=== PATIENT | female | born 1950 | race Caucasian/White ===

== ENCOUNTER 2017-11-01 07:24 | Emergency (ER) | payer OTHER ==
--- OUTSIDE RECORDS SUMMARY | 2017-11-01 07:26 | XMS REPORT ---
:1950 Author Organization e[employer]Works Care Team Providers Name Role Phone Ana Rosa Hull Provider Role Unavailable Allergies No Known Allergies Problems Problem Type Condition Code Onset Dates Condition Status Problem Controlled diabetes mellitus type II E11.9 Active without complication Problem Diabetic polyneuropathy associated E11.42 Active with type 2 diabetes mellitus Problem Incontinence of urine R32 Active Problem Hypothyroidism E03.9 Active Problem Hypertension I10 Active Problem Obstructive sleep apnea G47.33 Active Problem Chronic pain associated with G89.4 Active significant psychosocial dysfunction Problem Generalized anxiety disorder F41.1 Active Problem Tobacco abuse counseling Z71.6 Active Medications No Known Medications Results No Known Results Summary Purpose eClinicalWorks Submission
--- OUTSIDE RECORDS SUMMARY | 2017-11-01 07:26 | XMS REPORT ---
:1950 Author Organization [employer] Care Team Providers Name Role Phone ChesterAna Rosa Provider Role Unavailable Allergies, Adverse Reactions, Alerts Substance Reaction Event Type N.K.D.A. Info Not Available Non Drug Allergy Problems Problem Type Condition Code Onset Dates [...] Active Problem Tobacco abuse counseling Z71.6 Active Assessment Diabetic polyneuropathy associated E11.42 Active with type 2 diabetes mellitus Assessment Generalized anxiety disorder F41.1 Active Assessment Controlled diabetes mellitus type II E11.9 Active without complication Assessment Hypertension I10 Active Medications Medication Code Code Instructions Start End Status Dosage System Date Date Morrison [facility] 71250859987 7.5-325 MG Active 1 tablet Orally every 6 as needed hrs [place] [facility] 44584133617 31 gauge Active USE TWO TIMES A DAY Requip [facility] 85461556966 0.25 MG Orally Active 1 tablet Once a day 1 to 3 hours before bedtime Tricor [facility] 44167597490 145 MG Orally Active 1 tablet Once a day with food Losartan [facility] 99087734065 50 Active TAKE ONE Potassium TABLET BY MOUTH DAILY Paxil [facility] 44679354257 40 MG Orally Active 1 tablet Once a day in the morning Levothyroxine [facility] 57620301017 150 Active TAKE ONE Sodium TABLET BY MOUTH DAILY Detrol [facility] 48425394822 1 MG Orally Active 1 tablet Twice a day Oxybutynin [facility] 42088077875 5 MG Orally Active 1 tablet Chloride ER Once a day Gabapentin [facility] [address]-97 400 MG Orally 4 Active 1 capsule times a day Metformin HCl [facility] 04928698108 1000 MG Orally Active 1 tablet Once a day with a meal Rosuvastatin [facility] 60795717884 20 MG Orally Apr 30, Active 1 tablet Calcium Once a day 2017 Lisinopril [facility] 92611474671 40 Active TAKE ONE TABLET BY MOUTH DAILY Nexium [facility] 33338707500 40 MG Orally Active 1 capsule Once a day Lovastatin [facility] 28841350984 10 MG Orally Active 1 tablet Once a day with the evening meal Symbicort [facility] 10709050509 160-4.5 MCG/ACT Active 2 puffs Inhalation Twice a day Lantus SoloStar [facility] 77312619647 100 unit/mL Active INJECT 70 Subcutaneous UNITS BID UNDER THE SKIN TWO TIMES A DAY Cymbalta [facility] 06218951961 60 MG Orally Active 1 capsule Once a day Results No Known Results Summary Purpose eClinicalWorks Submission
--- NOTE | 2017-11-01 07:57 | ER ---
Nurse's Notes [facility] Name: Kenia Wynn Age: 67 yrs Sex: Female : 1950 Arrival Date: 11/01/2017 Time: 07:28 Bed 17 Private MD: Jennifer Hull Diagnosis: Pain in right shoulder;Other chronic pain Presentation: 11/01 07:35 Presenting complaint: Patient states: R shoulder pain x 3 days with decreased ROM. Pt ss reports she was seen at by her pain management doctor who wanted to obtain an XRAY, but patient did not get XRAY because she "did not have a way" and her medications will not be ready until next week. Transition of care: patient was not received from another setting of care. Onset of symptoms was October 29, 2017. Risk Assessment: Do you want to hurt yourself or someone else? Patient reports no desire to harm self or others. Initial Sepsis Screen: Does the patient meet any 2 criteria? No. Patient's initial sepsis screen is negative. Does the patient have a suspected source of infection? No. Patient's initial sepsis screen is negative. Care prior to arrival: None. 07:35 Method Of Arrival: Ambulatory ss 07:35 Acuity: ALEXX 4 ss Historical: - Allergies: 07:38 No Known Allergies; ss - PMHx: 07:38 Hypertension; COPD; High Cholesterol; Diabetes - IDDM; ss - Immunization history:: Adult Immunizations up to date. - Social history:: Smoking status: Patient uses tobacco products, smokes one pack cigarettes per day. - Ebola Screening: : Patient denies exposure to infectious person Patient denies travel to an Ebola-affected area in the 21 days before illness onset. - Family history:: not pertinent. Screenin:11 Abuse screen: Denies threats or abuse. Nutritional screening: No deficits noted. em Tuberculosis screening: No symptoms or risk factors identified. Fall Risk None identified. Assessment: 07:40 General: Appears in no apparent distress. uncomfortable, Behavior is calm, cooperative. em Pain: Complains of pain in right shoulder. Neuro: Level of Consciousness is awake, alert, obeys commands, Oriented to person, place, time, situation. Cardiovascular: Capillary refill < 3 seconds Patient's skin is warm and dry. Respiratory: Airway is patent Respiratory effort is even, unlabored, Respiratory pattern is regular, symmetrical. GI: Abdomen is round non-distended. : No signs and/or symptoms were reported regarding the genitourinary system. EENT: No signs and/or symptoms were reported regarding the EENT system. Derm: Skin is intact, Skin is pink, warm \\T\\ dry. Musculoskeletal: Range of motion: limited in right shoulder Denies trauma. 09:16 Reassessment: Patient appears in no apparent distress at this time. Patient and/or em family updated on plan of care and expected duration. Pain level reassessed. Patient is alert, oriented x 3, equal unlabored respirations, skin warm/dry/pink. Patient states feeling better. Vital Signs: 07:38 BP 157 / 76; Pulse 70; Resp 17; Temp 97.0(TE); Pulse Ox 98% on R/A; Weight 103.42 kg; ss Height 5 ft. 3 in. (160.02 cm); Pain 10/10; 09:00 BP 142 / 68; Pulse 74; Resp 18; Pulse Ox 99% on R/A; Pain 8/10; em 07:38 Body Mass Index 40.39 (103.42 kg, 160.02 cm) ED Course: 07:28 Patient arrived in ED. mr 07:28 Jennifer Hull is Private Physician. mr 07:30 Carlos De Santiago MD is Attending Physician. prosper 07:38 Triage completed. ss 07:38 Dillon Villegas LVN is Primary Nurse. em 07:38 Arm band placed on right wrist. ss 07:40 Patient has correct armband on for positive identification. Bed in low position. Call em light in reach. 08:05 Shoulder Right (2 View) XRAY In Process Unspecified. EDMS 09:14 No provider procedures requiring assistance completed. Patient did not have IV access em during this emergency room visit. Administered Medications: 08:05 Drug: TORadol 60 mg Route: IM; Site: left gluteus; em 09:00 Follow up: Response: No adverse reaction; Pain is decreased em 08:05 Drug: Decadron 4 mg Route: PO; em 09:00 Follow up: Response: No adverse reaction; Pain is decreased em 08:05 Drug: Demerol 50 mg Route: IM; Site: left deltoid; em 09:00 Follow up: Response: No adverse reaction; Pain is decreased em 08:05 Drug: Phenergan 25 mg Route: IM; Site: left deltoid; em 09:00 Follow up: Response: No adverse reaction; Pain is decreased em Outcome: 07:56 Discharge ordered by . prosper 09:14 Discharged to home ambulatory. em 09:14 Condition: good 09:14 Discharge instructions given to patient, Instructed on discharge instructions, follow up and referral plans. no drinking with medication, no driving heavy equipment, medication usage, Demonstrated understanding of instructions, follow-up care, medications, Prescriptions given X 3. 09:20 Patient left the ED. em Signatures: Dispatcher [employer] EDCarlos Segal MD MD cha Rivera, Maria mr Dillon Villegas, STEFFEN HOUSE SUPERVISOR STEFFEN HOUSE SUPERVISOR Maura Garcia, RN RN ss
--- NOTE | 2017-11-01 07:57 | EDPHYS ---
Physician Documentation [facility] Name: Kenia Wynn Age: 67 yrs Sex: Female : 1950 Arrival Date: 11/01/2017 Time: 07:28 Bed 17 Private MD: Jennifer Hull ED Physician Carlos De Santiago HPI: 11/01 07:53 This 67 yrs old Female presents to ER via Ambulatory with complaints of prosper Shoulder Pain. 07:53 The patient or guardian complains of decreased range of motion, pain, that is acute. prosper right shoulder. Context: The problem was sustained at an unknown site. Onset: The symptoms/episode began/occurred 3 day(s) ago. Modifying factors: the symptoms are alleviated by nothing. remaining still, The symptoms are aggravated by movement, nothing. rotation of arm. Associated signs and symptoms: The patient has no apparent associated signs or symptoms. Severity of symptoms: At their worst the symptoms were moderate, in the emergency department the symptoms are unchanged. The patient has not experienced similar symptoms in the past. Historical: - Allergies: 07:38 No Known Allergies; ss - PMHx: 07:38 Hypertension; COPD; High Cholesterol; Diabetes - IDDM; ss - Immunization history:: Adult Immunizations up to date. - Social history:: Smoking status: Patient uses tobacco products, smokes one pack cigarettes per day. - Ebola Screening: : Patient denies exposure to infectious person Patient denies travel to an Ebola-affected area in the 21 days before illness onset. - Family history:: not pertinent. ROS: 07:53 Constitutional: Negative for fever, chills, and weight loss, Eyes: Negative for injury, prosper pain, redness, and discharge, ENT: Negative for injury, pain, and discharge, Neck: Negative for injury, pain, and swelling, Cardiovascular: Negative for chest pain, palpitations, and edema, Respiratory: Negative for shortness of breath, cough, wheezing, and pleuritic chest pain, Abdomen/GI: Negative for abdominal pain, nausea, vomiting, diarrhea, and constipation, Back: Negative for injury and pain, : Negative for injury, bleeding, discharge, and swelling, Skin: Negative for injury, rash, and discoloration, Neuro: Negative for headache, weakness, numbness, tingling, and seizure, Psych: Negative for depression, anxiety, suicide ideation, homicidal ideation, and hallucinations, Allergy/Immunology: Negative for hives, rash, and allergies, Endocrine: Negative for neck swelling, polydipsia, polyuria, polyphagia, and marked weight changes, Hematologic/Lymphatic: Negative for swollen nodes, abnormal bleeding, and unusual bruising. 07:53 MS/extremity: Positive for decreased range of motion, pain, of the anterior aspect of right shoulder and posterior aspect of right shoulder. Exam: 07:53 Constitutional: This is a well developed, well nourished patient who is awake, alert, prosper and in no acute distress. Head/Face: Normocephalic, atraumatic. Eyes: Pupils equal round and reactive to light, extra-ocular motions intact. Lids and lashes normal. Conjunctiva and sclera are non-icteric and not injected. Cornea within normal limits. Periorbital areas with no swelling, redness, or edema. ENT: Nares patent. No nasal discharge, no septal abnormalities noted. Tympanic membranes are normal and external auditory canals are clear. Oropharynx with no redness, swelling, or masses, exudates, or evidence of obstruction, uvula midline. Mucous membranes moist. Neck: Trachea midline, no thyromegaly or masses palpated, and no cervical lymphadenopathy. Supple, full range of motion without nuchal rigidity, or vertebral point tenderness. No Meningismus. Chest/axilla: Normal chest wall appearance and motion. Nontender with no deformity. No lesions are appreciated. Cardiovascular: Regular rate and rhythm with a normal S1 and S2. No gallops, murmurs, or rubs. Normal PMI, no JVD. No pulse deficits. Respiratory: Lungs have equal breath sounds bilaterally, clear to auscultation and percussion. No rales, rhonchi or wheezes noted. No increased work of breathing, no retractions or nasal flaring. Abdomen/GI: Soft, non-tender, with normal bowel sounds. No distension or tympany. No guarding or rebound. No evidence of tenderness throughout. Back: No spinal tenderness. No costovertebral tenderness. Full range of motion. Female : Normal external genitalia. Skin: Warm, dry with normal turgor. Normal color with no rashes, no lesions, and no evidence of cellulitis. Neuro: Awake and alert, GCS 15, oriented to person, place, time, and situation. Cranial nerves II-XII grossly intact. Motor strength 5/5 in all extremities. Sensory grossly intact. Cerebellar exam normal. Normal gait. Psych: Awake, alert, with orientation to person, place and time. Behavior, mood, and affect are within normal limits. 07:53 Musculoskeletal/extremity: Extremities: noted in the anterior aspect of right shoulder and posterior aspect of right shoulder: decreased ROM, pain, ROM: limited active range of motion due to pain, limited passive range of motion due to pain, Circulation is intact in all extremities. Sensation intact. Compartment Syndrome exam of affected extremity: is normal. DVT Exam: no swelling, no tenderness, negative Homans' sign noted on exam, no appreciated bluish discoloration, no erythema, no increased warmth, pain. Vital Signs: 07:38 BP 157 / 76; Pulse 70; Resp 17; Temp 97.0(TE); Pulse Ox 98% on R/A; Weight 103.42 kg; ss Height 5 ft. 3 in. (160.02 cm); Pain 10/10; 09:00 BP 142 / 68; Pulse 74; Resp 18; Pulse Ox 99% on R/A; Pain 8/10; em 07:38 Body Mass Index 40.39 (103.42 kg, 160.02 cm) ss MDM: 07:30 Patient medically screened. [facility] 07:55 Data reviewed: vital signs, nurses notes, radiologic studies, plain films. [facility] 11/01 07:53 Order name: Shoulder Right (2 View) XRAY [facility] 11/01 07:53 Order name: Ice pack; Complete Time: 07:55 [facility] 11/01 07:58 Order name: Sling; Complete Time: 09:17 [facility] Administered Medications: 08:05 Drug: TORadol 60 mg Route: IM; Site: left gluteus; em 09:00 Follow up: Response: No adverse reaction; Pain is decreased em 08:05 Drug: Decadron 4 mg Route: PO; em 09:00 Follow up: Response: No adverse reaction; Pain is decreased em 08:05 Drug: Demerol 50 mg Route: IM; Site: left deltoid; em 09:00 Follow up: Response: No adverse reaction; Pain is decreased em 08:05 Drug: Phenergan 25 mg Route: IM; Site: left deltoid; em 09:00 Follow up: Response: No adverse reaction; Pain is decreased em Disposition: 08/31/18 07:56 Discharged to Home. Impression: Pain in right shoulder, Other chronic pain. - Condition is Stable. - Discharge Instructions: Joint Pain, Arthritis, Musculoskeletal Pain, Shoulder Pain. - Prescriptions for Ibuprofen 600 mg Oral Tablet - take 1 tablet by ORAL route every 8 hours As needed take with food; 21 tablet. Tylenol- Codeine #3 300-30 mg Oral Tablet - take 2 tablet by ORAL route every 6 hours As needed; 30 tablet. Medrol ([facility]) 4 mg Oral Tablets, Dose Pack - take 1 tablet by ORAL route as directed - follow package instructions; 1 packet. - Medication Reconciliation Form, Thank You Letter, Antibiotic Education, Prescription Opioid Use form. - Follow up: Private Physician; When: 2 - 3 days; Reason: Recheck today's complaints, Continuance of care, Re-evaluation by your physician. - Problem is new. - Symptoms have improved. Signatures: Dispatcher [employer] Carlos Santana MD MD cha Munoz, Edgar, SUBGRADE ROLLER OPERATOR SUBGRADE ROLLER OPERATOR Maura Garcia RN RN ss Corrections: (The following items were deleted from the chart) 07:58 07:56 11/01/2017 07:56 Discharged to Home. Impression: Pain in right shoulder. prosper Condition is Stable. Forms are Medication Reconciliation Form, Thank You Letter, Antibiotic Education, Prescription Opioid Use. Follow up: Private Physician; When: 2 - 3 days; Reason: Recheck today's complaints, Continuance of care, Re-evaluation by your physician. Problem is new. Symptoms have improved. prosper 09:20 07:58 11/01/2017 07:56 Discharged to Home. Impression: Pain in right shoulder; Other em chronic pain. Condition is Stable. Discharge Instructions: Joint Pain, Arthritis, Musculoskeletal Pain, Shoulder Pain. Prescriptions for Ibuprofen 600 mg Oral Tablet - take 1 tablet by ORAL route every 8 hours As needed take with food; 21 tablet, Tylenol-Codeine #3 300-30 mg Oral Tablet - take 2 tablet by ORAL route every 6 hours As needed; 30 tablet, Medrol ([facility]) 4 mg Oral Tablets, Dose Pack - take 1 tablet by ORAL route as directed - follow package instructions; 1 packet. and Forms are Medication Reconciliation Form, Thank You Letter, Antibiotic Education, Prescription Opioid Use. Follow up: Private Physician; When: 2 - 3 days; Reason: Recheck today's complaints, Continuance of care, Re-evaluation by your physician. Problem is new. Symptoms have improved. prosper
[2017-11-01] MEDS ORDERED: MEPERIDINE HCL 50 MG/ML AMP ONE (08:05)
[2017-11-01] MEDS ORDERED: KETOROLAC 30 MG/ML INJ ONE (08:05)
[2017-11-01] MEDS ORDERED: DEXAMETHASONE 4 MG TAB ONE (08:05)
[2017-11-01] MEDS ORDERED: PROMETHAZINE 25 MG/ML VIAL ONE (08:05)
--- NOTE | 2017-11-01 09:15 | RAD REPORT ---
EXAM DESCRIPTION: RAD - Shoulder Right 2 View - 11/01/2017 8:06 am CLINICAL HISTORY: PAIN COMPARISON: No comparisons FINDINGS: Mild AC joint degenerative changes are present. No fracture or dislocation seen. IMPRESSION: Mild AC joint degenerative changes.
== END 2017-11-01 09:20 | disposition home or self-care (01) ==
LOC: ER 07:24
DX: G89.29 Other chronic pain (principal); I10 Essential (primary) hypertension; F17.210 Nicotine dependence, cigarettes, uncomplicated
CPT/HCPCS: 73030; 96372; 99283; J2175; J2550

== ENCOUNTER 2021-05-18 19:12 | Emergency (ER) | payer OTHER ==
--- OUTSIDE RECORDS SUMMARY | 2021-05-18 19:16 | XMS REPORT | Continuity of Care Document ---
:1950 Author Organization [facility] t Address [address] [place] [address] Care Team Providers Name Role Phone Kurtis Attending Clinician Unavailable Ivis Attending Clinician Unavailable Problems This patient has no known problems. Allergies, Adverse Reactions, Alerts This patient has no known allergies or adverse reactions. Medications Ordered Filled Start Stop Current Ordering Indication Dosage Frequency Signature Comments Components Source Medication Medication Date Date Medication? Clinician (SIG) Name Name Marcos Rodríguez Yes Sharri Inject [facility] Procedures This patient has no known procedures. Encounters Start End Encounter Admission Attending Care Care Encounter Source Date/Time Date/Time Type Type Clinicians Facility Department ID 2021-03-29 Outpatient Kurtis RADHA [facility] [id number] [facility] 14:24:54 Sharri [id number] [facility] 2021-03-29 Outpatient PotterST [facility]IASHANNON [facility] [id number] [facility] 14:23:28 Sharri [id number] [facility] 2021-03-29 Outpatient PotterRADHA corbett [facility] [id number] [facility] 13:48:09 Sharri [id number] [facility] 2021-03-29 Outpatient [facility]ANNON [facility] [id number] [facility] 13:47:01 Sharri [id number] [facility] 2021-03-29 Outpatient Kurtis, STLMLC [facility] [id number] [facility] 13:10:13 Sharri [id number] [facility] 2021-03-29 Outpatient Kurtis, STLMLC [facility] [id number] [facility] 13:08:48 Sharri [id number] [facility] 2021-03-29 Outpatient Kurtis, STLMLC [facility] [id number] [facility] 12:52:28 Sharri [id number] [facility] 2021-03-29 Outpatient Kurtis, STLMLC [facility] [id number] 12:07:10 Sharri [id number] [facility] 2021-03-29 Outpatient Kurtis, STLMLC STLC [id number] [facility] [address] 11:06:07 Sharri [id number] [facility] 2021-03-29 Outpatient Ivis, STLMLC STLC [id number] [address] 11:00:07 Sheila [id number] [facility] 2021-03-29 Outpatient Ivis STLMLC STLC [id number] 10:59:24 Sheila [id number] [facility] 2021-04-24 2021-04-24 ambulatory [facility]MLC [facility] [id number] [facility] 2021-02-09 2021-02-09 ambulatory [facility]LMLC [facility] [id number] [facility] 2021-02-01 2021-02-01 ambulatory [facility]LMLC [facility] [id number] [facility] 2020-12-05 2020-12-05 Outpatient [facility]LMLC [facility] [id number] [facility] 2020-11-28 2020-11-28 Outpatient [facility]LMLC [facility] [id number] [facility] 2020-11-10 2020-11-10 Outpatient STLMLC [facility] [id number] [facility] 2020-11-09 2020-11-09 Outpatient [facility]LMLC [facility] [id number] [facility] 2020-11-02 2020-11-02 Outpatient [facility]LMLC [facility] [id number] [facility] 2020-10-27 2020-10-27 Outpatient [facility]LMLC [facility] [id number] [facility] 2020-10-16 2020-10-16 Outpatient [facility]C [facility] [id number] [facility] 2020-10-11 2020-10-11 Outpatient [facility]C [facility] [id number] [facility] 2020-09-23 2020-09-23 Outpatient [facility] [id number] [facility] 2020-08-30 2020-08-30 Outpatient [facility] [id number] [facility] 2020-08-11 2020-08-11 Outpatient [facility] [id number] [facility] 2020-08-02 2020-08-02 Outpatient [facility] [id number] [facility] 2020-07-20 2020-07-20 Outpatient [facility] [id number] [facility] 2020-07-20 2020-07-20 Outpatient [facility] [id number] [facility] 2020-07-12 2020-07-12 Outpatient [facility] [id number] [facility] 2020-07-04 2020-07-04 Outpatient [facility] [id number] [facility] 2020-06-17 2020-06-17 Outpatient [facility] [id number] [facility] 2020-06-16 2020-06-16 Outpatient [facility] [id number] [facility] 2020-04-27 2020-04-27 Outpatient [facility] [id number] [facility] 2020-02-04 2020-02-04 Outpatient [facility] [id number] [facility] 2020-01-26 2020-01-26 Outpatient [facility] [id number] [facility] 2020-01-26 2020-01-26 Outpatient [facility] [id number] [facility] 2019-10-12 2019-10-12 [facility] [id number] [facility] 08[facility]06:00 08:06:00 [facility] l Medicine Outpat[facility] Clin[facility] 2019-10-05 2019-10-05 [facility] [id number] [facility] 14:20:00 14:20:00 [facility] Medicine Outpat[facility] Clin[facility] 2019-09-14 2019-09-14 [facility] [id number] 09:43:00 09:43:[address] [facility] Medicine Outpati [facility] Clinics 2019-07-28 2019-07-28 [facility] [id number] [facility] 16:10:00 16:10:00 [facility] Medicine Outpat[facility] ent Clinics 2019-07-28 2019-07-28 [facility] [id number] [facility] 10:18:00 10:18:00 [facility] Outpat[facility] Clin[facility] 2019-04-15 2019-04-15 [facility] [id number] [facility] 15:42:00 15:42:00 [facility] Clin[facility] 2019-04-09 2019-04-09 [facility] [id number] [facility] 13:08:00 13:08:00 [facility] Outpat[facility] Clinics 2019-03-16 2019-03-16 [facility] [id number] 11:40:00 11:40:00 [facility] Clin[facility] 2019-01-22 2019-01-22 [facility] [id number] [facility] 16:11:00 16:11:00 [facility] Medicine Medicine Outpati ent Clinics 2018-12-11 2018-12-11 [facility] [id number] [facility] 13:00:00 13:00:00 [facility] Outpat[facility] Clinics 2018-09-09 2018-09-09 [facility] [id number] [facility] 13:00:00 13:00:00 [facility] Medicine Outpati ent Clinics 2018-07-15 2018-07-15 [facility] [id number] [facility] 14:44:00 14:44:[address] [facility] Medicine Outpati ent Clinics 2018-06-11 2018-06-11 [facility] [id number] [facility] 16:22:00 16:22:00 [facility] Clin[facility] 2018-06-03 2018-06-03 [facility] [id number] [facility] 13:49:00 13:49:00 [facility] Clin[facility] 2018-05-21 2018-05-21 [facility] [id number] [facility] 13:00:00 13:00:00 [facility] Clin[facility] 2018-03-18 2018-03-18 [facility] [id number] [facility] 09:57:00 09:57:00 [facility] Clin[facility] 2018-02-19 2018-02-19 [facility] [id number] [facility] 13:00:00 13:00:00 [facility] Clin[facility] 2017-12-04 2017-12-04 [facility] [id number] [facility] 14:17:00 14:17:00 [facility] Clin[facility] 2017-11-27 2017-11-27 [facility] [id number] [facility] 13:00:00 13:00:00 [facility] Clin[facility] 2017-09-25 2017-09-25 [facility] [id number] [facility] 16:32:00 16:32:00 [facility] Outpat[facility] Clin[facility] 2017-09-09 2017-09-09 [facility] [id number] [facility] 13:00:00 13:00:00 [facility] Clin[facility] Results This patient has no known results.
[2021-05-18 20:25] LABS: Urine Blood Trace-intact (Negative); Urine Glucose 1+ (Negative); Urine Protein 1+ (Negative); Urine Specific Gravity >=1.030 (1.005-1.030); Urine pH 5.5 (5.0-7.0)
[2021-05-18] MEDS ORDERED: TRAMADOL HCL 50 MG TAB ONE (22:06)
[2021-05-18] MEDS ORDERED: LIDOCAINE 4% PATCH ONE (22:06)
[2021-05-18 22:24] LABS: Urine Amorphous Sediment 2+ /HPF (NONE SEEN); Urine Bacteria >50 /HPF (<20); Urine Mucus 2+ /HPF (NONE SEEN)
--- NOTE | 2021-05-18 22:28 | EDPHYS ---
Physician Documentation [facility] Name: Kenia Wynn Age: 70 yrs Sex: Female : 1950 Arrival Date: 05/18/2021 Time: 19:17 Bed 28 Private MD: ED Physician Hira Kinsey HPI: 05/18 21:30 This 70 yrs old Female presents to ER via Ambulatory with complaints of Low Back Pain, cp Rash on lower back, possible shingles. 21:30 The patient presents with pain that is acute, with no known mechanism of injury. The cp symptoms are located in the left lower back. The pain radiates to the posterior aspect of left leg. 21:30 Onset: The symptoms/episode began/occurred 5 day(s) ago. cp 21:30 Associated signs and symptoms: Pertinent positives: rash to left buttock area times 5 cp days. Severity of symptoms: in the emergency department the symptoms have improved, mildly. Patient reports concern for shingles after noticing rash to right buttock and a UTI due to urinary frequency. Historical: - PMHx: 20:04 COPD; Diabetes - IDDM; High Cholesterol; Hypertension; Shingles; vc1 - Immunization history:: Adult Immunizations up to date, Client reports receiving the 2nd dose of the Covid vaccine. - Social history:: Smoking status: Patient reports the use of cigarette tobacco products, smokes one pack cigarettes per day. ROS: 21:35 Constitutional: Negative for body aches, chills, fever, poor PO intake. cp 21:35 Eyes: Negative for injury, pain, redness, and discharge. cp 21:35 Neck: Negative for pain with movement, pain at rest, stiffness. 21:35 Cardiovascular: Negative for chest pain, palpitations. 21:35 Respiratory: Negative for cough, shortness of breath, wheezing. 21:35 Abdomen/GI: Negative for abdominal pain, nausea, vomiting, and diarrhea, constipation, bowel incontinence. 21:35 Back: Positive for pain at rest, pain with movement, of the left low back and left mid back, Negative for injury or acute deformity, decreased range of motion. 21:35 : Positive for urinary frequency, Negative for difficulty urinating, bladder incontinence. 21:35 MS/extremity: Positive for radiating pain to posterior left leg, Negative for decreased range of motion, paresthesias. 21:35 Skin: Positive for rash, of the left buttock. 21:35 Neuro: Negative for altered mental status, headache, numbness, tingling, weakness. 21:35 All other systems are negative. Exam: 21:40 Constitutional: The patient appears in no acute distress, alert, awake, non-toxic, well cp developed, well nourished, obese. 21:40 Head/Face: Normocephalic, atraumatic. cp 21:40 Eyes: Periorbital structures: appear normal, Conjunctiva: normal, no exudate, no injection, Lids and lashes: appear normal, bilaterally. 21:40 ENT: External ear(s): are unremarkable, Nose: is normal, Mouth: Lips: moist, Oral mucosa: moist, Posterior pharynx: Airway: no evidence of obstruction, patent. 21:40 Neck: ROM/movement: is normal, is supple, without pain, no range of motions limitations. 21:40 Cardiovascular: Rate: normal, Rhythm: regular, Edema: is not appreciated. 21:40 Respiratory: the patient does not display signs of respiratory distress, Respirations: normal, no use of accessory muscles, no retractions, labored breathing, is not present. 21:40 Abdomen/GI: Inspection: obese Palpation: abdomen is soft and non-tender, in all quadrants. 21:40 Back: pain, that is mild, of the left low back and left mid back, ROM is painful, with all movement, CVA tenderness, is absent, vertebral tenderness, is not appreciated, Straight leg raises: of both lower extremities does not illicit pain. 21:40 Skin: rash can be described as mild erythema, on the left buttock. 21:40 Neuro: Orientation: to person, place \T\ time. Mentation: is normal, Motor: moves all fours, strength is normal, Sensation: is normal, Gait: is steady, Deep tendon reflexes are 2+ (normal) in the right patellar, right Achilles, left patellar and left Achilles. Vital Signs: 19:57 BP 112 / 95; Pulse 95; Resp 18; Temp 97.9; Pulse Ox 97% ; Weight 96.62 kg; Height 5 ft. vc1 3 in. (160.02 cm); Pain 4/10; 21:31 BP 132 / 87; Pulse 94; Resp 20; Pulse Ox 98% ; ss7 22:31 BP 114 / 97; Pulse 98; Resp 18; Pulse Ox 98% on R/A; ss7 19:57 Body Mass Index 37.73 (96.62 kg, 160.02 cm) vc1 MDM: 21:09 Patient medically screened. cp 21:40 Differential diagnosis: sciatica, Herniated disc UTI, herpes zoster. cp 22:27 Data reviewed: vital signs, nurses notes, lab test result(s). cp 22:27 Counseling: I had a detailed discussion with the patient and/or guardian regarding: the cp historical points, exam findings, and any diagnostic results supporting the discharge/admit diagnosis, lab results, the need for outpatient follow up, a family practitioner, to return to the emergency department if symptoms worsen or persist or if there are any questions or concerns that arise at home. Response to treatment: the patient's symptoms have markedly improved after treatment, VSS. Pain improved. Will treat for UTI with oral antibiotics and concern for shingles with antivirals. Patient is prescribed hydrocodone for pain. Will discharge to home for continued monitoring. 05/18 20:25 Order name: Urine Dipstick-Ancillary; Complete Time: 21:37 EDMS 05/18 21:37 Interpretation: Reviewed. cp 05/18 21:38 Order name: Urine Microscopic Only; Complete Time: 22:26 cp 05/18 21:38 Order name: Urine Culture cp Administered Medications: 22:11 Drug: Lidoderm Patch 5 % (700 mg/patch) 1 patches Route: Topical; Site: rash; sf1 22:11 Drug: traMADol 50 mg Route: PO; sf1 22:43 Follow up: Response: Pain is decreased ss7 22:43 Drug: Augmentin (Amoxicillin-Clavulanate) 875 mg Route: PO; ss7 22:43 Follow up: Response: Medication administered at discharge. ss7 Disposition Summary: 05/18/21 22:28 Discharge Ordered Location: Home cp Problem: new cp Symptoms: have improved cp Condition: Stable cp Diagnosis - UTI/ Urinary tract infection, site not specified cp - Sciatica, left side cp Followup: cp - With: Private Physician - When: 2 - 3 days - Reason: Recheck today's complaints Discharge Instructions: - Discharge Summary Sheet cp - Sciatica cp - Urinary Tract Infection, Adult cp Forms: - Medication Reconciliation Form cp - Thank You Letter cp - Antibiotic Education cp - Prescription Opioid Use cp Prescriptions: - Lidoderm 5 % Topical adhesive patch,medicated - apply 1 patch by TOPICAL route once daily; 1 box; Refills: 0, Product Selection cp Permitted - Augmentin 875-125 mg Oral Tablet - take 1 tablet by ORAL route every 12 hours for 10 days; 20 tablet; Refills: 0, cp Product Selection Permitted - Cyclobenzaprine 10 mg Oral Tablet - take 1 tablet by ORAL route every 8 hours As needed; 30 tablet; Refills: 0, cp Product Selection Permitted - Acyclovir 800 mg Oral Tablet - take 1 tablet by ORAL route 5 times per day for 10 days; 50 tablet; Refills: 0, cp Product Selection Permitted Signatures: Dispatcher [employer] EDAR Carlos Spencer PA PA cp Calcote, Vanessa RN RN vc1 Galilea So RN RN sf1 Melanie Nuñez RN RN ss7
--- NOTE | 2021-05-18 22:28 | ER ---
Nurse's Notes [facility] Name: Kenia Wynn Age: 70 yrs Sex: Female : 1950 Arrival Date: 05/18/2021 Time: 19:17 Bed 28 Private MD: Diagnosis: UTI/ Urinary tract infection, site not specified;Sciatica, left side Presentation: 05/18 19:57 Chief complaint: Patient states: "I believe I have shingles on my lower back, I've had vc1 them multiple times. My Dr. can't get me in until June. I just can't take the pain anymore.". Coronavirus screen: Vaccine status: Patient reports receiving the 2nd dose of the covid vaccine. "Moderna" At this time, the client does not indicate any symptoms associated with coronavirus-19. Ebola Screen: No symptoms or risks identified at this time. Initial Sepsis Screen: Does the patient meet any 2 criteria? HR > 90 bpm. No. Patient's initial sepsis screen is negative. Does the patient have a suspected source of infection? No. Patient's initial sepsis screen is negative. Risk Assessment: Do you want to hurt yourself or someone else? Patient reports no desire to harm self or others. Onset of symptoms is unknown. 19:57 Method Of Arrival: Ambulatory vc1 19:57 Acuity: ALEXX 3 vc1 Triage Assessment: 20:04 General: Appears in no apparent distress. uncomfortable, Behavior is calm, cooperative, vc1 appropriate for age. Pain: Complains of pain in lumbar area, left low back and right low back Pain does not radiate. Pain currently is 4 out of 10 on a pain scale. at worst was 7 out of 10 on a pain scale. Pain began suddenly. Neuro: Level of Consciousness is awake, alert, obeys commands. Historical: - PMHx: 20:04 COPD; Diabetes - IDDM; High Cholesterol; Hypertension; Shingles; vc1 - Immunization history:: Adult Immunizations up to date, Client reports receiving the 2nd dose of the Covid vaccine. - Social history:: Smoking status: Patient reports the use of cigarette tobacco products, smokes one pack cigarettes per day. Screenin:28 Abuse screen: Denies threats or abuse. Nutritional screening: No deficits noted. ss7 Tuberculosis screening: No symptoms or risk factors identified. Fall Risk IV access (20 points). Assessment: 20:28 General: Appears in no apparent distress. uncomfortable, Behavior is calm, cooperative, ss7 appropriate for age. Pain: Complains of pain in left lower back. Neuro: No deficits noted. Cardiovascular: Heart tones S1 S2. Respiratory: Breath sounds are clear bilaterally. GI: No deficits noted. : No deficits noted. : Reports urgency, urinary frequency. EENT: No deficits noted. Derm: Skin has lesions on noted to the left buttock. Areas are erythematous with no wheeping or oozing. Vital Signs: 19:57 BP 112 / 95; Pulse 95; Resp 18; Temp 97.9; Pulse Ox 97% ; Weight 96.62 kg; Height 5 ft. vc1 3 in. (160.02 cm); Pain 4/10; 21:31 BP 132 / 87; Pulse 94; Resp 20; Pulse Ox 98% ; ss7 22:31 BP 114 / 97; Pulse 98; Resp 18; Pulse Ox 98% on R/A; ss7 19:57 Body Mass Index 37.73 (96.62 kg, 160.02 cm) vc1 ED Course: 19:17 Patient arrived in ED. jj6 20:04 Triage completed. vc1 20:05 Arm band placed on left wrist. vc1 20:26 Melanie Nuñez, RN is Primary Nurse. ss7 20:28 Patient has correct armband on for positive identification. Bed in low position. Call ss7 light in reach. 20:28 No provider procedures requiring assistance completed. Inserted saline lock: 20 gauge ss7 in left antecubital area, using aseptic technique. 21:04 Carlos Spencer PA is PHCP. cp 21:04 Hira Kinsey MD is Attending Physician. cp 21:54 Urine Culture Sent. ss7 21:54 Urine Microscopic Only Sent. ss7 22:30 IV discontinued, intact. ss7 Administered Medications: 22:11 Drug: Lidoderm Patch 5 % (700 mg/patch) 1 patches Route: Topical; Site: rash; sf1 22:11 Drug: traMADol 50 mg Route: PO; sf1 22:43 Follow up: Response: Pain is decreased ss7 22:43 Drug: Augmentin (Amoxicillin-Clavulanate) 875 mg Route: PO; ss7 22:43 Follow up: Response: Medication administered at discharge. ss7 Outcome: 22:28 Discharge ordered by . cp 22:30 Discharged to home ambulatory. ss7 22:30 Condition: good 22:30 Discharge instructions given to patient, Instructed on discharge instructions, Demonstrated understanding of instructions, follow-up care. 22:44 Patient left the ED. ss7 Signatures: Carlos Spencer PA PA cp Jeffries, Jennifer jj6 Janny Aquino RN RN vc1 Galilea So RN RN sf1 Melanie Nuñez RN RN ss7
[2021-05-18] MEDS ORDERED: AMOX/K CLAV 875 MG TAB ONE (22:36)
[2021-05-19 00:46] VITALS: TEMP 97.9
[2021-05-19 00:47] VITALS: O2SAT 98
[2021-05-19 00:52] VITALS: BP 114/97
== END 2021-05-18 22:44 | disposition home or self-care (01) ==
LOC: ER 19:12
DX: N39.0 Urinary tract infection, site not specified (principal); R21 Rash and other nonspecific skin eruption; M54.32 Sciatica, left side; I10 Essential (primary) hypertension; F17.210 Nicotine dependence, cigarettes, uncomplicated
CPT/HCPCS: 81003; 81015; 87086; 87088; 99283

== ENCOUNTER 2022-03-29 17:59 | Emergency (ER) | payer OTHER ==
--- OUTSIDE RECORDS SUMMARY | 2022-03-29 18:08 | XMS REPORT | Continuity of Care Document ---
:1950 Author Organization [facility] t Address [address] [place] [address] Care Team Providers Name Role Phone SHARRI WILLAMS Primary Care Physician Unavailable Sharri Willams Attending Clinician Unavailable Sheila Langston Attending Clinician Unavailable Julio Cesar Delcid DDS Attending Clinician JULIO CESAR DELCID Attending Clinician Unavailable Doctor Unassigned, [place] Attending Clinician Unavailable Only, Adc Test Attending Clinician Unavailable MARVA ALICEA Attending Clinician Unavailable Marva Baker Attending Clinician TREVER PITTS Attending Clinician Unavailable Trever Chacko Attending Clinician PHUONG ZENG Admitting Clinician Unavailable TREVER PITTS Admitting Clinician Unavailable Payers Payer Name Policy Type Policy Number Effective Date Expiration Date S wilian WELCH 53 [id number] 2021 Common HEALTHCARE DUAL 00:00:00 Spirit - [facility] MCR [facility] Dual 53 [id number] 2020 Common Complete MCR 00:00:00 Spirit - [facility] MEDICARE NOVITAS MB [id number] Common [facility] - [facility] MEDICAID [id number] 2018 Common 00:00:00 Spirit - [facility] MEDICARE NOVITAS MB [id number] Common Spirit [facility] Problems Condition Condition Condition Status Onset Resolution Last Treating Co mments Source Name Details Category Date Date Treatment Clinician Date [id number] Opioid Problem Common dependence Spirit , - CHI uncomplica [facility] [id number] Uncontroll Problem Co mmon ed type 2 Spirit diabetes - [facility]I mellitus [facility] [id number] Pulmonary Problem Comm on emphysema, Spirit unspecifie - CHI d emphysema [facility] Chronic Chronic Problem Common pain pain Spirit syndrome associated - CH I with [facility] significan [facility] psychosoci Center al dysfunctio n [id number] Diabetic Problem Commo n polyneurop Spirit athy - CHI associated [facility] with type [facility] 2 diabetes Medica l mellitus Center Generalize Generalize Problem C ommon d anxiety d anxiety Spir it disorder disorder - [facility] Hypothyroi Hypothyroi Problem C ommon dism dism Spirit [facility] Incontinen Incontinen Problem C ommon ce of ce of Spirit urine urine [facility] [id number] 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 - CHI 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 [facility] Counseling Tobacco Problem Comm on about abuse Spirit tobacco counseling - CHI use [facility] Obstructiv Obstructiv Problem C ommon e sleep e sleep Spirit apnea apnea - [facility] Hypertensi Hypertensi Problem C ommon on on Spirit - [facility] [id number] Current Problem Common moderate Spirit episode of - CHI major [facility] depressive [facility] disorder Medical without Center prior episode [id number] Arthritis Problem Co mmon [id number] of knee, Spirit right - [facility] [id number] Major Problem Common depressive Spirit disorder - CHI with [facility] single [facility] episode, Medical in full Center remission No known No known Disease Unive rs active active ity of problems problems [facility] Allergies, Adverse Reactions, Alerts Allergy Allergy Status Severity Reaction(s) Onset Inactive Treating Comm ents Source Name Type Date Date Clinician NO KNOWN Drug Active Univers ALLERGIE Class ity of S [facility] Social History Social Habit Start Date Stop Date Quantity Comments Source History of Current Smoker Common Spi rit - Tobacco Use [facility] Sex Assigned At Common Sp anastasiia - [facility] Exposure to 2021-11-10 2021-11-20 Not sure University of SARS-CoV-2 00:00:00 09:49:00 [place] Medical (event) Branch Smoking Status Start Date Stop Date Source Current Smoker 2022-02-09 00:00:00 Common Spiri t - [facility] Ce nter Tobacco smoking consumption Univ [facility] unknown Branch Medications Ordered Filled Start Stop Current Ordering Indication Dosage Frequency Signature Comments Components Source Medication Medication Date Date Medication? Clinician (SIG) Name Name buPROPion buPROPion 2021-03 No 1{table QD buPROPion HCl ER (SR) HCl ER (SR) 2-12 t_in_th HCl ER 200 MG 200 MG 00:00: e_morni (SR) 200 00 ng} MG buPROPion buPROPion 2021-03 No 1{table BID buPROPion HCl 75 MG HCl 75 MG 0-03 t} HCl 75 MG 00:00: 00 buPROPion buPROPion 2021-03 No 1{table BID buPROPion HCl 75 MG HCl 75 MG 0-03 t} HCl 75 MG 00:00: 00 ibuprofen Yes [id number] 600mg Take 1 U nivers 600 mg 9-19 tablet by ity of tablet 00:00: mouth [place] 00 every 6 Medical (six) Branch hours as needed for Pain (scale 4-6). amoxicillin Yes [id number] 500mg Take 1 Univers 500 mg 9-19 capsule by ity of capsule 00:00: mouth in [place] the Medical morning Branch and 1 capsule at noon and 1 capsule in the evening. chlorhexidi Yes [id number] 15mL Swish and Univers ne 0.12 % 9-19 spit out ity of mouthwash 00:00: 15 mL in [facility] the Medical morning Branch and 15 mL in the evening. ibuprofen Yes [id number] 600mg Take 1 U nivers 600 mg 9-19 tablet by ity of tablet 00:00: mouth [place] [address] every 6 Medical (six) Branch hours as needed for Pain (scale 4-6). amoxicillin Yes [id number] 500mg Take 1 Univers 500 mg 9-19 capsule by ity of capsule 00:00: mouth in [place] 00 the Medical morning Branch and 1 capsule at noon and 1 capsule in the evening. chlorhexidi 2021-0 Yes [id number] 15mL Swish and Univers ne 0.12 % 9-19 spit out ity of mouthwash 00:00: 15 [place] in [place] the Medical morning Branch and 15 mL in the evening. ibuprofen 2021-0 Yes [id number] 600mg Take 1 U nivers 600 mg 9-19 tablet by ity of tablet 00:00: mouth [place] 00 every 6 Medical (six) Branch hours as needed for Pain (scale 4-6). amoxicillin 2021-0 Yes [id number] 500mg Take 1 Univers 500 mg 9-19 capsule by ity of capsule 00:00: mouth in [place] 00 the Medical morning Branch and 1 capsule at noon and 1 capsule in the evening. chlorhexidi 2021-0 Yes [id number] 15mL Swish and Univers ne 0.12 % 9-19 spit out ity of mouthwash 00:00: 15 [place] in [place] 00 the Medical morning Branch and 15 mL in the evening. INSULIN 2021-0 Yes inject Univers GLARGINE,HU 11-09 under the ity of M.REC.ANLOG 13:39: skin. [place] ([place]) Medical Branch METFORMIN 2021-0 Yes Take by Unive rs HCL -08 mouth. ity of (METFORMIN 13:39: [place] ORAL) 29 Medical Branch HYDROcodone 2021-0 Yes 1{tbl} Take 1 Tab Univers -acetaminop 9-08 by mouth ity of hen 10-325 13:39: every 8 [place] mg tablet 29 (eight) Medical hours as Branch needed. gabapentin 2021-0 Yes 400mg Take 400 Un tye (NEURONTIN) 9-08 mg by ity of 400 mg 13:39: mouth 3 [place] capsule 29 (three) Medical times Branch daily. fenofibrate 2021-0 Yes 145mg Take 145 U nivers (TRICOR) 9-08 mg by ity of 145 mg 13:39: mouth [place] tablet 29 daily. Medical Branch aspirin 81 2021-0 Yes 81mg Take 81 mg U nivers mg chewable 9-08 by mouth ity of tablet 13:39: daily. [place] 29 Medical Branch DULoxetine Yes 60mg Take 60 mg U nivers (CYMBALTA) 9-08 by mouth ity o f 60 mg 13:39: daily. [place] capsule [address] [place] [address] Branch lovastatin Yes 10mg Take 10 mg U nivers (MEVACOR) 9-08 by mouth ity of 10 mg 13:39: at [place] tablet 29 bedtime. Medical Branch losartan Yes 50mg Take 50 mg Uni vers (COZAAR) 50 908 by mouth ity of mg tablet 13:39: daily. [address] Branch paroxetine Yes 20mg Take 20 mg U nivers (PAXIL) 20 08 by mouth ity o f mg tablet 13:39: daily. [address] Branch Levothyroxi Yes Take by Uni vers ne 9-08 mouth. ity of (TIROSINT) 13:39: [place] [address] [place] [address] Branch INSULIN Yes inject Univers GLARGINE,HU 11-09 under the ity of M.REC.ANLOG 13:39: skin. [place] ([place]) [address] [place] [address] Branch METFORMIN Yes Take by Unive rs HCL 9-08 mouth. ity of (METFORMIN 13:39: [place] ORAL) [address] [place] [address] Branch HYDROcodone Yes 1{tbl} Take 1 Tab Univers -acetaminop 908 by mouth ity of hen 10-325 13:39: every 8 [place] mg tablet 29 (eight) Medical hours as Branch needed. gabapentin Yes 400mg Take 400 Un tye (NEURONTIN) 9-08 mg by ity of 400 mg 13:39: mouth 3 [place] capsule 29 (three) Medical times Branch daily. fenofibrate Yes 145mg Take 145 U nivers (TRICOR) 9-08 mg by ity of 145 mg 13:39: mouth [place] tablet 29 daily. Medical Branch aspirin 81 Yes 81mg Take 81 mg U nivers mg chewable 9-08 by mouth ity of tablet 13:39: daily. [address] Branch DULoxetine Yes 60mg Take 60 mg U nivers (CYMBALTA) 9-08 by mouth ity o f 60 mg 13:39: daily. [place] capsule 29 Medical Branch lovastatin Yes 10mg Take 10 mg U nivers (MEVACOR) 9-08 by mouth ity of 10 mg 13:39: at [place] tablet 29 bedtime. Medical Branch losartan Yes 50mg Take 50 mg Uni vers (COZAAR) 50 9-08 by mouth ity of mg tablet 13:39: daily. [address] Branch paroxetine Yes 20mg Take 20 mg U nivers (PAXIL) 20 08 by mouth ity o f mg tablet 13:39: daily. [address] Branch Levothyroxi Yes Take by Uni vers ne 9-08 mouth. ity of (TIROSINT) 13:39: [place] 150 mcg Medical [facility] Branch INSULIN Yes inject Univers GLARGINE,HU 11-09 under the ity of M.REC.ANLOG 13:39: skin. [place] ([place]) [address] [place] [address] Branch METFORMIN Yes Take by Unive rs HCL 9-08 mouth. ity of (METFORMIN 13:39: [place] ORAL) [address] [place] [address] Branch HYDROcodone Yes 1{tbl} Take 1 Tab Univers -acetaminop 9-08 by mouth ity of hen 10-325 13:39: every 8 [place] mg tablet 29 (eight) Medical hours as Branch needed. gabapentin Yes 400mg Take 400 Un tye (NEURONTIN) 9-08 mg by ity of 400 mg 13:39: mouth 3 [place] capsule 29 (three) Medical times Branch daily. fenofibrate Yes 145mg Take 145 U nivers (TRICOR) 9-08 mg by ity of 145 mg 13:39: mouth [place] tablet 29 daily. Medical Branch aspirin 81 Yes 81mg Take 81 mg U nivers mg chewable 9-08 by mouth ity of tablet 13:39: daily. [address] Branch DULoxetine Yes 60mg Take 60 mg U nivers (CYMBALTA) 9-08 by mouth ity o f 60 mg 13:39: daily. [address] Branch lovastatin Yes 10mg Take 10 mg U nivers (MEVACOR) 9-08 by mouth ity of 10 mg 13:39: at [place] tablet 29 bedtime. Medical Branch losartan Yes 50mg Take 50 mg Uni vers (COZAAR) 50 11-09 by mouth ity of mg tablet 13:39: daily. [place] [address] Medical Branch paroxetine 0 Yes 20mg Take 20 mg U nivers (PAXIL) 20 11-09 by mouth ity o f mg tablet 13:39: daily. [place] [address] Medical Branch Levothyroxi 0 Yes Take by Uni vers ne 11-09 mouth. ity of (TIROSINT) 13:39: [place] 150 [facility] 29 Medical capsule Branch amoxicillin 0 Yes [id number] 1{tbl} Take 1 Univers -clavulanat 5-15 tablet by ity of e 875-125 00:00: mouth [place] mg per 00 every 12 Medical tablet (twelve) Branch hours. amoxicillin 0 Yes [id number] 1{tbl} Take 1 Univers -clavulanat 5-15 tablet by ity of e 875-125 00:00: mouth [place] mg per 00 every 12 Medical tablet (twelve) Branch hours. amoxicillin 0 Yes [id number] 1{tbl} Take 1 Univers -clavulanat 5-15 tablet by ity of e 875-125 00:00: mouth [place] mg per 00 every 12 Medical tablet (twelve) Branch hours. Bupivicaine Bupivicaine No 2.5mg Common [place] 11-10 Spirit 00:00: - [facility] Kenalog Kenalog No 40mg Common (Triamcinol (Triamcinol 11-10 S pirit one) one) 00:00: - [facility] Bupivicaine Bupivicaine 0 No Common [place] 11-10 Spirit 00:00: - [facility] Kenalog Kenalog 0 No 40mg Common (Triamcinol (Triamcinol - S pirit one) one) 00:00: - [facility] Bupivicaine Bupivicaine 2020-0 No Common [place] 11-10 Spirit 00:00: - [facility] Kenalog Kenalog 0 No 40mg Common (Triamcinol (Triamcinol - S pirit one) one) 00:00: - CHI 00 [facility] Bupivicaine Bupivicaine 1-0 No 2.5mg Common [place] 9 Spirit 00:00: - CHI 00 [facility] Kenalog Kenalog 2020-0 No 40mg Common (Triamcinol (Triamcinol 9-09 S pirit one) one) 00:00: - CHI 00 [facility] Bupivicaine Bupivicaine 2020-0 No 2.5mg Common [place] 11-10 Spirit 00:00: - CHI 00 [facility] Kenalog Kenalog 2020-0 No 40mg Common (Triamcinol (Triamcinol 9- S pirit one) one) 00:00: - CHI 00 [facility] Bupivicaine Bupivicaine 2020-0 No 2.5mg Common [place] 11-10 Spirit 00:00: - CHI 00 [facility] Kenalog Kenalog 2020-0 No 40mg Common (Triamcinol (Triamcinol 9- S pirit one) one) 00:00: - CHI 00 [facility] Bupivicaine Bupivicaine 2020-0 No 2.5mg Common [place] 11-10 Spirit 00:00: - CHI 00 [facility] Kenalog Kenalog 2020-0 No 40mg Common (Triamcinol (Triamcinol 9-09 S pirit one) one) 00:00: - CHI 00 [facility] Bupivicaine Bupivicaine 2020-0 No 2.5mg Common [place] 11-10 Spirit 00:00: - CHI 00 [facility] Kenalog Kenalog 1-0 No 40mg Common (Triamcinol (Triamcinol 9-09 S pirit one) one) 00:00: - CHI 00 [facility] Bupivicaine Bupivicaine 1-0 No 2.5mg Common [place] 11-10 Spirit 00:00: - CHI 00 [facility] Kenalog Kenalog 1-0 No 40mg Common (Triamcinol (Triamcinol 9-09 S pirit one) one) 00:00: - CHI 00 [facility] Bupivicaine Bupivicaine 2021-0 No 2.5mg Common [place] 11-10 Spirit 00:00: - CHI 00 [facility] Kenalog Kenalog 2020-0 No 40mg Common (Triamcinol (Triamcinol 11-10 S pirit one) one) 00:00: - CHI 00 [facility] Bupivicaine Bupivicaine 2020-0 No 2.5mg Common [place] 11-10 Spirit 00:00: - [facility] Kenalog Kenalog 2020-0 No 40mg Common (Triamcinol (Triamcinol 11-10 S pirit one) one) 00:00: - CHI 00 [facility] Linzess 72 Linzess 72 2020-0 2020- No QD Linzess 72 MCG MCG 11-0230 MCG 00:00: 00:00 00 :00 Synvisc 1 Synvisc 1 2020-0 No 6mg Com mon 07-12 Spirit 00:00: - [facility] Bupivicaine Bupivicaine 2020-0 No 2.5mg Common [place] 07-12 Spirit 00:00: - CHI 00 [facility] Synvisc 1 Synvisc 1 2020-0 No 6mg Com mon 07-12 Spirit 00:00: - CHI 00 [facility] Bupivicaine Bupivicaine 2020-0 No Common [place] 07-12 Spirit 00:00: - CHI 00 [facility] Synvisc 1 Synvisc 1 2020-0 No 6mg Com mon - Spirit 00:00: - CHI 00 [facility] Bupivicaine Bupivicaine 2020-0 No Common [place] - Spirit 00:00: - CHI 00 [facility] Synvisc 1 Synvisc 1 2020-0 No 6mg Com mon - Spirit 00:00: - CHI 00 [facility] Bupivicaine Bupivicaine 2020-0 No 2.5mg Common [place] - Spirit 00:00: - CHI 00 [facility] Synvisc 1 Synvisc 1 2020-0 No 6mg Com mon - Spirit 00:00: - CHI 00 [facility] Bupivicaine Bupivicaine 2021-0 No 2.5mg Common [place] - Spirit 00:00: - [facility] Synvisc 1 Synvisc 1 0 No 6mg Com 07-12 Spirit 00:00: - [facility] Bupivicaine Bupivicaine 2020-0 No 2.5mg Common [place] 07-12 Spirit 00:00: - [facility] Synvisc 1 Synvisc 1 0 No 6mg Com 07-12 Spirit 00:00: - [facility] Bupivicaine Bupivicaine 0 No 2.5mg Common [place] 07-12 Spirit 00:00: - [facility] Synvisc 1 Synvisc 1 No 6mg Com 07-12 Spirit 00:00: - [facility] Bupivicaine Bupivicaine 2020-0 No 2.5mg Common [place] 07-12 Spirit 00:00: - [facility] Synvisc 1 Synvisc 1 0 No 6mg Com 07-12 Spirit 00:00: - [facility] Bupivicaine Bupivicaine 2020-0 No 2.5mg Common [place] 07-12 Spirit 00:00: - [facility] Synvisc 1 Synvisc 1 No 6mg Com 07-12 Spirit 00:00: - [facility] Bupivicaine Bupivicaine 0 No 2.5mg Common [place] 07-12 Spirit 00:00: - [facility] Synvisc 1 Synvisc 1 0 No 6mg Com 07-12 Spirit 00:00: - [facility] Bupivicaine Bupivicaine 0 No 2.5mg Common [place] 07-12 Spirit 00:00: - [facility] HYDROcodone 2014- Yes 1{tbl} Take 1 Tab Univers -acetaminop 2-04 by mouth ity of hen (NORCO) 00:00: every 8 [place] as 10-325 mg 00 (eight) Medical tablet hours as Branch needed for Pain (scale 7-10). HYDROcodone 2014-03 Yes 1{tbl} Take 1 Tab Univers -acetaminop 2-04 by mouth ity of hen (NORCO) 00:00: every 8 [place] as 10-325 mg 00 (eight) Medical tablet hours as Branch needed for Pain (scale 7-10). HYDROcodone 2014-03 Yes 1{tbl} Take 1 Tab Univers -acetaminop 2-04 by mouth ity of hen (NORCO) 00:00: every 8 [place] as 10-325 mg 00 (eight) Medical tablet hours as Branch needed for Pain (scale 7-10). Lantus Lantus Yes Sharri Inject 60 Commo n SoloStar SoloStar Mcmullen units Spiri t [facility] NexIUM 40 NexIUM 40 No 1{capsu QD NexIUM 40 MG MG le} MG Losartan Losartan No Losartan Potassium-H Potassium-H Potassium- CTZ 50-12.5 CTZ 50-12.5 HCTZ MG MG 50-12.5 MG PARoxetine PARoxetine No PARoxetine HCl 40 MG HCl 40 MG HCl 40 MG Levothyroxi Levothyroxi No Levothyrox ne Sodium ne Sodium ine Sodium 125 MCG 125 MCG 125 MCG Rybelsus 7 Rybelsus 7 No Rybelsus 7 MG MG MG Breztri Breztri No Breztri Aerosphere Aerosphere Aerosphere 160-9-4.8 160-9-4.8 160-9-4.8 MCG/ACT MCG/ACT MCG/ACT DULoxetine DULoxetine No DULoxetine HCl 60 MG HCl 60 MG HCl 60 MG Rybelsus 14 Rybelsus 14 No QD Rybelsus MG MG 14 MG Hancock Hancock No 1{table BID Hancock 10-325 MG 10-325 MG t_as_ne 10-325 MG eded} Gabapentin Gabapentin No 1{capsu TID Gabapentin 600 MG 600 MG le} 600 MG Century Century No Century Senior Senior Senior Formula Formula Formula metFORMIN metFORMIN No metFORMIN HCl 1000 MG HCl 1000 MG HCl 1000 MG Paxil 40 MG Paxil 40 MG No 1{table QD Paxil 40 t_in_th MG e_morni ng} Pen Advance Pen Advance No Pen 31G X 6 MM 31G X 6 MM Advance 31G X 6 MM Kroger Pen Kroger Pen No Kroger Pen Advance 31G Advance 31G Advance X 6 MM X 6 MM 31G X 6 MM metFORMIN metFORMIN No metFORMIN HCl 1000 MG HCl 1000 MG HCl 1000 MG [place]ancock Hancock No 1{table BID [place]ancock 10-325 MG 10-325 MG t_as_ne 10-325 MG eded} Rosuvastati Rosuvastati No Rosuvastat n Calcium n Calcium in Calcium 20 MG 20 MG 20 MG Losartan Losartan No Losartan Potassium-H Potassium-H Potassium- CTZ 50-12.5 CTZ 50-12.5 HCTZ MG MG 50-12.5 MG Breztri Breztri No Breztri Aerosphere Aerosphere Aerosphere 160-9-4.8 160-9-4.8 160-9-4.8 MCG/ACT MCG/ACT MCG/ACT Gabapentin Gabapentin No 1{capsu TID Gabapentin 600 MG 600 MG le} 600 MG Aspirin 81 Aspirin 81 No Aspirin 81 Century Century No Century Senior Senior Senior Formula Formula Formula NexIUM 40 NexIUM 40 No 1{capsu QD NexIUM 40 MG MG le} MG Lisinopril Lisinopril No Lisinopril 40 40 40 Cymbalta 60 Cymbalta 60 No 1{capsu QD Cymbalta MG MG le} 60 MG Rybelsus 7 Rybelsus 7 No QD Rybelsus 7 MG MG MG Lantus Lantus No Lantus SoloStar SoloStar SoloStar 100 unit/mL 100 unit/mL 100 unit/mL Levothyroxi Levothyroxi No QD Levothyrox ne Sodium ne Sodium ine Sodium 125 MCG 125 MCG 125 MCG Breztri Breztri No Breztri Aerosphere Aerosphere Aerosphere 160-9-4.8 160-9-4.8 160-9-4.8 MCG/ACT MCG/ACT MCG/ACT Pen Advance Pen Advance No Pen 31G X 6 MM 31G X 6 MM Advance 31G X 6 MM Losartan Losartan No Losartan Potassium-H Potassium-H Potassium- CTZ 50-12.5 CTZ 50-12.5 HCTZ MG MG 50-12.5 MG Kroger Pen Kroger Pen No Kroger Pen Advance 31G Advance 31G Advance X 6 MM X 6 MM 31G X 6 MM Lantus Lantus No Lantus SoloStar SoloStar SoloStar 100 unit/mL 100 unit/mL 100 unit/mL metFORMIN metFORMIN No metFORMIN HCl 1000 MG HCl 1000 MG HCl 1000 MG Hancock Hancock No 1{table BID Hancock 10-325 MG 10-325 MG t_as_ne 10-325 MG eded} Levothyroxi Levothyroxi No QD Levothyrox ne Sodium ne Sodium ine Sodium 125 MCG 125 MCG 125 MCG PARoxetine PARoxetine No PARoxetine HCl 40 MG HCl 40 MG HCl 40 MG Aspirin 81 Aspirin 81 No Aspirin 81 Gabapentin Gabapentin No 1{capsu TID Gabapentin 600 MG 600 MG le} 600 MG Rybelsus 7 Rybelsus 7 No Rybelsus 7 MG MG MG NexIUM 40 NexIUM 40 No 1{capsu QD NexIUM 40 MG MG le} MG Senior Senior Senior Formula Formula Formula Cymbalta 60 Cymbalta 60 No 1{capsu QD Cymbalta MG MG le} 60 MG Rosuvastati Rosuvastati No Rosuvastat n Calcium n Calcium in Calcium 20 MG 20 MG 20 MG Lisinopril Lisinopril No Lisinopril 40 40 40 Rybelsus 7 Rybelsus 7 No Rybelsus 7 MG MG MG Senior Senior Senior Formula Formula Formula Pen Advance Pen Advance No Pen 31G X 6 MM 31G X 6 MM Advance 31G X 6 MM Gabapentin Gabapentin No 1{capsu TID Gabapentin 600 MG 600 MG le} 600 MG Lisinopril Lisinopril No Lisinopril 40 40 40 Levothyroxi Levothyroxi No QD Levothyrox ne Sodium ne Sodium ine Sodium 125 MCG 125 MCG 125 MCG Cymbalta 60 Cymbalta 60 No 1{capsu QD Cymbalta MG MG le} 60 MG Pen Advance Pen Advance No Pen 31G X 6 MM 31G X 6 MM Advance 31G X 6 MM Rybelsus 14 Rybelsus 14 No QD Rybelsus MG MG 14 MG Kroger Pen Kroger Pen No Kroger Pen Advance 31G Advance 31G Advance X 6 MM X 6 MM 31G X 6 MM NexIUM 40 NexIUM 40 No 1{capsu QD NexIUM 40 MG MG le} MG Rosuvastati Rosuvastati No Rosuvastat n Calcium n Calcium in Calcium 20 MG 20 MG 20 MG metFORMIN metFORMIN No metFORMIN HCl 1000 MG HCl 1000 MG HCl 1000 MG Aspirin 81 Aspirin 81 No Aspirin 81 Lantus Lantus No Lantus SoloStar SoloStar SoloStar 100 unit/mL 100 unit/mL 100 unit/mL Losartan Losartan No Losartan Potassium-H Potassium-H Potassium- CTZ 50-12.5 CTZ 50-12.5 HCTZ MG MG 50-12.5 MG Breztri Breztri No Breztri Aerosphere Aerosphere Aerosphere 160-9-4.8 160-9-4.8 160-9-4.8 MCG/ACT MCG/ACT MCG/ACT Hancock Hancock No 1{table BID Hancock 10-325 MG 10-325 MG t_as_ne 10-325 MG eded} PARoxetine PARoxetine No PARoxetine HCl 40 MG HCl 40 MG HCl 40 MG Linzess 72 Linzess 72 No Linzess 72 MCG MCG MCG Rybelsus 7 Rybelsus 7 No Rybelsus 7 MG MG MG DULoxetine DULoxetine No DULoxetine HCl 60 MG HCl 60 MG HCl 60 MG NexIUM 40 NexIUM 40 No 1{capsu QD NexIUM 40 MG MG le} MG Rosuvastati Rosuvastati No Rosuvastat n Calcium n Calcium in Calcium 20 MG 20 MG 20 MG Levothyroxi Levothyroxi No Levothyrox ne Sodium ne Sodium ine Sodium 125 MCG 125 MCG 125 MCG Losartan Losartan No Losartan Potassium-H Potassium-H Potassium- CTZ 50-12.5 CTZ 50-12.5 HCTZ MG MG 50-12.5 MG Rybelsus 14 Rybelsus 14 No QD Rybelsus MG MG 14 MG metFORMIN metFORMIN No metFORMIN HCl 1000 MG HCl 1000 MG HCl 1000 MG Kroger Pen Kroger Pen No Kroger Pen Advance 31G Advance 31G Advance X 6 MM X 6 MM 31G X 6 MM BD Pen BD Pen No BD Pen Needle Needle Needle Micro U/F Micro U/F Micro U/F 32G X 6 MM 32G X 6 MM 32G X 6 MM Aspirin 81 Aspirin 81 No Aspirin 81 Hancock Hancock No 1{table BID [place]ancock 10-325 MG 10-325 MG t_as_ne 10-325 MG eded} Lisinopril Lisinopril No Lisinopril 40 40 40 Gabapentin Gabapentin No 1{capsu TID Gabapentin 600 MG 600 MG le} 600 MG [facility] Senior Senior Formula Formula Formula PARoxetine PARoxetine No PARoxetine HCl 40 MG HCl 40 MG HCl 40 MG Breztri Breztri No Breztri Aerosphere Aerosphere Aerosphere 160-9-4.8 160-9-4.8 160-9-4.8 MCG/ACT MCG/ACT MCG/ACT Lantus Lantus No Lantus SoloStar SoloStar SoloStar 100 unit/mL 100 unit/mL 100 unit/mL Pen Advance Pen Advance No Pen 31G X 6 MM 31G X 6 MM Advance 31G X 6 MM Linzess 72 Linzess 72 No Linzess 72 MCG MCG MCG Rybelsus 7 Rybelsus 7 No Rybelsus 7 MG MG MG DULoxetine DULoxetine No DULoxetine HCl 60 MG HCl 60 MG HCl 60 MG NexIUM 40 NexIUM 40 No 1{capsu QD NexIUM 40 MG MG le} MG Rosuvastati Rosuvastati No Rosuvastat n Calcium n Calcium in Calcium 20 MG 20 MG 20 MG Levothyroxi Levothyroxi No Levothyrox ne Sodium ne Sodium ine Sodium 125 MCG 125 MCG 125 MCG Losartan Losartan No Losartan Potassium-H Potassium-H Potassium- CTZ 50-12.5 CTZ 50-12.5 HCTZ MG MG 50-12.5 MG Rybelsus 14 Rybelsus 14 No QD Rybelsus MG MG 14 MG metFORMIN metFORMIN No metFORMIN HCl 1000 MG HCl 1000 MG HCl 1000 MG Kroger Pen Kroger Pen No Kroger Pen Advance 31G Advance 31G Advance X 6 MM X 6 MM 31G X 6 MM BD Pen BD Pen No BD Pen Needle Needle Needle Micro U/F Micro U/F Micro U/F 32G X 6 MM 32G X 6 MM 32G X 6 MM Aspirin 81 Aspirin 81 No Aspirin 81 Hancock Hancock No 1{table BID Hancock 10-325 MG 10-325 MG t_as_ne 10-325 MG eded} Lisinopril Lisinopril No Lisinopril 40 40 40 Gabapentin Gabapentin No 1{capsu TID Gabapentin 600 MG 600 MG le} 600 MG [facility] Senior Senior Formula Formula Formula PARoxetine PARoxetine No PARoxetine HCl 40 MG HCl 40 MG HCl 40 MG Breztri Breztri No Breztri Aerosphere Aerosphere Aerosphere 160-9-4.8 160-9-4.8 160-9-4.8 MCG/ACT MCG/ACT MCG/ACT Lantus Lantus No Lantus SoloStar SoloStar SoloStar 100 unit/mL 100 unit/mL 100 unit/mL Pen Advance Pen Advance No Pen 31G X 6 MM 31G X 6 MM Advance 31G X 6 MM NexIUM 40 NexIUM 40 No 1{capsu QD NexIUM 40 MG MG le} MG Rybelsus 7 Rybelsus 7 No Rybelsus 7 MG MG MG Aspirin 81 Aspirin 81 No Aspirin 81 Lantus Lantus No QD Lantus SoloStar SoloStar SoloStar 100 unit/mL 100 unit/mL 100 unit/mL Losartan Losartan No Losartan Potassium-H Potassium-H Potassium- CTZ 50-12.5 CTZ 50-12.5 HCTZ MG MG 50-12.5 MG metFORMIN metFORMIN No metFORMIN HCl 1000 MG HCl 1000 MG HCl 1000 MG Rosuvastati Rosuvastati No Rosuvastat n Calcium n Calcium in Calcium 20 MG 20 MG 20 MG Hancock Hancock No 1{table BID Hancock 10-325 MG 10-325 MG t_as_ne 10-325 MG eded} Linzess 72 Linzess 72 No Linzess 72 MCG MCG MCG Pen Advance Pen Advance No Pen 31G X 6 MM 31G X 6 MM Advance 31G X 6 MM BD Pen BD Pen No BD Pen Needle Needle Needle Micro U/F Micro U/F Micro U/F 32G X 6 MM 32G X 6 MM 32G X 6 MM Kroger Pen Kroger Pen No Kroger Pen Advance 31G Advance 31G Advance X 6 MM X 6 MM 31G X 6 MM Rybelsus 14 Rybelsus 14 No QD Rybelsus MG MG 14 MG DULoxetine DULoxetine No DULoxetine HCl 60 MG HCl 60 MG HCl 60 MG Levothyroxi Levothyroxi No Levothyrox ne Sodium ne Sodium ine Sodium 125 MCG 125 MCG 125 MCG [employer] Century No Century Senior Senior Senior Formula Formula Formula PARoxetine PARoxetine No PARoxetine HCl 40 MG HCl 40 MG HCl 40 MG Gabapentin Gabapentin No 1{capsu TID Gabapentin 600 MG 600 MG le} 600 MG Breztri Breztri No Breztri Aerosphere Aerosphere Aerosphere 160-9-4.8 160-9-4.8 160-9-4.8 MCG/ACT MCG/ACT MCG/ACT Lisinopril Lisinopril No Lisinopril 40 40 40 Rybelsus 7 Rybelsus 7 No Rybelsus 7 MG MG MG Lisinopril Lisinopril No Lisinopril 40 40 40 Aspirin 81 Aspirin 81 No Aspirin 81 Levothyroxi Levothyroxi No Levothyrox ne Sodium ne Sodium ine Sodium 125 MCG 125 MCG 125 MCG NexIUM 40 NexIUM 40 No 1{capsu QD NexIUM 40 MG MG le} MG [place] Hancock No 1{table BID Hancock 10-325 MG 10-325 MG t_as_ne 10-325 MG eded} Rosuvastati Rosuvastati No Rosuvastat n Calcium n Calcium in Calcium 20 MG 20 MG 20 MG Gabapentin Gabapentin No 1{capsu TID Gabapentin 600 MG 600 MG le} 600 MG Rybelsus 14 Rybelsus 14 No QD Rybelsus MG MG 14 MG PARoxetine PARoxetine No PARoxetine HCl 40 MG HCl 40 MG HCl 40 MG Kroger Pen Kroger Pen No Kroger Pen Advance 31G Advance 31G Advance X 6 MM X 6 MM 31G X 6 MM Lantus Lantus No QD Lantus SoloStar SoloStar SoloStar 100 unit/mL 100 unit/mL 100 unit/mL metFORMIN metFORMIN No metFORMIN HCl 1000 MG HCl 1000 MG HCl 1000 MG Century Century No Century Senior Senior Senior Formula Formula Formula Breztri Bre[facility]tri [facility] Aerosphere 160-9-4.8 160-9-4.8 160-9-4.8 MCG/ACT MCG/ACT MCG/ACT Linzess 72 Linzess 72 No Linzess 72 MCG MCG MCG BD Pen BD Pen No BD Pen Needle Needle Needle Micro U/F Micro U/F Micro U/F 32G X 6 MM 32G X 6 MM 32G X 6 MM Losartan Losartan No Losartan Potassium-H Potassium-H Potassium- CTZ 50-12.5 CTZ 50-12.5 HCTZ MG MG 50-12.5 MG DULoxetine DULoxetine No DULoxetine HCl 60 MG HCl 60 MG HCl 60 MG Hancock Hancock No 1{table BID Hancock 10-325 MG 10-325 MG t_as_ne 10-325 MG eded} Aspirin 81 Aspirin 81 No Aspirin 81 Gabapentin Gabapentin No 1{capsu TID Gabapentin 600 MG 600 MG le} 600 MG Breztri Breztri No Breztri Aerosphere Aerosphere Aerosphere 160-9-4.8 160-9-4.8 160-9-4.8 MCG/ACT MCG/ACT MCG/ACT Losartan Losartan No Losartan Potassium-H Potassium-H Potassium- CTZ 50-12.5 CTZ 50-12.5 HCTZ MG MG 50-12.5 MG Kroger Pen Kroger Pen No Kroger Pen Advance 31G Advance 31G Advance X 6 MM X 6 MM 31G X 6 MM Rosuvastati Rosuvastati No Rosuvastat n Calcium n Calcium in Calcium 20 MG 20 MG 20 MG Lantus Lantus No QD Lantus SoloStar SoloStar SoloStar 100 unit/mL 100 unit/mL 100 unit/mL PARoxetine PARoxetine No PARoxetine HCl 40 MG HCl 40 MG HCl 40 MG Rybelsus 14 Rybelsus 14 No Rybelsus MG MG 14 MG Century Century No Century Senior Senior Senior Formula Formula Formula Rybelsus 7 Rybelsus 7 No Rybelsus 7 MG MG MG BD Pen BD Pen No BD Pen Needle Needle Needle Micro U/F Micro U/F Micro U/F 32G X 6 MM 32G X 6 MM 32G X 6 MM NexIUM 40 NexIUM 40 No 1{capsu QD NexIUM 40 MG MG le} MG Levothyroxi Levothyroxi No Levothyrox ne Sodium ne Sodium ine Sodium 125 MCG 125 MCG 125 MCG DULoxetine DULoxetine No DULoxetine HCl 60 MG HCl 60 MG HCl 60 MG metFORMIN metFORMIN No metFORMIN HCl 1000 MG HCl 1000 MG HCl 1000 MG Lisinopril Lisinopril No Lisinopril 40 40 40 Linzess 72 Linzess 72 No Linzess 72 MCG MCG MCG Linzess 72 Linzess 72 No Linzess 72 MCG MCG MCG Lantus Lantus No QD Lantus SoloStar SoloStar SoloStar 100 unit/mL 100 unit/mL 100 unit/mL BD Pen BD Pen No BD Pen Needle Needle Needle Micro U/F Micro U/F Micro U/F 32G X 6 MM 32G X 6 MM 32G X 6 MM DULoxetine DULoxetine No DULoxetine HCl 60 MG HCl 60 MG HCl 60 MG Atorvastati Atorvastati No 1{table QD Atorvastat n Calcium n Calcium t} in Calcium 40 MG 40 MG 40 MG Losartan Losartan No Losartan Potassium-H Potassium-H Potassium- CTZ 50-12.5 CTZ 50-12.5 HCTZ MG MG 50-12.5 MG Hancock Hancock No 1{table BID Hancock 10-325 MG 10-325 MG t_as_ne 10-325 MG eded} PARoxetine PARoxetine No PARoxetine HCl 40 MG HCl 40 MG HCl 40 MG NexIUM 40 NexIUM 40 No 1{capsu QD NexIUM 40 MG MG le} MG Gabapentin Gabapentin No 1{capsu TID Gabapentin 600 MG 600 MG le} 600 MG Levothyroxi Levothyroxi No Levothyrox ne Sodium ne Sodium ine Sodium 125 MCG 125 MCG 125 MCG Lisinopril Lisinopril No Lisinopril 40 40 40 Aspirin 81 Aspirin 81 No Aspirin 81 metFORMIN metFORMIN No metFORMIN HCl 1000 MG HCl 1000 MG HCl 1000 MG Century Century No Century Senior Senior Senior Formula Formula Formula Breztri Breztri No Breztri Aerosphere Aerosphere Aerosphere 160-9-4.8 160-9-4.8 160-9-4.8 MCG/ACT MCG/ACT MCG/ACT Rybelsus 14 Rybelsus 14 No Rybelsus MG MG 14 MG Rybelsus 7 Rybelsus 7 No Rybelsus 7 MG MG MG Kroger Pen Kroger Pen No Kroger Pen Advance 31G Advance 31G Advance X 6 MM X 6 MM 31G X 6 MM Linzess 72 Linzess 72 No Linzess 72 MCG MCG MCG Lantus Lantus No QD Lantus SoloStar SoloStar SoloStar 100 unit/mL 100 unit/mL 100 unit/mL BD Pen BD Pen No BD Pen Needle Needle Needle Micro U/F Micro U/F Micro U/F 32G X 6 MM 32G X 6 MM 32G X 6 MM Lisinopril Lisinopril No Lisinopril 40 40 40 Atorvastati Atorvastati No 1{table QD Atorvastat n Calcium n Calcium t} in Calcium 40 MG 40 MG 40 MG Aspirin 81 Aspirin 81 No Aspirin 81 Hancock Hancock No 1{table BID Hancock 10-325 MG 10-325 MG t_as_ne 10-325 MG eded} NexIUM 40 NexIUM 40 No 1{capsu QD NexIUM 40 MG MG le} MG Losartan Losartan No Losartan Potassium-H Potassium-H Potassium- CTZ 50-12.5 CTZ 50-12.5 HCTZ MG MG 50-12.5 MG PARoxetine PARoxetine No PARoxetine HCl 40 MG HCl 40 MG HCl 40 MG Breztri Breztri No Breztri Aerosphere Aerosphere Aerosphere 160-9-4.8 160-9-4.8 160-9-4.8 MCG/ACT MCG/ACT MCG/ACT Levothyroxi Levothyroxi No Levothyrox ne Sodium ne Sodium ine Sodium 125 MCG 125 MCG 125 MCG Rybelsus 7 Rybelsus 7 No Rybelsus 7 MG MG MG Rybelsus 14 Rybelsus 14 No Rybelsus MG MG 14 MG DULoxetine DULoxetine No DULoxetine HCl 60 MG HCl 60 MG HCl 60 MG metFORMIN metFORMIN No metFORMIN HCl 1000 MG HCl 1000 MG HCl 1000 MG Gabapentin Gabapentin No 1{capsu TID Gabapentin 600 MG 600 MG le} 600 MG [employer] Century No Century Senior Senior Senior Formula Formula Formula Kroger Pen Kroger Pen No Kroger Pen Advance 31G Advance 31G Advance X 6 MM X 6 MM 31G X 6 MM Linzess 72 Linzess 72 No Linzess 72 MCG MCG MCG Lantus Lantus No QD Lantus SoloStar SoloStar SoloStar 100 unit/mL 100 unit/mL 100 unit/mL BD Pen BD Pen No BD Pen Needle Needle Needle Micro U/F Micro U/F Micro U/F 32G X 6 MM 32G X 6 MM 32G X 6 MM Lisinopril Lisinopril No Lisinopril 40 40 40 Atorvastati Atorvastati No 1{table QD Atorvastat n Calcium n Calcium t} in Calcium 40 MG 40 MG 40 MG Aspirin 81 Aspirin 81 No Aspirin 81 Hancock Hancock No 1{table BID Hancock 10-325 MG 10-325 MG t_as_ne 10-325 MG eded} NexIUM 40 NexIUM 40 No 1{capsu QD NexIUM 40 MG MG le} MG Losartan Losartan No Losartan Potassium-H Potassium-H Potassium- CTZ 50-12.5 CTZ 50-12.5 HCTZ MG MG 50-12.5 MG PARoxetine PARoxetine No PARoxetine HCl 40 MG HCl 40 MG HCl 40 MG Breztri Breztri No Breztri Aerosphere Aerosphere Aerosphere 160-9-4.8 160-9-4.8 160-9-4.8 MCG/ACT MCG/ACT MCG/ACT Levothyroxi Levothyroxi No Levothyrox ne Sodium ne Sodium ine Sodium 125 MCG 125 MCG 125 MCG Rybelsus 7 Rybelsus 7 No Rybelsus 7 MG MG MG Rybelsus 14 Rybelsus 14 No Rybelsus MG MG 14 MG DULoxetine DULoxetine No DULoxetine HCl 60 MG HCl 60 MG HCl 60 MG metFORMIN metFORMIN No metFORMIN HCl 1000 MG HCl 1000 MG HCl 1000 MG Gabapentin Gabapentin No 1{capsu TID Gabapentin 600 MG 600 MG le} 600 MG Century Century No Senior Senior Senior Formula Formula Formula Kroger Pen Kroger Pen No Kroger Pen Advance 31G Advance 31G Advance X 6 MM X 6 MM 31G X 6 MM Lantus Lantus No QD Lantus SoloStar SoloStar SoloStar 100 unit/mL 100 unit/mL 100 unit/mL Kroger Pen Kroger Pen No Kroger Pen Advance 31G Advance 31G Advance X 6 MM X 6 MM 31G X 6 MM Atorvastati Atorvastati No 1{table QD Atorvastat n Calcium n Calcium t} in Calcium 40 MG 40 MG 40 MG Lisinopril Lisinopril No Lisinopril 40 40 40 Linzess 72 Linzess 72 No Linzess 72 MCG MCG MCG Aspirin 81 Aspirin 81 No Aspirin 81 BD Pen BD Pen No BD Pen Needle Needle Needle Micro U/F Micro U/F Micro U/F 32G X 6 MM 32G X 6 MM 32G X 6 MM NexIUM 40 NexIUM 40 No 1{capsu QD NexIUM 40 MG MG le} MG Losartan Losartan No Losartan Potassium-H Potassium-H Potassium- CTZ 50-12.5 CTZ 50-12.5 HCTZ MG MG 50-12.5 MG PARoxetine PARoxetine No PARoxetine HCl 40 MG HCl 40 MG HCl 40 MG Levothyroxi Levothyroxi No Levothyrox ne Sodium ne Sodium ine Sodium 125 MCG 125 MCG 125 MCG Rybelsus 7 Rybelsus 7 No Rybelsus 7 MG MG MG Breztri Breztri No Breztri Aerosphere Aerosphere Aerosphere 160-9-4.8 160-9-4.8 160-9-4.8 MCG/ACT MCG/ACT MCG/ACT DULoxetine DULoxetine No DULoxetine HCl 60 MG HCl 60 MG HCl 60 MG Rybelsus 14 Rybelsus 14 No QD Rybelsus MG MG 14 MG Hancock Hancock No 1{table BID Hancock 10-325 MG 10-325 MG t_as_ne 10-325 MG eded} Gabapentin Gabapentin No 1{capsu TID Gabapentin 600 MG 600 MG le} 600 MG [email or web address] Formula Formula Formula metFORMIN metFORMIN No metFORMIN HCl 1000 MG HCl 1000 MG HCl 1000 MG buPROPion buPROPion No buPROPion HCl 75 MG HCl 75 MG HCl 75 MG Kroger Pen Kroger Pen No Kroger Pen Advance 31G Advance 31G Advance X 6 MM X 6 MM 31G X 6 MM Atorvastati Atorvastati No 1{table QD Atorvastat n Calcium n Calcium t} in Calcium 40 MG 40 MG 40 MG PARoxetine PARoxetine No PARoxetine HCl 40 MG HCl 40 MG HCl 40 MG metFORMIN metFORMIN No metFORMIN HCl 1000 MG HCl 1000 MG HCl 1000 MG BD Pen BD Pen No BD Pen Needle Needle Needle Micro U/F Micro U/F Micro U/F 32G X 6 MM 32G X 6 MM 32G X 6 MM Rybelsus 14 Rybelsus 14 No QD Rybelsus MG MG 14 MG Gabapentin Gabapentin No 1{capsu TID Gabapentin 600 MG 600 MG le} 600 MG NexIUM 40 NexIUM 40 No 1{capsu QD NexIUM 40 MG MG le} MG Lantus Lantus No Lantus SoloStar SoloStar SoloStar 100 unit/mL 100 unit/mL 100 unit/mL Breztri Breztri No Breztri Aerosphere Aerosphere Aerosphere 160-9-4.8 160-9-4.8 160-9-4.8 MCG/ACT MCG/ACT MCG/ACT [email or web address] Formula Formula Formula DULoxetine DULoxetine No DULoxetine HCl 60 MG HCl 60 MG HCl 60 MG Aspirin 81 Aspirin 81 No Aspirin 81 Lisinopril Lisinopril No Lisinopril 40 40 40 H[place] Hancock No 1{table BID Hancock 10-325 MG 10-325 MG t_as_ne 10-325 MG eded} Levothyroxi Levothyroxi No Levothyrox ne Sodium ne Sodium ine Sodium 125 MCG 125 MCG 125 MCG Losartan Losartan No Losartan Potassium-H Potassium-H Potassium- CTZ 50-12.5 CTZ 50-12.5 HCTZ MG MG 50-12.5 MG Linzess 72 Linzess 72 No Linzess 72 MCG MCG MCG Lantus Lantus No QD Lantus SoloStar SoloStar SoloStar 100 unit/mL 100 unit/mL 100 unit/mL Kroger Pen Kroger Pen No Kroger Pen Advance 31G Advance 31G Advance X 6 MM X 6 MM 31G X 6 MM Atorvastati Atorvastati No 1{table QD Atorvastat n Calcium n Calcium t} in Calcium 40 MG 40 MG 40 MG Lisinopril Lisinopril No Lisinopril 40 40 40 Linzess 72 Linzess 72 No Linzess 72 MCG MCG MCG Aspirin 81 Aspirin 81 No Aspirin 81 BD Pen BD Pen No BD Pen Needle Needle Needle Micro U/F Micro U/F Micro U/F 32G X 6 MM 32G X 6 MM 32G X 6 MM Immunizations Ordered Immunization Filled Immunization Date Status Commen ts Source Name Name Flucelvax - single Flucelvax - single 2021-11-13 Completed [facility] dose syringe dose syringe 16:23:00 - [facility] Flucelvax - single Flucelvax - single 2021-11-13 Completed [facility] dose syringe dose syringe 16:23:00 - [facility] Flucelvax - single Flucelvax - single 2021-11-13 Completed [facility] dose syringe dose syringe 16:23:00 - [facility] Flucelvax - single Flucelvax - single 2021-11-13 Completed [facility] dose syringe dose syringe 16:23:00 - [facility] Flucelvax - single Flucelvax - single 2021-11-13 Completed [facility] dose syringe dose syringe 16:23:00 - [facility] Flucelvax - single Flucelvax - single 2021-11-13 Completed [facility] dose syringe dose syringe 16:23:00 - [facility] FLUZONE HIGH DOSE FLUZONE HIGH DOSE 2021-02-01 Completed [facility] OVER 65 OVER 65 11:51:00 - [facility] FLUZONE HIGH DOSE FLUZONE HIGH DOSE 2021-02-01 Completed [facility] OVER 65 OVER 65 11:51:00 - [facility] FLUZONE HIGH DOSE FLUZONE HIGH DOSE 2021-02-01 Completed [facility] OVER 65 OVER 65 11:51:00 - [facility] FLUZONE HIGH DOSE FLUZONE HIGH DOSE 2021-02-01 Completed [facility] OVER 65 OVER 65 11:51:00 - [facility] FLUZONE HIGH DOSE FLUZONE HIGH DOSE 2021-02-01 Completed [facility] OVER 65 OVER 65 11:51:00 - [facility] FLUZONE HIGH DOSE FLUZONE HIGH DOSE 2021-02-01 Completed [facility] OVER 65 OVER 65 11:51:00 - [facility] FLUZONE HIGH DOSE FLUZONE HIGH DOSE 2021-02-01 Completed [facility] OVER 65 OVER 65 11:51:00 - [facility] FLUZONE HIGH DOSE FLUZONE HIGH DOSE 2021-02-01 Completed [facility] OVER 65 OVER 65 11:51:00 - [facility] FLUZONE HIGH DOSE FLUZONE HIGH DOSE 2021-02-01 Completed [facility] OVER 65 OVER 65 11:51:00 - [facility] FLUZONE HIGH DOSE FLUZONE HIGH DOSE 2021-02-01 Completed [facility] OVER 65 OVER 65 11:51:00 - [facility] FLUZONE HIGH DOSE FLUZONE HIGH DOSE 2021-02-01 Completed [facility] OVER 65 OVER 65 11:51:00 - [facility] FLUZONE HIGH DOSE FLUZONE HIGH DOSE 2021-02-01 Completed [facility] OVER 65 OVER 65 11:51:00 - [facility] FLUZONE HIGH DOSE FLUZONE HIGH DOSE 2021-02-01 Completed [facility] OVER 65 OVER 65 11:51:00 - [facility] Bupivicaine [place] Bupivicaine [place] 2020-11-10 Completed [facility] 08:30:00 - [facility] Kenalog Kenalog 2020-11-10 Completed [facility] (Triamcinolone) (Triamcinolone) 08:30:00 - [facility] Moderna COVID-19 Moderna COVID-19 2020-07-22 Completed [facility] Vaccine Vaccine 14:48:00 - [facility] Moderna COVID-19 Moderna COVID-19 2020-07-22 Completed [facility] Vaccine Vaccine 14:48:00 - [facility] Moderna COVID-19 Moderna COVID-19 2020-07-22 Completed [facility] Vaccine Vaccine 14:48:00 - [facility] Moderna COVID-19 Moderna COVID-19 2020-07-22 Completed [facility] Vaccine Vaccine 14:48:00 - [facility] Moderna COVID-19 Moderna COVID-19 2020-07-22 Completed [facility] Vaccine Vaccine 14:48:00 - [facility] Moderna COVID-19 Moderna COVID-19 2020-07-22 Completed [facility] Vaccine Vaccine 14:48:00 - [facility] Moderna COVID-19 Moderna COVID-19 2020-07-22 Completed [facility] Vaccine Vaccine 14:48:00 - [facility] Moderna COVID-19 Moderna COVID-19 2020-07-22 Completed [facility] Vaccine Vaccine 14:48:00 - [facility] Moderna COVID-19 Moderna COVID-19 2020-07-22 Completed [facility] Vaccine Vaccine 14:48:00 - [facility] Moderna COVID-19 Moderna COVID-19 2020-07-22 Completed [facility] Vaccine Vaccine 14:48:00 [facility] Moderna COVID-19 Moderna COVID-19 2020-07-22 Completed [facility] Vaccine Vaccine 14:48:00 [facility] Moderna COVID-19 Moderna COVID-19 2020-07-22 Completed [facility] Vaccine Vaccine 14:48:00 [facility] Moderna COVID-19 Moderna COVID-19 2020-07-22 Completed [facility] Vaccine Vaccine 14:48:00 - [facility] Bupivicaine [place] Bupivicaine [place] 2020-07-12 Completed [facility] 09:13:00 - [facility] Synvisc 1 Synvisc 1 2020-07-12 Completed [facility] 08:50:00 - [facility] Moderna COVID-19 Moderna COVID-19 2020-06-22 Completed [facility] Vaccine Vaccine 14:40:00 - [facility] Moderna COVID-19 Moderna COVID-19 2020-06-22 Completed [facility] Vaccine Vaccine 14:40:00 - [facility] Moderna COVID-19 Moderna COVID-19 2020-06-22 Completed [facility] Vaccine Vaccine 14:40:00 - [facility] Moderna COVID-19 Moderna COVID-19 2020-06-22 Completed [facility] Vaccine Vaccine 14:40:00 - [facility] Moderna COVID-19 Moderna COVID-19 2020-06-22 Completed [facility] Vaccine Vaccine 14:40:00 - [facility] Moderna COVID-19 Moderna COVID-19 2020-06-22 Completed [facility] Vaccine Vaccine 14:40:00 - [facility] Moderna COVID-19 Moderna COVID-19 2020-06-22 Completed [facility] Vaccine Vaccine 14:40:00 [facility] Moderna COVID-19 Moderna COVID-19 2020-06-22 Completed [facility] Vaccine Vaccine 14:40:00 - [facility] Moderna COVID-19 Moderna COVID-19 2020-06-22 Completed [facility] Vaccine Vaccine 14:40:00 - [facility] Moderna COVID-19 Moderna COVID-19 2020-06-22 Completed [facility] Vaccine Vaccine 14:40:00 [facility] Moderna COVID-19 Moderna COVID-19 2020-06-22 Completed [facility] Vaccine Vaccine 14:40:00 - [facility] Moderna COVID-19 Moderna COVID-19 2020-06-22 Completed [facility] Vaccine Vaccine 14:40:00 - [facility] Moderna COVID-19 Moderna COVID-19 2020-06-22 Completed [facility] Vaccine Vaccine 14:40:00 - [facility] Moderna COVID-19 Moderna COVID-19 2020-06-22 Completed [facility] Vaccine Vaccine 14:40:00 - [facility] Shingrix Shingrix 2020-06-02 Completed [facility] 14:49:00 - [facility] Shingrix Shingrix 2020-06-02 Completed [facility] 14:49:00 - [facility] Shingrix Shingrix 2020-06-02 Completed [facility] 14:49:00 - [facility] Shingrix Shingrix 2020-06-02 Completed [facility] 14:49:00 - [facility] Shingrix Shingrix 2020-06-02 Completed [facility] 14:49:00 - [facility] Shingrix Shingrix 2020-06-02 Completed [facility] 14:49:00 - [facility] Shingrix Shingrix 2020-06-02 Completed [facility] 14:49:00 - [facility] Shingrix Shingrix 2020-06-02 Completed [facility] 14:49:00 - [facility] Shingrix Shingrix 2020-06-02 Completed [facility] 14:49:00 - [facility] Shingrix Shingrix 2020-06-02 Completed [facility] 14:49:00 - [facility] Shingrix Shingrix 2020-06-02 Completed [facility] 14:49:00 - [facility] Shingrix Shingrix 2020-06-02 Completed [facility] 14:49:00 - [facility] Shingrix Shingrix 2020-06-02 Completed [facility] 14:49:00 [facility] Prevnar 13 (PCV13) Prevnar 13 (PCV13) 2020-03-04 Completed [facility] 14:49:00 - [facility] Prevnar 13 (PCV13) Prevnar 13 (PCV13) 2020-03-04 Completed [facility] 14:49:00 [facility] Prevnar 13 (PCV13) Prevnar 13 (PCV13) 2020-03-04 Completed [facility] 14:49:00 [facility] Prevnar 13 (PCV13) Prevnar 13 (PCV13) 2020-03-04 Completed [facility] 14:49:00 [facility] Prevnar 13 (PCV13) Prevnar 13 (PCV13) 2020-03-04 Completed [facility] 14:49:00 [facility] Prevnar 13 (PCV13) Prevnar 13 (PCV13) 2020-03-04 Completed [facility] 14:49:00 [facility] Prevnar 13 (PCV13) Prevnar 13 (PCV13) 2020-03-04 Completed [facility] 14:49:00 [facility] Prevnar 13 (PCV13) Prevnar 13 (PCV13) 2020-03-04 Completed [facility] 14:49:00 [facility] Prevnar 13 (PCV13) Prevnar 13 (PCV13) 2020-03-04 Completed [facility] 14:49:00 [facility] Prevnar 13 (PCV13) Prevnar 13 (PCV13) 2020-03-04 Completed [facility] 14:49:00 [facility] Prevnar 13 (PCV13) Prevnar 13 (PCV13) 2020-03-04 Completed [facility] 14:49:00 [facility] Prevnar 13 (PCV13) Prevnar 13 (PCV13) 2020-03-04 Completed [facility] 14:49:00 [facility] Prevnar 13 (PCV13) Prevnar 13 (PCV13) 2020-03-04 Completed [facility] 14:49:00 [facility] Fluzone 6-35 months Fluzone 6-35 months 2020-01-13 Completed [facility] 17:25:00 [facility] Fluzone 6-35 months Fluzone 6-35 months 2020-01-13 Completed [facility] 17:25:00 [facility] Fluzone 6-35 months Fluzone 6-35 months 2020-01-13 Completed [facility] 17:25:00 - [facility] Fluzone 6-35 months Fluzone 6-35 months 2020-01-13 Completed [facility] 17:25:00 - [facility] Fluzone 6-35 months Fluzone 6-35 months 2020-01-13 Completed [facility] 17:25:00 [facility] Fluzone 6-35 months Fluzone 6-35 months 2020-01-13 Completed [facility] 17:25:00 - [facility] Fluzone 6-35 months Fluzone 6-35 months 2020-01-13 Completed [facility] 17:25:00 [facility] Fluzone 6-35 months Fluzone 6-35 months 2020-01-13 Completed [facility] 17:25:00 [facility] Fluzone 6-35 months Fluzone 6-35 months 2020-01-13 Completed [facility] 17:25:00 - [facility] Fluzone 6-35 months Fluzone 6-35 months 2020-01-13 Completed [facility] 17:25:00 - [facility] Fluzone 6-35 months Fluzone 6-35 months 2020-01-13 Completed [facility] 17:25:00 - [facility] Fluzone 6-35 months Fluzone 6-35 months 2020-01-13 Completed [facility] 17:25:00 [facility] Fluzone 6-35 months Fluzone 6-35 months 2020-01-13 Completed [facility] 17:25:00 [facility] Fluzone 6-35 months Fluzone 6-35 months 2020-01-13 Completed [facility] 17:25:00 [facility] Prevnar 13 Prevnar 13 2016-12-04 Completed [facility] -Pneumonia Vaccine -Pneumonia Vaccine 13:25:00 [facility] Prevnar 13 Prevnar 13 2016-12-04 Completed [facility] -Pneumonia Vaccine -Pneumonia Vaccine 13:25:00 [facility] Prevnar 13 Prevnar 13 2016-12-04 Completed [facility] -Pneumonia Vaccine -Pneumonia Vaccine 13:25:00 - [facility] Prevnar 13 Prevnar 13 2016-12-04 Completed [facility] -Pneumonia Vaccine -Pneumonia Vaccine 13:25:00 - [facility] Prevnar 13 Prevnar 13 2016-12-04 Completed [facility] -Pneumonia Vaccine -Pneumonia Vaccine 13:25:00 - [facility] Prevnar 13 Prevnar 13 2016-12-04 Completed [facility] -Pneumonia Vaccine -Pneumonia Vaccine 13:25:00 - [facility] Prevnar 13 Prevnar 13 2016-12-04 Completed [facility] -Pneumonia Vaccine -Pneumonia Vaccine 13:25:00 - [facility] Prevnar 13 Prevnar 13 2016-12-04 Completed [facility] -Pneumonia Vaccine -Pneumonia Vaccine 13:25:00 - [facility] Prevnar 13 Prevnar 13 2016-12-04 Completed [facility] -Pneumonia Vaccine -Pneumonia Vaccine 13:25:00 - [facility] Prevnar 13 Prevnar 13 2016-12-04 Completed [facility] -Pneumonia Vaccine -Pneumonia Vaccine 13:25:00 - [facility] Prevnar 13 Prevnar 13 2016-12-04 Completed [facility] -Pneumonia Vaccine -Pneumonia Vaccine 13:25:00 - [facility] Prevnar 13 Prevnar 13 2016-12-04 Completed [facility] -Pneumonia Vaccine -Pneumonia Vaccine 13:25:00 - [facility] Prevnar 13 Prevnar 13 2016-12-04 Completed [facility] -Pneumonia Vaccine -Pneumonia Vaccine 13:25:00 - [facility] Prevnar 13 Prevnar 13 2016-12-04 Completed [facility] -Pneumonia Vaccine -Pneumonia Vaccine 13:25:00 - [facility] Adacel (Tdap) Adacel (Tdap) 2015-05-31 [facility]pleted [facility] 13:24:00 [facility] Adacel (Tdap) Adacel (Tdap) 2015-05-31 Completed [facility] 13:24:00 - [facility] Adacel (Tdap) Adacel (Tdap) 2015-05-31 Completed [facility] 13:24:00 - [facility] Adacel (Tdap) Adacel (Tdap) 2015-05-31 [facility]pleted [facility] 13:24:00 - [facility] Adacel (Tdap) Adacel (Tdap) 2015-05-31 Completed [facility] 13:24:00 - [facility] Adacel (Tdap) Adacel (Tdap) 2015-05-31 Completed [facility] 13:24:00 - [facility] Adacel (Tdap) Adacel (Tdap) 2015-05-31 Completed [facility] 13:24:00 - [facility] Adacel (Tdap) Adacel (Tdap) 2015-05-31 Completed [facility] 13:24:00 - [facility] Adacel (Tdap) Adacel (Tdap) 2015-05-31 Completed [facility] 13:24:00 - [facility] Adacel (Tdap) Adacel (Tdap) 2015-05-31 Completed [facility] 13:24:00 - [facility] Adacel (Tdap) Adacel (Tdap) 2015-05-31 Completed [facility] 13:24:00 - [facility] Adacel (Tdap) Adacel (Tdap) 2015-05-31 Completed [facility] 13:24:00 - [facility] Adacel (Tdap) Adacel (Tdap) 2015-05-31 Completed [facility] 13:24:00 - [facility] Adacel (Tdap) Adacel (Tdap) 2015-05-31 [facility]pleted [facility] 13:24:00 [facility] Pneumovax (PPSV23) Pneumovax (PPSV23) 2015-01-03 Completed [facility] 13:25:00 [facility] Pneumovax (PPSV23) Pneumovax (PPSV23) 2015-01-03 Completed [facility] 13:25:00 [facility] Pneumovax (PPSV23) Pneumovax (PPSV23) 2015-01-03 Completed [facility] 13:25:00 [facility] Pneumovax (PPSV23) Pneumovax (PPSV23) 2015-01-03 [facility]pleted [facility] 13:25:00 [facility] Pneumovax (PPSV23) Pneumovax (PPSV23) 2015-01-03 Completed [facility] 13:25:00 - [facility] Pneumovax (PPSV23) Pneumovax (PPSV23) 2015-01-03 Completed [facility] 13:25:00 - [facility] Pneumovax (PPSV23) Pneumovax (PPSV23) 2015-01-03 Completed [facility] 13:25:00 - [facility] Pneumovax (PPSV23) Pneumovax (PPSV23) 2015-01-03 Completed [facility] 13:25:00 - [facility] Pneumovax (PPSV23) Pneumovax (PPSV23) 2015-01-03 Completed [facility] 13:25:00 - [facility] Pneumovax (PPSV23) Pneumovax (PPSV23) 2015-01-03 Completed [facility] 13:25:00 - [facility] Pneumovax (PPSV23) Pneumovax (PPSV23) 2015-01-03 Completed [facility] 13:25:00 - [facility] Pneumovax (PPSV23) Pneumovax (PPSV23) 2015-01-03 Completed [facility] 13:25:00 - [facility] Pneumovax (PPSV23) Pneumovax (PPSV23) 2015-01-03 Completed [facility] 13:25:00 - [facility] Pneumovax (PPSV23) Pneumovax (PPSV23) 2015-01-03 Completed [facility] 13:25:00 - [facility] Zostavax Zostavax 2013-12-11 Completed [facility] 13:24:00 - [facility] Zostavax Zostavax 2013-12-11 Completed [facility] 13:24:00 - [facility] Zostavax Zostavax 2013-12-11 Completed [facility] 13:24:00 - [facility] Zostavax Zostavax 2013-12-11 Completed [facility] 13:24:00 - [facility] Zostavax Zostavax 2013-12-11 Completed [facility] 13:24:00 - [facility] Zostavax Zostavax 2013-12-11 Completed [facility] 13:24:00 - [facility] Zostavax Zostavax 2013-12-11 Completed [facility] 13:24:00 - [facility] Zostavax Zostavax 2013-12-11 Completed [facility] 13:24:00 - [facility] Zostavax Zostavax 2013-12-11 Completed [facility] 13:24:00 - [facility] Zostavax Zostavax 2013-12-11 Completed [facility] 13:24:00 - [facility] Zostavax Zostavax 2013-12-11 Completed [facility] 13:24:00 - [facility] Zostavax Zostavax 2013-12-11 Completed [facility] 13:24:00 - [facility] Zostavax Zostavax 2013-12-11 Completed [facility] 13:24:00 - [facility] Zostavax Zostavax 2013-12-11 Completed [facility] 13:24:00 - [facility] Vital Signs Vital Name Observation Time Observation Value Comments Source height 2022-02-12 10:20:00 63.5 [in_i] [facility] weight 2022-02-12 10:20:00 203 [lb_av] [facility] temperature 2022-02-12 10:20:00 97.0 [degF] [facility] bmi 2022-02-12 10:20:00 35.39 kg/m2 [facility] oximetry 2022-02-12 10:20:00 96 % [facility] respiratory rate 2022-02-12 10:20:00 17 /min Comm on [facility] - [facility] blood pressure 2022-02-12 10:20:00 136 mm[Hg] Common [facility] - systolic [facility] blood pressure 2022-02-12 10:20:00 80 mm[Hg] Common [facility] - diastolic [facility] Systolic blood 2021-11-20 15:00:00 133 mm[Hg] Univer jauny of pressure [facility] Diastolic blood 2021-11-20 15:00:00 76 mm[Hg] Unive rsity of pressure [facility] Heart rate 2021-11-20 15:00:00 75 /min Universi ty of [facility] Body temperature 2021-11-20 15:00:00 36.28 Elena Univ ersity of [facility] height 2021-11-13 13:20:00 63.5 [in_i] [facility] weight 2021-11-13 13:20:00 200 [lb_av] [facility] temperature 2021-11-13 13:20:00 97.2 [degF] [facility] bmi 2021-11-13 13:20:00 34.87 kg/m2 [facility] oximetry 2021-11-13 13:20:00 96 % [facility] respiratory rate 2021-11-13 13:20:00 16 /min Comm on [facility] blood pressure 2021-11-13 13:20:00 138 mm[Hg] Common [facility] - systolic [facility] blood pressure 2021-11-13 13:20:00 72 mm[Hg] Common [facility] - diastolic [facility] height 2021-08-10 09:40:00 63.5 [in_i] [facility] weight 2021-08-10 09:40:00 205.2 [lb_av] Common [facility] temperature 2021-08-10 09:40:00 98.1 [degF] [facility] bmi 2021-08-10 09:40:00 35.78 kg/m2 [facility] oximetry 2021-08-10 09:40:00 97 % [facility] respiratory rate 2021-08-10 09:40:00 18 /min Comm on [facility] blood pressure 2021-08-10 09:40:00 136 mm[Hg] Common [facility] - systolic [facility] blood pressure 2021-08-10 09:40:00 76 mm[Hg] [facility] - diastolic [facility] height 2021-06-07 13:20:00 63.5 [in_i] [facility] weight 2021-06-07 13:20:00 211.8 [lb_av] [facility] temperature 2021-06-07 13:20:00 98.0 [degF] [facility] bmi 2021-06-07 13:20:00 36.93 kg/m2 [facility] oximetry 2021-06-07 13:20:00 94 % [facility] blood pressure 2021-06-07 13:20:00 124 mm[Hg] Common [facility] - systolic [facility] blood pressure 2021-06-07 13:20:00 84 mm[Hg] Common [facility] - diastolic [facility] height 2021-02-09 10:00:00 63.5 [in_i] [facility] weight 2021-02-09 10:00:00 210 [lb_av] [facility] temperature 2021-02-09 10:00:00 97.3 [degF] [facility] bmi 2021-02-09 10:00:00 36.61 kg/m2 [facility] oximetry 2021-02-09 10:00:00 97 % [facility] respiratory rate 2021-02-09 10:00:00 16 /min Comm on [facility] - [facility] blood pressure 2021-02-09 10:00:00 124 mm[Hg] Common [facility] - systolic [facility] blood pressure 2021-02-09 10:00:00 71 mm[Hg] Common [facility] - diastolic [facility] height 2021-02-01 11:20:00 63.5 [in_i] [facility] weight 2021-02-01 11:20:00 206.0 [lb_av] [facility] temperature 2021-02-01 11:20:00 96.5 [degF] [facility] bmi 2021-02-01 11:20:00 35.91 kg/m2 [facility] oximetry 2021-02-01 11:20:00 96 % [facility] respiratory rate 2021-02-01 11:20:00 18 /min Comm on [facility] blood pressure 2021-02-01 11:20:00 110 mm[Hg] Common [facility] systolic [facility] blood pressure 2021-02-01 11:20:00 80 mm[Hg] [facility] diastolic [facility] height 2020-12-05 11:20:00 63.5 [in_i] [facility] weight 2020-12-05 11:20:00 215 [lb_av] [facility] bmi 2020-12-05 11:20:00 37.48 kg/m2 [facility] Procedures Procedure Date / Time Performed Performing Clinician Sourc e POCT GLUCOSE 2021-11-20 14:59:00 Julio Cesar Delcid [facility] ([facility] Medical Branch DISCLOSURE AND 2021-11-20 05:01:00 Doctor Unassigned, No [facility] CONSENT, MEDICAL AND Name [facility] SURGICAL PROCEDURES Encounters Start End Encounter Admission Attending Care Care Encounter Source Date/Time Date/Time Type Type Clinicians Facility Department ID 2022-02-08 Outpatient Mcmullen, STLMLC STLMLC [id number] Common 07:27:00 Sharri [id number] [facility] 2021-11-09 Outpatient Mcmullen, STLMLC STLMLC [id number] Common 10:22:00 Sharri [id number] [facility] 2021-08-08 Outpatient Mcmullen, STLMLC STLMLC [id number] Common 10:32:00 Sharri [id number] [facility] 2021-06-06 Outpatient Kurtis, STLMLC STLMLC [id number] Common 11:49:00 Sharri [facility] 2021-06-05 Outpatient Mcmullen, STLMLC STLMLC [id number] Common 10:30:01 Sharri [facility] 2021-03-29 Outpatient Mcmullen, STLMLC STLMLC [id number] Common 14:24:54 Sharri [id number] [facility] 2021-03-29 Outpatient Mcmullen, STLMLC STLMLC [id number] Common 14:23:28 Sharri 51264 [facility] 2021-03-29 Outpatient Mcmullen, STLMLC STLMLC [id number] Common 13:48:09 Sharri 99727 [facility] 2021-03-29 Outpatient Mcmullen, STLMLC STLMLC [id number] Common 13:47:01 Sharri [id number] [facility] 2021-03-29 Outpatient Mcmullen, STLMLC STLMLC [id number] Common 13:10:13 Sharri 99469 [facility] 2021-03-29 Outpatient Mcmullen, STLMLC STLMLC [id number] Common 13:08:48 Sharri [id number] [facility] 2021-03-29 Outpatient Mcmullen, STLMLC STLMLC [id number] Common 12:52:28 Sharri [id number] [facility] 2021-03-29 Outpatient Mcmullen, STLMLC STLMLC [id number] Common 12:07:10 Sharri [id number] [facility] 2021-03-29 Outpatient Mcmullen, STLMLC STLMLC [id number] Common 11:06:07 Sharri [id number] [facility] 2021-03-29 Outpatient Millender, STLMLC STLMLC [id number] Common 11:00:07 Shiela 25250 [facility] 2021-03-29 Outpatient Millender, STLMLC STLMLC [id number] Common 10:59:24 Sheila 87867 [facility] 2022-02-12 2022-02-12 OFFICE STLMLC STLMLC [id number] Co mmon 00:00:00 00:00:00 VISIT Jerry [facility] PT - CHI LEVEL 4 [facility] 2021-11-28 2021-11-28 (TEL) [facility] [id number] Co mmon 00:00:00 00:00:00 Spirit - CHI [facility] 2021-11-27 2021-11-27 [facility] [id number] Univers 00:00:00 00:00:00 Julio Cesar QUEZADA [id number] ity of [facility] [id number] [id number] [facility] 199 Branch 2021-11-20 2021-11-20 Outpatient R BHAVIN [facility] [id number] Univers 10:00:00 12:11:[address] [facility] 2021-11-20 2021-11-20 [facility] [id number] Univers 10:00:00 12:00:00 Visit Julio Cesar QUEZADA [id number] ity of [facility] [id number] [phone] [facility] [address] 2021-11-20 2021-11-20 Orders Doctor JOSEPH [id number] Univers 00:00:00 00:00:00 Only Unassigned, SILVER [id number] ity of [place] [facility] [id number] Anders as [phone] [facility] 009 Branch 2021-11-16 2021-11-16 Laboratory Only, Adc Test [facility] [id number] Univers 09:00:00 09:15:00 Only Julio Cesar Delcid [id number] ity of [place] [id number] [place] [facility] [phone] [facility] 353 Branch 2021-11-16 2021-11-16 Outpatient R BHAVIN [facility] [id number] Univers 09:00:00 09:00:[address] [facility] 2021-11-14 2021-11-14 (TEL) [facility] [id number] Co mmon 00:00:00 00:00:00 Spirit CHI [facility] 2021-11-14 2021-11-14 Telephone Bhavin [facility] [id number] Univers 00:00:00 00:00:00 Julio Cesar QUEZADA [id number] ity of [facility] [id number] [phone] [facility] [address] 2021-11-13 2021-11-13 SUB [facility]NUAL [facility] [id number] Common 00:00:00 00:00:00 MCR [facility] WELLNESS - CHI VISIT [facility] 2021-11-13 2021-11-13 (TEL) [facility] [id number] Co mmon 00:00:00 00:00:00 Spirit [facility] 2021-11-09 2021-11-09 [facility] [id number] Univers 13:30:00 14:23:10 Visit Julio Cesar QUEZADA [id number] ity of [facility] [id number] [phone] [facility] [address] 2021-11-09 2021-11-09 Outpatient R BHAVIN [facility] [id number] Univers 13:30:00 14:23:[address] [facility] 2021-11-09 2021-11-09 Orders Doctor JOSEPH [id number] Univers 00:00:00 00:00:00 Only Unassigned, SILVER [id number] [facility] [id number] Anders as [phone] [facility] 009 Branch 2021-08-10 2021-08-10 OFFICE [facility] [id number] Co mmon 00:00:00 00:00:00 VISIT EST Spir it PT LEVEL 3 - CHI [facility] 2021-07-16 2021-07-16 Emergency X NIXON [facility] ERT [id number] Univers 14:32:00 18:49:[address] [facility] 2021-07-16 2021-07-16 Emergency [facility] [id number] Univers 14:32:00 18:49:00 Marva ROBBINS [id number] i ty of [place] [id number] [facility] [id number] [facility] 084 Branch 2021-06-15 2021-06-15 (TEL) STLMLC STLMLC [id number] Co mmon 00:00:00 00:00:00 [facility] 2021-06-07 2021-06-07 OFFICE STLMLC STLMLC [id number] Co mmon 00:00:00 00:00:00 VISIT [facility] 4 [facility] 2021-05-25 2021-05-25 (TEL) STLMLC STLMLC [id number] Co mmon 00:00:00 00:00:00 [facility] 2021-05-22 2021-05-22 Emergency X [facility] ERT [id number] Univers 17:26:00 20:37:00 TREVER ity of [facility] 2021-05-22 2021-05-22 Emergency [facility] [id number] Univers 17:26:00 20:37:00 Trever ROBBINS [id number] i ty of [place] [id number] [facility] [id number] [facility] 084 [place] 2021-05-22 2021-05-22 Orders Doctor JOSEPH [id number] Univers 00:00:00 00:00:00 Only Unassigned, SILVER [id number] ity of [place] [facility] [id number] [place] [address] [id number] [facility] 009 Branch 2021-04-24 2021-04-24 (TEL) STLMLC STLMLC [id number] Co mmon 00:00:00 00:00:00 [facility] 2021-02-09 2021-02-09 OFFICE STLMLC STLMLC [id number] Co mmon 00:00:00 00:00:00 VISIT EST Spir it PT LEVEL 3 - [facility] 2021-02-01 2021-02-01 SUB ANNUAL STLMLC STLMLC [id number] Common 00:00:00 00:00:00 MCR [facility] WELLNESS - [facility] VISIT [facility] 2020-12-05 2020-12-05 OFFICE STLMLC STLMLC [id number] Co mmon 00:00:00 00:00:00 VISIT [facility] PT - [facility] LEVEL 4 [facility] 2020-11-28 2020-11-28 Outpatient STLMLC STLMLC [id number] Common 00:00:00 00:00:00 [facility] 2020-11-10 2020-11-10 Outpatient STLMLC STLMLC [id number] Common 00:00:00 00:00:00 [facility] 2020-11-09 2020-11-09 Outpatient STLMLC STLMLC [id number] Common 00:00:00 00:00:00 [facility] 2020-11-02 2020-11-02 Outpatient STLMLC STLMLC [id number] Common 00:00:00 00:00:00 [facility] 2020-10-27 2020-10-27 Outpatient STLMLC STLMLC [id number] Common 00:00:00 00:00:00 [facility] 2020-10-16 2020-10-16 Outpatient STLMLC STLMLC [id number] Common 00:00:00 00:00:00 [facility] 2020-10-11 2020-10-11 Outpatient STLMLC STLMLC [id number] Common 00:00:00 00:00:00 [facility] 2020-09-23 2020-09-23 Outpatient STLMLC STLMLC [id number] Common 00:00:00 00:00:00 [facility] 2020-08-30 2020-08-30 Outpatient STLMLC STLMLC [id number] Common 00:00:00 00:00:00 [facility] 2020-08-11 2020-08-11 Outpatient STLMLC STLMLC [id number] Common 00:00:00 00:00:00 [facility] 2020-08-02 2020-08-02 Outpatient STLMLC STLMLC [id number] Common 00:00:00 00:00:00 [facility] 2020-07-20 2020-07-20 Outpatient STLMLC STLMLC [id number] Common 00:00:00 00:00:00 [facility] 2020-07-20 2020-07-20 Outpatient STLMLC STLMLC [id number] Common 00:00:00 00:00:00 [facility] 2020-07-12 2020-07-12 Outpatient STLMLC STLMLC [id number] Common 00:00:00 00:00:00 [facility] 2020-07-04 2020-07-04 Outpatient STLMLC STLMLC [id number] Common 00:00:00 00:00:00 [facility] 2020-06-17 2020-06-17 Outpatient STLMLC STLMLC [id number] Common 00:00:00 00:00:00 [facility] 2020-06-16 2020-06-16 Outpatient STLMLC STLMLC [id number] Common 00:00:00 00:00:00 [facility] 2020-04-27 2020-04-27 Outpatient STLMLC STLMLC [id number] Common 00:00:00 00:00:00 [facility] 2020-02-04 2020-02-04 Outpatient STLMLC STLMLC [id number] Common 00:00:00 00:00:00 [facility] 2020-01-26 2020-01-26 Outpatient STLMLC STLMLC [id number] Common 00:00:00 00:00:00 [facility] 2020-01-26 2020-01-26 Outpatient STLMLC STLMLC [id number] Common 00:00:00 00:00:00 [facility] 2019-10-12 2019-10-12 [facility] [id number] Common 08:06:00 08:06:[address] [facility] 2019-10-05 2019-10-05 [facility] [id number] Common 14:20:00 14:20:[address] [facility] 2019-09-14 2019-09-14 [facility] [id number] Common 09:43:00 09:43:[address] [facility] 2019-07-28 2019-07-28 [facility] [id number] Common 16:10:00 16:10:[address] [facility] 2019-07-28 2019-07-28 [facility] [id number] Common 10:18:00 10:18:[address] [facility] 2019-04-15 2019-04-15 [facility] [id number] Common 15:42:00 15:42:[address] [facility] 2019-04-09 2019-04-09 [facility] [id number] Common 13:08:00 13:08:[address] [facility] 2019-03-16 2019-03-16 [facility] [id number] Common 11:40:00 11:40:[address] [facility] 2019-01-22 2019-01-22 [facility] [id number] Common 16:11:00 16:11:[address] [facility] 2018-12-11 2018-12-11 [facility] [id number] Common 13:00:00 13:00:[address] [facility] 2018-09-09 2018-09-09 [facility] [id number] Common 13:00:00 13:00:[address] [facility] 2018-07-15 2018-07-15 [facility] [id number] Common 14:44:00 14:44:[address] [facility] 2018-06-11 2018-06-11 [facility] [id number] Common 16:22:00 16:22:[address] [facility] 2018-06-03 2018-06-03 [facility] [id number] Common 13:49:00 13:49:[address] [facility] 2018-05-21 2018-05-21 [facility] [id number] Common 13:00:00 13:00:[address] [facility] 2018-03-18 2018-03-18 [facility] [id number] Common 09:57:00 09:57:[address] [facility] 2018-02-19 2018-02-19 [facility] [id number] Common 13:00:00 13:00:[address] [facility] 2017-12-04 2017-12-04 [facility] [id number] Common 14:17:00 14:17:[address] [facility] 2017-11-27 2017-11-27 [facility] [id number] Common 13:00:00 13:00:[address] [facility] [facility] 2017-09-25 2017-09-25 [id number] Common 16:32:00 16:32:[address] [facility] 2017-09-09 2017-09-09 [id number] Common 13:00:00 13:00:[address] [facility] Results Test Description Test Time Test Comments Results Result Comments Source HEMOGLOBIN A1C 2022-02-12 00:00:00 Test Item Value Reference Range Interpretation Comme nts A1C (test code = 4548-4) 6.3 POCT GLUCOSE (AUTOMATED)2021-11-20 15:01:41 Test Item Value Reference Range Interpretation Comments POCT GLU (test code = 1972636852) 166 mg/dL 70-110 H Lab Interpretation (test code = Abnormal 67554-2) [id number] 00:00:00 Test Item Value Reference Range Interpretation Comments A1C (test code = 4548-4) 6.9 HEMOGLOBIN [id number] 00:00:00 Test Item Value Reference Range Interpretation Comments A1C (test code = 4548-4) 8.1 HEMOGLOBIN [id number] 00:00:00 Test Item Value Reference Range Interpretation Comments A1C (test code = 4548-4) 6.7
[2022-03-29] MEDS ORDERED: MORPHINE 4 MG/ML SYR ONE (19:07)
--- NOTE | 2022-03-29 19:45 | RAD REPORT ---
EXAM DESCRIPTION: RAD - Knee Right 3 View - 03/29/2022 7:09 pm CLINICAL HISTORY: Right knee pain FINDINGS: Cortical irregularity involves the lateral tibial plateau. This probably is related to art hritis. If the patient has clinical symptoms to suggest a fracture then a CT could be obtained for fu rther evaluation. There appears to be a small to moderate joint effusion. No dislocation
--- NOTE | 2022-03-29 21:44 | RAD REPORT ---
EXAM DESCRIPTION: Sagrario Mercer Cont03/29/2022 9:11 pm CLINICAL HISTORY: Right knee pain COMPARISON: March 29, 2022 x-ray TECHNIQUE: Computed axial tomography of the right knee was obtained with coronal and sagittal recons truction. All CT scans are performed using dose optimization technique as appropriate and may include automated exposure control or mA/KV adjustment according to patient size. FINDINGS: Moderate joint effusion. No dislocation No fracture seen. Moderate to marked osteoarthritis medial compartment consisting of joint space narrowing, subchondral sclerosis, osteophytes and vacuum phenomena. Mild posterior subluxation tibia on the femur. Osteoarthritis also involves the lateral and patellofemoral compartments. 14 millimeter osteophyte partially detached from the anterior aspect of the lateral tibial plateau IMPRESSION: Osteoarthritis Moderate joint effusion
--- NOTE | 2022-03-29 22:06 | ER ---
Nurse's Notes [facility] Name: Kenia Wynn Age: 71 yrs Sex: Female : 1950 Arrival Date: 03/29/2022 Time: 18:08 Bed 16 Private MD: Diagnosis: Unilateral primary osteoarthritis, right knee;Effusion, right knee Presentation: 03/29 18:25 Chief complaint: Patient states: "I was trying to get into bed last night and my leg aa5 wouldn't straighten up and ever since then my right knee has been hurting". Coronavirus screen: At this time, the client does not indicate any symptoms associated with coronavirus-19. Ebola Screen: Patient denies travel to an Ebola-affected area in the 21 days before illness onset. Initial Sepsis Screen: Does the patient meet any 2 criteria? No. Patient's initial sepsis screen is negative. Does the patient have a suspected source of infection? No. Patient's initial sepsis screen is negative. Risk Assessment: Do you want to hurt yourself or someone else? Patient reports no desire to harm self or others. Onset of symptoms was March 2022. 18:25 Method Of Arrival: Wheelchair aa5 18:25 Acuity: ALEXX 4 aa5 Historical: - Allergies: 18:26 No Known Allergies; aa5 - PMHx: 18:26 COPD; Diabetes - IDDM; High Cholesterol; Hypertension; shingles; aa5 - Immunization history:: Adult Immunizations unknown. - Social history:: Smoking status: Patient reports the use of cigarette tobacco products, smokes one pack cigarettes per day. Screenin:14 [facility] ED Fall Risk Assessment (Adult) History of falling in the last 3 months, aa9 including since admission Yes- single mechanical fall (1 pt) Confusion or Disorientation No (0 pts) Intoxicated or Sedated No (0 pts) Impaired Gait Yes (1 pt) Mobility Assist Device Used Yes (1 pt) Altered Elimination No (0 pt) Score/Fall Risk Level 3 or more points = High Risk Oriented to surroundings, Maintained a safe environment. Abuse screen: Denies threats or abuse. Denies injuries from another. Nutritional screening: No deficits noted. Tuberculosis screening: No symptoms or risk factors identified. Assessment: 19:13 General: Appears in no apparent distress. comfortable, Behavior is calm, cooperative, aa9 appropriate for age. Pain: Complains of pain in right upper thigh, right quadriceps and right knee Aggravated by increased activity, repositioning. Neuro: Level of Consciousness is awake, alert, obeys commands, Oriented to person, place, time, situation. Respiratory: Airway is patent Trachea midline Respiratory effort is even, unlabored. : No signs and/or symptoms were reported regarding the genitourinary system. Musculoskeletal: Swelling present in right knee. 21:31 Reassessment: Patient appears in no apparent distress at this time. Patient is alert, aa9 oriented x 3, equal unlabored respirations, skin warm/dry/pink. Patient states feeling better. 22:12 Reassessment: Patient appears in no apparent distress at this time. Patient and/or aa9 family updated on plan of care and expected duration. Pain level reassessed. Patient is alert, oriented x 3, equal unlabored respirations, skin warm/dry/pink. Patient denies pain at this time. Patient states feeling better. Vital Signs: 18:25 BP 124 / 64; Pulse 79; Resp 16 S; Temp 97.4(TE); Pulse Ox 97% on R/A; Weight 90.72 kg aa5 (R); Height 5 ft. 3 in. (160.02 cm) (R); 22:11 BP 129 / 72; Pulse 72; Resp 19 S; Temp 97.8(O); Pulse Ox 98% on R/A; aa9 18:25 Body Mass Index 35.43 (90.72 kg, 160.02 cm) aa5 ED Course: 18:08 Patient arrived in ED. as 18:12 Rudolph Reece NP is PHCP. pm1 18:12 Mike Alexander MD is Attending Physician. pm1 18:25 Arm band placed on. aa5 18:26 Triage completed. aa5 18:47 Maggie Forbes, CHARLIE is Primary Nurse. kr3 19:11 Knee Right 3 View XRAY In Process Unspecified. EDMS 20:12 Warm blanket given. aa9 20:12 Patient has correct armband on for positive identification. Bed in low position. Call aa9 light in reach. Side rails up X2. Adult w/ patient. 21:13 Knee Right Wo Cont In Process Unspecified. EDMS 22:04 Juwan Davis MD is Referral Physician. pm1 22:11 No provider procedures requiring assistance completed. Patient did not have IV access aa9 during this emergency room visit. Administered Medications: 19:13 Drug: morphine 4 mg Route: IM; Site: left deltoid; aa9 Medication: 19:25 VIS not applicable for this client. aa9 Outcome: 22:04 Discharge ordered by . pm1 22:11 Discharged to home with walker aa9 22:11 Condition: stable 22:11 Discharge instructions given to patient, Instructed on discharge instructions, follow up and referral plans. Demonstrated understanding of instructions, follow-up care. 22:12 Patient left the ED. aa9 Signatures: Dispatcher [employer] EDMS Zayda Enrique Audri, RN RN aa5 Rudolph Reece NP CUTTER AND PRESSER pm1 Pascale Taylor RN RN aa9 Maggie Forbes RN RN kr3
--- NOTE | 2022-03-29 22:06 | EDPHYS ---
Physician Documentation [facility] Name: Kenia Wynn Age: 71 yrs Sex: Female : 1950 Arrival Date: 03/29/2022 Time: 18:08 Bed 16 Private MD: ED Physician Mike Alexander HPI: 03/29 18:37 This 71 yrs old Female presents to ER via Wheelchair with complaints of Knee Pain - pm1 right. 18:37 The patient presents with pain. The complaints affect the right knee. Context: The pm1 problem was sustained at home, resulted from an unknown cause, the patient is able to ambulate, with moderate difficulty. Onset: The symptoms/episode began/occurred Chronic knee pain for at least 5 years, but with acute on chronic pain since last night. Modifying factors: The symptoms are alleviated by nothing. the symptoms are aggravated by Extending leg. Associated signs and symptoms: The patient has no apparent associated signs or symptoms, Pertinent negatives numbness, tingling, weakness. Treatment prior to arrival includes: prescription medications, hydrocodone. Severity of symptoms: in the emergency department the symptoms are actually worse. The patient has experienced similar episodes in the past, chronically. The patient has not recently seen a physician, Patient has seen Dr. Davis in the past for her right knee pain. Patient had appointment today but canceled. Patient has been informed by Dr. Davis she will need a knee replacement in the future. Patient denies trauma. Patient reports pain present with getting into bed last night. Historical: - Allergies: 18:26 No Known Allergies; aa5 - PMHx: 18:26 COPD; Diabetes - IDDM; High Cholesterol; Hypertension; shingles; aa5 - Immunization history:: Adult Immunizations unknown. - Social history:: Smoking status: Patient reports the use of cigarette tobacco products, smokes one pack cigarettes per day. ROS: 18:37 Constitutional: Negative for fever, chills, and weight loss, Cardiovascular: Negative pm1 for chest pain, palpitations, and edema, Respiratory: Negative for shortness of breath, cough, wheezing, and pleuritic chest pain, Abdomen/GI: Negative for abdominal pain, nausea, vomiting, diarrhea, and constipation. 18:37 Skin: Negative for injury, rash, and discoloration, Neuro: Negative for headache, weakness, numbness, tingling, and seizure. 18:37 MS/extremity: Positive for pain, of the right knee, Negative for decreased range of motion, deformity. 18:37 All other systems are negative. Exam: 18:37 Constitutional: This is a well developed, well nourished patient who is awake, alert, pm1 and in no acute distress. Head/Face: Normocephalic, atraumatic. 18:37 Skin: Warm, dry with normal turgor. Normal color with no rashes, no lesions, and no evidence of cellulitis. 18:37 Eyes: Exam is negative for acute changes, Conjunctiva: no acute changes, no injection. 18:37 ENT: Exam is negative for acute changes, Mouth: no acute changes, Lips: normal, moist, Oral mucosa: normal, pink and intact, moist. 18:37 Cardiovascular: Exam negative for acute changes, Rate: normal, Rhythm: regular, Pulses: no pulse deficits are appreciated. 18:37 Respiratory: Exam negative for acute changes, respiratory distress, shortness of breath. 18:37 Musculoskeletal/extremity: Extremities: grossly normal except: noted in the right knee: tenderness, Mild swelling to lower lateral aspect of right knee, There is no evidence of decreased ROM, deformity. 18:37 Neuro: Exam negative for acute changes, Orientation: is normal, Mentation: is normal, Motor: is normal, moves all fours. Vital Signs: 18:25 BP 124 / 64; Pulse 79; Resp 16 S; Temp 97.4(TE); Pulse Ox 97% on R/A; Weight 90.72 kg aa5 (R); Height 5 ft. 3 in. (160.02 cm) (R); 22:11 BP 129 / 72; Pulse 72; Resp 19 S; Temp 97.8(O); Pulse Ox 98% on R/A; aa9 18:25 Body Mass Index 35.43 (90.72 kg, 160.02 cm) aa5 MDM: 18:28 Patient medically screened. pm1 22:02 Data reviewed: vital signs. pm1 22:03 Counseling: I had a detailed discussion with the patient and/or guardian regarding: the pm1 historical points, exam findings, and any diagnostic results supporting the discharge/admit diagnosis, radiology results, the need for outpatient follow up, a orthopedic surgeon, to return to the emergency department if symptoms worsen or persist or if there are any questions or concerns that arise at home. 22:03 Differential diagnosis: dislocation, contusion, Arthritis, fracture. pm1 03/29 18:27 Order name: Knee Right 3 View XRAY; Complete Time: 19:50 aa5 03/29 18:37 Order name: Knee Immobilizer; Complete Time: 19:25 pm1 03/29 20:55 Order name: Knee Right Wo Cont; Complete Time: 21:46 EDMS 03/29 22:03 Order name: Misc. Order: Walker; Complete Time: 22:10 pm1 Administered Medications: 19:13 Drug: morphine 4 mg Route: IM; Site: left deltoid; aa9 Disposition Summary: 03/29/22 22:04 Discharge Ordered Location: Home pm1 Problem: new pm1 Symptoms: have improved pm1 Condition: Stable pm1 Diagnosis - Unilateral primary osteoarthritis, right knee pm1 - Effusion, right knee pm1 Followup: pm1 - With: Emergency Department - When: As needed - Reason: Worsening of condition Followup: pm1 - With: Juwan Davis MD - When: 2 - 3 days - Reason: Recheck today's complaints, Continuance of care, Re-evaluation by your physician Discharge Instructions: - Discharge Summary Sheet pm1 - Knee Effusion pm1 - How to Use a Knee Immobilizer pm1 - Osteoarthritis pm1 - How to Use a Walker pm1 Forms: - Medication Reconciliation Form pm1 - Thank You Letter pm1 - Antibiotic Education pm1 - Prescription Opioid Use pm1 Signatures: Dispatcher [employer] EDMS Katia Rashid RN RN aa5 Rudolph Reece NP CHEMISTRY TUTOR pm1 Pascale Taylor RN RN aa9 Corrections: (The following items were deleted from the chart) :55 20:17 CT RIGHT KNEE WO CONTRAST ordered. EDMN EDMS
[2022-03-30 00:31] VITALS: BP 129/72; TEMP 97.8; O2SAT 98
== END 2022-03-29 22:12 | disposition home or self-care (01) ==
LOC: ER 17:59
DX: M17.11 Unilateral primary osteoarthritis, right knee (principal); M25.461 Effusion, right knee; I10 Essential (primary) hypertension; F17.210 Nicotine dependence, cigarettes, uncomplicated
CPT/HCPCS: 73700; 96372; 99283

== ENCOUNTER 2023-01-02 08:30 | Observation (INO) | payer OTHER ==
[2022-12-28 11:27] LABS: Absolute Lymphocytes (CBC) 3.4 K/uL (0.7-4.9); Hematocrit 47.9 % (36.0-45.0); Lymphocytes % 31.1 % (15.3-44.8); MCV 94.9 fL (80-100); MPV 9.5 fL (7.6-11.3); Platelets 317 thou/uL (152-406); RBC Red Blood Cell Count 5.05 M/uL (3.86-4.86)
[2022-12-28 11:31] LABS: Protime INR 0.88
[2022-12-28 11:46] LABS: Potassium 3.8 mEq/L (3.5-5.1)
--- NOTE | 2022-12-28 15:41 | EKG ---
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
[2023-01-02] MEDS ORDERED: CEFAZOLIN SODIUM 2 GM/VIAL ONE (09:04)
[2023-01-02] MEDS ORDERED: NA CHLORIDE 0.9% 1,000 ML ONE (09:05)
[2023-01-02] MEDS ORDERED: LIDOCAINE 1% MPF 5 ML VIAL ONE (10:00)
[2023-01-02] MEDS ORDERED: dexAMETHasone 10 MG/ML VIAL ONE (10:00)
[2023-01-02] MEDS ORDERED: BUPIVACAINE 0.25% PF 30 ML VIAL ONE (10:01)
[2023-01-02] MEDS ORDERED: FENTANYL CITR 100 MCG/2 ML ONE (10:01)
[2023-01-02] MEDS ORDERED: EPINEPHRINE/PF 1 MG/ML AMP ONE (10:01)
[2023-01-02] MEDS ORDERED: MIDAZOLAM HCL 2 MG/2 ML INJ ONE (10:01)
[2023-01-02] MEDS ORDERED: CELECOXIB 100 MG CAPSULE ONE (10:02)
[2023-01-02] MEDS ORDERED: DEXMEDETOMIDINE HCL 200 MCG/2 ML VIAL ONE (10:02)
[2023-01-02] MEDS ORDERED: GABAPENTIN 100 MG CAP ONE (10:02)
[2023-01-02] MEDS ORDERED: MAGNESIUM SULFATE 1 gm IVPB 1 GM/100 ML BAG IV ONE (10:02)
[2023-01-02] MEDS ORDERED: Oxycodone HCl/Acetaminophen 5/325 MG TAB ONE (10:03)
[2023-01-02] MEDS ORDERED: ACETAMINOPHEN 500 MG TAB ONE (10:03)
[2023-01-02] MEDS ORDERED: TRANEXAMIC ACID 1,000 MG/10 ML VIAL IV ONE (11:16)
[2023-01-02] MEDS ORDERED: LIDOCAINE 2% MPF 5 ML VIAL ONE ×2 (11:23→12:14)
[2023-01-02] MEDS ORDERED: ONDANSETRON 4 MG/2 ML VIAL ONE (11:23)
[2023-01-02] MEDS ORDERED: KETOROLAC 30 MG/ML INJ ONE (11:23)
[2023-01-02] MEDS ORDERED: propofoL 200 MG/20 ML VIAL IV ONE (11:23)
[2023-01-02] MEDS ORDERED: KETAMINE HCL IN 0.9 % NACL 50 MG/5 ML SYRINGE IV ONE (12:14)
[2023-01-02] MEDS ORDERED: NS 0.9% VIAL 10 ML ONE (13:04)
[2023-01-02] MEDS ORDERED: HOME MED 1 EA UNK (Budesonide/Formoterol Fumarate [Symbicort 160-4.5 Mcg Inhaler] 10.2 GM IH PRN (13:52)
--- NOTE | 2023-01-02 13:52 | P.BOP ---
Preoperative diagnosis: right knee osteoarthritis Postoperative diagnosis: same Primary procedure: right total knee arthroplasty Sprayer Hand: NONE,NONE Estimated blood loss: 60 cc Specimen: right knee bone remnants Findings: see dictation Anesthesia: General Complications: None Implants: [employer] Susy Persona 8 CR femur, E tibia, 32 patella, 10 MC patella Fluids & blood products: per anesthesia record; TT: 70 mins @ 300 mmHg Transferred to: Recovery Room Condition: Good
[2023-01-02] MEDS ORDERED: ACETAMINOPHEN 325 MG TABLET PO PRN (13:53)
[2023-01-02] MEDS ORDERED: ONDANSETRON 4 MG/2 ML VIAL IV PRN (13:53)
[2023-01-02] MEDS ORDERED: DOCUSATE NA 100 MG CAP PO PRN (13:53)
[2023-01-02] MEDS ORDERED: TRAMADOL HCL 50 MG TAB PO PRN (13:57)
[2023-01-02] MEDS ORDERED: HOME MED 1 EA UNK (Gabapentin [Gabapentin] 600 MG Tablet) PO SCH (14:00)
--- OUTSIDE RECORDS SUMMARY | 2023-01-02 14:55 | XMS REPORT | Continuity of Care Document ---
:1950 Author Organization [facility] t Address [address] [place] [address] Care Team Providers Name Role Phone SHARRI WILLAMS Primary Care Physician Unavailable Sharri Willams Attending Clinician Unavailable Sheila Langston Attending Clinician Unavailable Julio Cesar Delcid DDS Attending Clinician JULIO CESAR DELCID Attending Clinician Unavailable Doctor Unassigned, [place] Attending Clinician Unavailable Only, Adc Test Attending Clinician Unavailable MARVA ALICEA Attending Clinician Unavailable Marva Baker Attending Clinician TREVER PITTS Attending Clinician Unavailable Trever Chacko Attending Clinician PHUONG ZENG Admitting Clinician Unavailable TREVER PITTS Admitting Clinician Unavailable Payers Payer Name Policy Type Policy Number Effective Date Expiration Date S wilian [facility] Dual 53 [id number] 2021 [facility] Complete Choice 00:00:00 - [facility] al D-SNP) [facility] Dual 53 [id number] 2020 [facility] Complete MCR 00:00:00 - [facility] MEDICARE MB [id number] [facility] NOVITAS - [facility] MEDICAID [id number] 2018 [facility] 00:00:00 - [facility] MEDICARE MB [id number] [facility] NOVITAS - [facility] Problems Condition Condition Condition Status Onset Resolution Last Treating Co mments Source Name Details Category Date Date Treatment Clinician Date [id number] Opioid Problem Common dependence Spirit , - CHI uncomplica [facility] [id number] Uncontroll Problem Co mmon ed type 2 Spirit diabetes - CHI mellitus St with [facility] hyperglyce [facility] Cigarette Cigarette Problem Com mon smoker smoker Spirit - [facility] [id number] Acquired Problem Comm on hypothyroi Spirit dism - [facility] [id number] Nicotine Problem Commo n dependence Spirit , - CHI cigarettes [facility] uncomplica [facility] [id number] Primary Problem Comm on osteoarthr Spirit itis of - CHI right knee [facility] Tobacco Cigarette Problem Commo n user nicotine Spirit dependence - CHI without St complicati [facility] [id number] Encounter Problem Com mon for Spirit immunizati - CHI on [facility] [id number] 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 [id number] (current) Spirit use [facility] [id number] [place] [id number] induced Spirit constipati - CHI on [facility] [id number] Need for Problem Com mon pneumococc Spirit al vaccine - [facility] Needs Need for Problem Common influenza influenza Spir it immunizati vaccinatio - CHI on n [facility] [id number] Acute Problem Common cough Spirit - [facility] [id number] Pain of Problem Commo n left Spirit scapula - [facility] [id number] Pulmonary Problem Comm on emphysema, Spirit unspecifie - CHI d [facility] Chronic Chronic Problem Common pain pain Spirit syndrome associated - CH I with significan [facility] psychosoci Center al dysfunctio n [id number] Diabetic Problem Commo n polyneurop Spirit athy - CHI associated [facility] with type [facility] 2 diabetes Medica l mellitus Center Generalize Generalize Problem C ommon d anxiety d anxiety Spir it disorder disorder - [facility] Hypothyroi Hypothyroi Problem C ommon dism dism Spirit - [facility] Incontinen Incontinen Problem C ommon ce of ce of Spirit urine urine - [facility] [id number] buttermaker Problem Com mon (current) Spirit use of - CHI insulin [facility] Counseling Tobacco Problem Comm on about abuse Spirit tobacco counseling - CHI use [facility] Obstructiv Obstructiv Problem C ommon e sleep e sleep Spirit apnea apnea - [facility] Hypertensi Hypertensi Problem C ommon on on Spirit - [facility] [id number] Current Problem Common moderate Spirit episode of - CHI major [facility] depressive [facility] disorder Medical without Center prior episode [id number] Arthritis Problem Co mmon [id number] of knee, Spirit right [facility] [id number] Major Problem Common depressive Spirit disorder - CHI [facility] with [facility] episode, Medical in full Center remission No known No known Disease Unive rs active active ity of problems problems [place] [facility] [place] Allergies, Adverse Reactions, Alerts Allergy Allergy Status Severity Reaction(s) Onset Inactive Treating Comm ents Source Name Type Date Date Clinician NO KNOWN Drug Active Univers ALLERGIE Class ity of S [place] [facility] Social History Social Habit Start Date Stop Date Quantity Comments Source History of Current Smoker Common Spi rit - Tobacco Use [facility] Sex Assigned At Common Sp anastasiia - [facility] Exposure to 2021-11-10 2021-11-20 Not sure University SARS-CoV-2 00:00:00 09:49:00 [place] [facility] (event) Branch Smoking Status Start Date Stop Date Source Current Smoker 2022-12-28 00:00:00 [facility] t - [facility] Medical Ce nter Tobacco smoking consumption Univ [facility] unknown Branch Medications Ordered Filled Start Stop [...] HCl 75 MG 00:00: 00 buPROPion buPROPion 2-1 No 1{table BID buPROPion HCl 75 MG HCl 75 MG 0-03 t} HCl 75 MG 00:00: 00 ibuprofen 2022-0 Yes [id number] 600mg Take 1 U nivers 600 mg 9-19 tablet by ity of tablet 00:00: mouth [place] 00 every 6 Medical (six) Branch hours as needed for Pain (scale 4-6). amoxicillin 2022-0 Yes [id number] 500mg Take 1 Univers 500 mg 9-19 capsule by ity of capsule 00:00: mouth in [place] 00 the Medical morning Branch and 1 capsule at noon and 1 capsule in the evening. chlorhexidi 2022-0 Yes [id number] 15mL Swish and Univers ne 0.12 % 9-19 spit out ity of mouthwash 00:00: 15 [place] the [place] morning Branch and 15 mL in the evening. ibuprofen 2022-0 Yes [id number] 600mg Take 1 U nivers 600 mg 9-19 tablet by ity of tablet 00:00: mouth [place] 00 every 6 Medical (six) Branch hours as needed for Pain (scale 4-6). amoxicillin 2022-0 Yes [id number] 500mg Take 1 Univers 500 mg 9-19 capsule by ity of capsule 00:00: mouth in [place] 00 the Medical morning Branch and 1 capsule at noon and 1 capsule in the evening. chlorhexidi 2022-0 Yes [id number] 15mL Swish and Univers ne 0.12 % 9-19 spit out ity of mouthwash 00:00: [place] the [place] morning Branch and 15 mL in the evening. ibuprofen 2022-0 Yes [id number] 600mg Take 1 U nivers 600 mg 9-19 tablet by ity of tablet 00:00: mouth [place] 00 every 6 Medical (six) Branch hours as needed for Pain (scale 4-6). amoxicillin 2022-0 Yes [id number] 500mg Take 1 Univers 500 mg 9-19 capsule by ity of capsule 00:00: mouth in [place] 00 the Medical morning Branch and 1 capsule at noon and 1 capsule in the evening. chlorhexidi 2022-0 Yes [id number] 15mL Swish and Univers ne 0.12 % 9-19 spit out ity of mouthwash 00:00: 15 [place] the Medical morning Branch and 15 mL in the evening. INSULIN Yes inject Univers GLARGINE,HU 11-09 under the ity of MMarquisREC.ANLOG 13:39: skin. [place] ([place]) Medical Branch METFORMIN Yes Take by Unive rs HCL 11-09 mouth. ity of (METFORMIN 13:39: [place] ORAL) Medical Branch HYDROcodone Yes 1{tbl} Take 1 Tab Univers -acetaminop 11-09 by mouth ity of hen 10-325 13:39: [...] Take 81 mg U nivers mg chewable 11-09 by mouth ity of tablet 13:39: daily. [address] Branch DULoxetine Yes 60mg Take 60 mg U nivers (CYMBALTA) 08 by mouth ity o f 60 mg 13:39: daily. [place] capsule Medical Branch lovastatin Yes 10mg Take 10 mg U nivers (MEVACOR) 08 by mouth ity of 10 mg 13:39: at [place] tablet 29 bedtime. Medical Branch losartan Yes 50mg Take 50 mg Uni vers (COZAAR) 50 08 by mouth ity of mg tablet 13:39: daily. [address] Branch paroxetine Yes 20mg Take 20 mg U nivers (PAXIL) 20 08 by mouth ity o f mg tablet 13:39: daily. [place] [address] Medical Branch Levothyroxi Yes Take by Uni vers ne 08 mouth. ity of (TIROSINT) 13:39: [place] 150 mcg Medical capsule Branch INSULIN Yes inject Univers GLARGINE,HU 11-09 under the ity of .REC.ANLOG 13:39: skin. [place] ([place]) Medical Branch METFORMIN Yes Take by Unive rs HCL 9-08 mouth. ity of (METFORMIN 13:39: [place] ORAL) [address] [place] [address] Branch HYDROcodone Yes 1{tbl} Take 1 Tab [...] Take 81 mg U nivers mg chewable 08 by mouth ity of tablet 13:39: daily. [address] Branch DULoxetine Yes 60mg Take 60 mg U nivers (CYMBALTA) 9-08 by mouth ity o f 60 mg 13:39: daily. [address] Branch lovastatin Yes 10mg Take 10 mg U nivers (MEVACOR) 08 by mouth ity of 10 mg 13:39: at [place] tablet 29 bedtime. Medical Branch losartan Yes 50mg Take 50 mg Uni vers (COZAAR) 50 08 by mouth ity of mg tablet 13:39: daily. [address] Branch paroxetine Yes 20mg Take 20 mg U nivers (PAXIL) 20 08 by mouth ity o f mg tablet 13:39: daily. [address] Branch Levothyroxi Yes Take by Uni vers ne - mouth. ity of (TIROSINT) 13:39: [place] 150 mcg Medical capsule Branch INSULIN Yes inject Univers GLARGINE,HU 11-09 under the ity of .[facility].ANLOG 13:39: skin. [place] ([place]) [address] [place] [address] Branch METFORMIN Yes Take by Unive rs HCL 9-08 mouth. ity of (METFORMIN 13:39: [place] ORAL) 29 Medical Branch HYDROcodone Yes 1{tbl} Take 1 Tab [...] Take 81 mg U nivers mg chewable 908 by mouth ity of tablet 13:39: daily. [address] Branch DULoxetine Yes 60mg Take 60 mg U nivers (CYMBALTA) 908 by mouth ity o f 60 mg 13:39: daily. [place] [address] Medical Branch lovastatin Yes 10mg Take 10 mg U nivers (MEVACOR) 908 by mouth ity of 10 mg 13:39: at [place] tablet 29 bedtime. Medical Branch losartan Yes 50mg Take 50 mg Uni vers (COZAAR) 50 908 by mouth ity of mg tablet 13:39: daily. [address] Branch paroxetine Yes 20mg Take 20 mg U nivers (PAXIL) 20 908 by mouth ity o f mg tablet 13:39: daily. [address] Branch Levothyroxi Yes Take by Uni vers ne 9-08 mouth. ity of (TIROSINT) 13:39: [place] 150 mcg Medical capsule Branch amoxicillin Yes [id number] 1{tbl} Take 1 Univers -clavulanat 5-15 tablet by ity of e 875-125 00:00: mouth [place] mg per 00 every 12 Medical tablet (twelve) Branch hours. amoxicillin Yes [id number] 1{tbl} Take 1 Univers -clavulanat 5-15 tablet by ity of e 875-125 00:00: mouth [place] mg per 00 every 12 Medical tablet (twelve) Branch hours. amoxicillin 2021-0 Yes [id number] 1{tbl} Take 1 Univers -clavulanat 5-15 tablet by ity of e [id number] 00:00: mouth [place] mg per 00 every 12 Medical tablet (twelve) Branch hours. Bupivicaine Bupivicaine 2020-0 No 2.5mg Common [place] 11-10 Spirit 00:00: - CHI 00 [facility] Kenalog Kenalog 2020-0 No 40mg Common (Triamcinol (Triamcinol 9- S pirit one) one) 00:00: - CHI 00 [facility] Bupivicaine Bupivicaine 2020-0 No Common [place] 11-10 Spirit 00:00: - CHI 00 [facility] Kenalog Kenalog 2020-0 No 40mg Common (Triamcinol (Triamcinol 9- S pirit one) one) 00:00: - CHI 00 [facility] Bupivicaine Bupivicaine 2020-0 No Common [place] 11-10 Spirit 00:00: - CHI 00 [facility] Kenalog Kenalog 2020-0 No 40mg Common (Triamcinol (Triamcinol 9- S pirit one) one) 00:00: - CHI 00 [facility] Bupivicaine Bupivicaine 2020-0 No 2.5mg Common [place] 11-10 Spirit 00:00: - CHI 00 [facility] Kenalog Kenalog 2020-0 No 40mg Common (Triamcinol (Triamcinol 9- S pirit one) one) 00:00: - CHI 00 [facility] Bupivicaine Bupivicaine 2020-0 No 2.5mg Common [place] 11-10 Spirit 00:00: - CHI 00 [facility] Kenalog Kenalog 2020-0 No 40mg Common (Triamcinol (Triamcinol 9-09 S pirit one) one) 00:00: - CHI 00 [facility] Bupivicaine Bupivicaine 2020-0 No 2.5mg Common [place] 11-10 Spirit 00:00: - CHI 00 [facility] Kenalog Kenalog 2020-0 No 40mg Common (Triamcinol (Triamcinol 9-09 S pirit one) one) 00:00: - CHI 00 [facility] Bupivicaine Bupivicaine 2020-0 No 2.5mg Common [place] 11-10 Spirit 00:00: - CHI 00 [facility] Kenalog Kenalog 2020-0 No 40mg Common (Triamcinol (Triamcinol 9-09 S pirit one) one) 00:00: - CHI 00 [facility] Bupivicaine Bupivicaine 2020-0 No 2.5mg Common [place] 11-10 Spirit 00:00: - CHI 00 [facility] Kenalog Kenalog 2020-0 No 40mg Common (Triamcinol (Triamcinol 9- S pirit one) one) 00:00: - CHI 00 [facility] Bupivicaine Bupivicaine 2020-0 No 2.5mg Common [place] 11-10 Spirit 00:00: - CHI 00 [facility] Kenalog Kenalog 2020-0 No 40mg Common (Triamcinol (Triamcinol 9- S pirit one) one) 00:00: - CHI 00 [facility] Bupivicaine Bupivicaine 2020-0 No 2.5mg Common [place] 11-10 Spirit 00:00: - CHI 00 [facility] Kenalog Kenalog 2020-0 No 40mg Common (Triamcinol (Triamcinol 9-09 S pirit one) one) 00:00: - CHI 00 [facility] Bupivicaine Bupivicaine 2020-0 No 2.5mg Common [place] 11-10 Spirit 00:00: - CHI 00 [facility] Kenalog Kenalog 2020-0 No 40mg Common (Triamcinol (Triamcinol 9-09 S pirit one) one) 00:00: - CHI 00 [facility] Bupivicaine Bupivicaine 1-0 No 2.5mg Common [place] 11-10 Spirit 00:00: - CHI 00 [facility] Kenalog Kenalog 2020-0 No 40mg Common (Triamcinol (Triamcinol 9-09 S pirit one) one) 00:00: - CHI 00 [facility] Bupivicaine Bupivicaine 2020-0 No 2.5mg Common [place] 11-10 Spirit 00:00: - CHI 00 [facility] Kenalog Kenalog 2020-0 No 40mg Common (Triamcinol (Triamcinol 11-10 S pirit one) one) 00:00: - CHI [facility] Bupivicaine Bupivicaine 2020-0 No 2.5mg Common [place] 11-10 Spirit 00:00: - CHI 00 [facility] Kenalog Kenalog 2020-0 No 40mg Common (Triamcinol (Triamcinol 11-10 S pirit one) one) 00:00: - CHI 00 [facility] Linzess 72 Linzess 72 2020-0 2020- No QD Linzess 72 MCG MCG 11-02 11-30 MCG 00:00: 00:00 00 :00 Synvisc 1 Synvisc 1 2020-0 No 6mg Com mon - Spirit 00:00: - CHI [facility] Bupivicaine Bupivicaine 2020-0 No 2.5mg [place] - Spirit 00:00: - CHI 00 [facility] Synvisc 1 Synvisc 1 2020-0 No 6mg Com mon - Spirit 00:00: - CHI 00 [facility] Bupivicaine Bupivicaine 2020-0 No Common [place] 5- Spirit 00:00: - CHI [facility] Synvisc 1 Synvisc 1 2020-0 No 6mg Com mon - Spirit 00:00: - CHI 00 [facility] Bupivicaine Bupivicaine 2020-0 No Common [place] 5-11 Spirit 00:00: - CHI 00 [facility] Synvisc 1 Synvisc 1 2020-0 No 6mg Com mon - Spirit 00:00: - CHI [facility] Bupivicaine Bupivicaine 2020-0 No 2.5mg Common [place] 5-11 Spirit 00:00: - CHI [facility] Synvisc 1 Synvisc 1 2020-0 No 6mg Com mon - Spirit 00:00: - CHI [facility] Bupivicaine Bupivicaine 1-0 No 2.5mg Common [place] 07-12 Spirit 00:00: - CHI [facility] Synvisc 1 Synvisc 1 2020-0 No 6mg Com 07-12 Spirit 00:00: - CHI [facility] Bupivicaine Bupivicaine 2020-0 No 2.5mg Common [place] 07-12 Spirit 00:00: - CHI [facility] Synvisc 1 Synvisc 1 2020-0 No 6mg Com 07-12 Spirit 00:00: - CHI [facility] Bupivicaine Bupivicaine 2020-0 No 2.5mg [facility] [place] 07-12 Spirit 00:00: - CHI [facility] Synvisc 1 Synvisc 1 2020-0 No 6mg Com 07-12 Spirit 00:00: - CHI [facility] Bupivicaine Bupivicaine 2020-0 No 2.5mg [facility] [place] 07-12 Spirit 00:00: - CHI [facility] Synvisc 1 Synvisc 1 2020-0 No 6mg Com 07-12 Spirit 00:00: - CHI [facility] Bupivicaine Bupivicaine 2020-0 No 2.5mg Common [place] 07-12 Spirit 00:00: - CHI [facility] Synvisc 1 Synvisc 1 2020-0 No 6mg Com 07-12 Spirit 00:00: - CHI [facility] Bupivicaine Bupivicaine 2020-0 No 2.5mg [place] 07-12 Spirit 00:00: - CHI [facility] Synvisc 1 Synvisc 1 2020-0 No 6mg Com 07-12 Spirit 00:00: - CHI [facility] Bupivicaine Bupivicaine 2020-0 No 2.5mg [place] 07-12 Spirit 00:00: - CHI [facility] Synvisc 1 Synvisc 1 2020-0 No 6mg Com 07-12 Spirit 00:00: - CHI [facility] Bupivicaine Bupivicaine No 2.5mg [facility] [place] 07-12 Spirit 00:00: - CH[facility] Synvisc 1 Synvisc 1 No 6mg Com mon 07-12 Spirit 00:00: - CHI [facility] Bupivicaine Bupivicaine No 2.5mg [place] 07-12 Spirit 00:00: - CHI [facility] Synvisc 1 Synvisc 1 No 6mg Com 07-12 Spirit 00:00: - CHI [facility] Bupivicaine Bupivicaine No 2.5mg [place] 07-12 Spirit 00:00: - CH[facility] HYDROcodone 2014-03 Yes 1{tbl} Take 1 Tab [...] Sharri Inject 60 Commo n SoloStar SoloStar Tucker units Spiri t - CHI [facility] NexIUM 40 NexIUM 40 No [...] No QD Rybelsus MG MG 14 MG [place] No 1{table BID [place] 10-325 MG 10-325 MG t_as_ne 10-325 MG eded} Gabapentin Gabapentin No 1{capsu TID Gabapentin 600 MG 600 MG le} 600 MG [facility] Senior Senior Formula Formula Formula metFORMIN metFORMIN No metFORMIN HCl 1000 MG HCl 1000 MG HCl 1000 MG Paxil 40 MG Paxil 40 MG No 1{table QD Paxil 40 t_in_th MG e_morni ng} Pen [place] Pen [place] No Pen 31G X 6 MM 31G X 6 MM [place] 31G X 6 MM Kroger Pen Kroger Pen No Kroger Pen [place] 31G [place] 31G [place] X 6 MM X 6 MM 31G X 6 MM metFORMIN metFORMIN No metFORMIN HCl 1000 MG HCl 1000 MG HCl 1000 MG [place] No 1{table BID [place] 10-325 MG 10-325 MG t_as_ne 10-325 MG [...] Aspirin 81 Aspirin 81 No Aspirin 81 [facility] Senior Senior Formula Formula Formula NexIUM 40 [...] 160-9-4.8 160-9-4.8 160-9-4.8 MCG/ACT MCG/ACT MCG/ACT Pen [place] Pen [place] No Pen 31G X 6 MM 31G X 6 MM [place] 31G X 6 MM Losartan Losartan No Losartan Potassium-H Potassium-H Potassium- CTZ 50-12.5 CTZ 50-12.5 HCTZ MG MG 50-12.5 MG Kroger Pen Kroger Pen No Kroger Pen [place] 31G [place] 31G [place] X 6 MM X 6 MM 31G X 6 MM Lantus Lantus No Lantus SoloStar SoloStar SoloStar 100 unit/mL 100 unit/mL 100 unit/mL metFORMIN metFORMIN No metFORMIN HCl 1000 MG HCl 1000 MG HCl 1000 MG [place] No 1{table BID [place] 10-325 MG 10-325 MG t_as_ne 10-325 MG [...] Senior Senior Senior Formula Formula Formula Pen [place] Pen [place] No Pen 31G X 6 MM 31G X 6 MM [place] 31G X 6 MM Gabapentin Gabapentin No 1{capsu TID Gabapentin 600 MG 600 MG le} 600 MG Lisinopril Lisinopril No Lisinopril 40 40 40 Levothyroxi Levothyroxi No QD Levothyrox ne Sodium ne Sodium ine Sodium 125 MCG 125 MCG 125 MCG Cymbalta 60 Cymbalta 60 No 1{capsu QD Cymbalta MG MG le} 60 MG Pen [place] Pen [place] No Pen 31G X 6 MM 31G X 6 MM [place] 31G X 6 MM Rybelsus 14 Rybelsus 14 No QD Rybelsus MG MG 14 MG Kroger Pen Kroger Pen No Kroger Pen [place] 31G [place] 31G [place] X 6 MM X 6 MM 31G [...] Aerosphere 160-9-4.8 160-9-4.8 160-9-4.8 MCG/ACT MCG/ACT MCG/ACT [place] No 1{table BID [place] 10-325 MG 10-325 MG t_as_ne 10-325 MG [...] Kroger Pen Kroger Pen No Kroger Pen [place] 31G [place] 31G [place] X 6 MM X 6 MM 31G X 6 MM BD Pen BD Pen No BD Pen Needle Needle Needle Micro U/F Micro U/F Micro U/F 32G X 6 MM 32G X 6 MM 32G X 6 MM Aspirin 81 Aspirin 81 No Aspirin 81 [place] No 1{table BID [place] 10-325 MG 10-325 MG t_as_ne 10-325 MG eded} Lisinopril Lisinopril No Lisinopril 40 40 40 Gabapentin Gabapentin No 1{capsu TID Gabapentin 600 MG 600 MG le} 600 MG Century No Senior Senior Formula Formula Formula PARoxetine PARoxetine No PARoxetine HCl 40 MG HCl 40 MG HCl 40 MG Breztri Breztri No Breztri Aerosphere Aerosphere Aerosphere 160-9-4.8 160-9-4.8 160-9-4.8 MCG/ACT MCG/ACT MCG/ACT Lantus Lantus No Lantus SoloStar SoloStar SoloStar 100 unit/mL 100 unit/mL 100 unit/mL Pen [place] Pen [place] No Pen 31G X 6 MM 31G X 6 MM [place] 31G X 6 MM Linzess 72 Linzess [...] Kroger Pen Kroger Pen No Kroger Pen [place] 31G [place] 31G [place] X 6 MM X 6 MM 31G X 6 MM BD Pen BD Pen No BD Pen Needle Needle Needle Micro U/F Micro U/F Micro U/F 32G X 6 MM 32G X 6 MM 32G X 6 MM Aspirin 81 Aspirin 81 No Aspirin 81 [place] No 1{table BID [place] 10-325 MG 10-325 MG t_as_ne 10-325 MG eded} Lisinopril Lisinopril No Lisinopril 40 40 40 Gabapentin Gabapentin No 1{capsu TID Gabapentin 600 MG 600 MG le} 600 MG Century No Century Senior Senior Senior Formula Formula Formula PARoxetine PARoxetine No PARoxetine HCl 40 MG HCl 40 MG HCl 40 MG Breztri Breztri No Breztri Aerosphere Aerosphere Aerosphere 160-9-4.8 160-9-4.8 160-9-4.8 MCG/ACT MCG/ACT MCG/ACT Lantus Lantus No Lantus SoloStar SoloStar SoloStar 100 unit/mL 100 unit/mL 100 unit/mL Pen [place] Pen [place] No Pen 31G X 6 MM 31G X 6 MM [place] 31G X 6 MM NexIUM 40 NexIUM [...] Calcium 20 MG 20 MG 20 MG [place] No 1{table BID [place] 10-325 MG 10-325 MG t_as_ne 10-325 MG eded} Linzess 72 Linzess 72 No Linzess 72 MCG MCG MCG Pen [place] Pen [place] No Pen 31G X 6 MM 31G X 6 MM [place] 31G X 6 MM BD Pen BD Pen No BD Pen Needle Needle Needle Micro U/F Micro U/F Micro U/F 32G X 6 MM 32G X 6 MM 32G X 6 MM Kroger Pen Kroger Pen No Kroger Pen [place] 31G [place] 31G [place] X 6 MM X 6 MM 31G X 6 MM Rybelsus 14 Rybelsus 14 No QD Rybelsus MG MG 14 MG DULoxetine DULoxetine No DULoxetine HCl 60 MG HCl 60 MG HCl 60 MG Levothyroxi Levothyroxi No Levothyrox ne Sodium ne Sodium ine Sodium 125 MCG 125 MCG 125 MCG Century Century No Senior Senior Senior Formula Formula Formula PARoxetine [...] QD NexIUM 40 MG MG le} MG [place] No 1{table BID [place] 10-325 MG 10-325 MG t_as_ne 10-325 MG [...] Kroger Pen Kroger Pen No Kroger Pen [place] 31G [place] 31G [place] X 6 MM X 6 MM 31G X 6 MM Lantus Lantus No QD Lantus SoloStar SoloStar SoloStar 100 unit/mL 100 unit/mL 100 unit/mL metFORMIN metFORMIN No metFORMIN HCl 1000 MG HCl 1000 MG HCl 1000 MG Senior Senior Senior Formula Formula Formula Breztri [...] MG HCl 60 MG HCl 60 MG [place] No 1{table BID [place] 10-325 MG 10-325 MG t_as_ne 10-325 MG eded} Aspirin 81 Aspirin 81 No Aspirin 81 Gabapentin Gabapentin No 1{capsu TID Gabapentin 600 MG 600 MG le} 600 MG Breztri Breztri No Anthonytri Aerosphere Aerosphere Aerosphere 160-9-4.8 160-9-4.8 160-9-4.8 MCG/ACT MCG/ACT MCG/ACT Losartan Losartan No Losartan Potassium-H Potassium-H Potassium- CTZ 50-12.5 CTZ 50-12.5 HCTZ MG MG 50-12.5 MG Kroger Pen Kroger Pen No Kroger Pen [place] 31G [place] 31G [place] X 6 MM X 6 MM 31G X 6 MM Rosuvastati Rosuvastati No Rosuvastat n Calcium n Calcium in Calcium 20 MG 20 MG 20 MG Lantus Lantus No QD Lantus SoloStar SoloStar SoloStar 100 unit/mL 100 unit/mL 100 unit/mL PARoxetine PARoxetine No PARoxetine HCl 40 MG HCl 40 MG HCl 40 MG Rybelsus 14 Rybelsus 14 No Rybelsus MG MG 14 MG Senior Senior Senior Formula Formula Formula Rybelsus [...] CTZ 50-12.5 HCTZ MG MG 50-12.5 MG [place] Deep [place] No 1{table BID [place] 10-325 MG 10-325 MG t_as_ne 10-325 MG [...] Senior Senior Senior Formula Formula Formula Breztri Scottiei No Breztri Aerosphere Aerosphere Aerosphere 160-9-4.8 160-9-4.8 160-9-4.8 MCG/ACT MCG/ACT MCG/ACT Rybelsus 14 Rybelsus 14 No Rybelsus MG MG 14 MG Rybelsus 7 Rybelsus 7 No Rybelsus 7 MG MG MG Kroger Pen Kroger Pen No Kroger Pen [place] 31G [place] 31G [place] X 6 MM X 6 MM 31G [...] Aspirin 81 Aspirin 81 No Aspirin 81 [place] Deep [place] No 1{table BID [place] 10-325 MG 10-325 MG t_as_ne 10-325 MG [...] Kroger Pen Kroger Pen No Kroger Pen [place] 31G [place] 31G [place] X 6 MM X 6 MM 31G [...] Aspirin 81 Aspirin 81 No Aspirin 81 [place] Deep [place] No 1{table BID [place] 10-325 MG 10-325 MG t_as_ne 10-325 MG [...] Kroger Pen Kroger Pen No Kroger Pen [place] 31G [place] 31G [place] X 6 MM X 6 MM 31G X 6 MM Lantus Lantus No QD Lantus SoloStar SoloStar SoloStar 100 unit/mL 100 unit/mL 100 unit/mL Kroger Pen Kroger Pen No Kroger Pen [place] 31G [place] 31G [place] X 6 MM X 6 MM 31G [...] No QD Rybelsus MG MG 14 MG [place] Deep [place] No 1{table BID [place] 10-325 MG 10-325 MG t_as_ne 10-325 MG [...] Kroger Pen Kroger Pen No Kroger Pen [place] 31G [place] 31G [place] X 6 MM X 6 MM 31G [...] Aerosphere 160-9-4.8 160-9-4.8 160-9-4.8 MCG/ACT MCG/ACT MCG/ACT Century Century No Century Senior Senior Senior Formula Formula Formula DULoxetine DULoxetine No DULoxetine HCl 60 MG HCl 60 MG HCl 60 MG Aspirin 81 Aspirin 81 No Aspirin 81 Lisinopril Lisinopril No Lisinopril 40 40 40 [place] No 1{table BID [place] 10-325 MG 10-325 MG t_as_ne 10-325 MG eded} Levothyroxi Levothyroxi No Levothyrox ne Sodium ne Sodium ine Sodium 125 MCG 125 MCG 125 MCG Losartan Losartan No Losartan Potassium-H Potassium-H Potassium- CTZ 50-12.5 CTZ 50-12.5 HCTZ MG MG 50-12.5 MG Linzess 72 Linzess 72 No Linzess 72 MCG MCG MCG Lisinopril Lisinopril No Lisinopril 40 40 40 metFORMIN metFORMIN No BID metFORMIN HCl 1000 MG HCl 1000 MG HCl 1000 MG Breztri Breztri No Breztri Aerosphere Aerosphere Aerosphere 160-9-4.8 160-9-4.8 160-9-4.8 MCG/ACT MCG/ACT MCG/ACT buPROPion buPROPion No buPROPion HCl 75 MG HCl 75 MG HCl 75 MG Lantus Lantus No QD Lantus SoloStar SoloStar SoloStar 100 unit/mL 100 unit/mL 100 unit/mL [place] Deep [place] No 1{table BID [place] 10-325 MG 10-325 MG t_as_ne 10-325 MG eded} Rybelsus 14 Rybelsus 14 No QD Rybelsus MG MG 14 MG Omeprazole Omeprazole No QD Omeprazole 40 MG 40 MG 40 MG Losartan Losartan No Losartan Potassium-H Potassium-H Potassium- CTZ 50-12.5 CTZ 50-12.5 HCTZ MG MG 50-12.5 MG Levothyroxi Levothyroxi No Levothyrox ne Sodium ne Sodium ine Sodium 100 MCG 100 MCG 100 MCG PARoxetine PARoxetine No PARoxetine HCl 40 MG HCl 40 MG HCl 40 MG Kroger Pen Kroger Pen No Kroger Pen [place] 31G [place] 31G [place] X 6 MM X 6 MM 31G X 6 MM Linzess 72 Linzess 72 No Linzess 72 MCG MCG MCG Atorvastati Atorvastati No 1{table QD Atorvastat n Calcium n Calcium t} in Calcium 40 MG 40 MG 40 MG BD Pen BD Pen No BD Pen Needle Needle Needle Micro U/F Micro U/F Micro U/F 32G X 6 MM 32G X 6 MM 32G X 6 MM Gabapentin Gabapentin No 1{capsu TID Gabapentin 600 MG 600 MG le} 600 MG DULoxetine DULoxetine No DULoxetine HCl 60 MG HCl 60 MG HCl 60 MG Pregabalin Pregabalin No 1{capsu Pregabalin 50 MG 50 MG le} 50 MG Symbicort Symbicort No 2{puffs Symbicort 160-4.5 160-4.5 } 160-4.5 MCG/ACT MCG/ACT MCG/ACT Aspirin 81 Aspirin 81 No Aspirin 81 NexIUM 40 NexIUM 40 No 1{capsu QD NexIUM 40 MG MG le} MG NexIUM 40 NexIUM 40 No 1{capsu QD NexIUM 40 MG MG le} MG Lantus Lantus No QD Lantus SoloStar SoloStar SoloStar 100 unit/mL 100 unit/mL 100 unit/mL buPROPion buPROPion No buPROPion HCl 75 MG HCl 75 MG HCl 75 MG PARoxetine PARoxetine No PARoxetine HCl 40 MG HCl 40 MG HCl 40 MG metFORMIN metFORMIN No BID metFORMIN HCl 1000 MG HCl 1000 MG HCl 1000 MG Omeprazole Omeprazole No QD Omeprazole 40 MG 40 MG 40 MG BD Pen BD Pen No BD Pen Needle Needle Needle Micro U/F Micro U/F Micro U/F 32G X 6 MM 32G X 6 MM 32G X 6 MM Losartan Losartan No Losartan Potassium-H Potassium-H Potassium- CTZ 50-12.5 CTZ 50-12.5 HCTZ MG MG 50-12.5 MG Breztri Breztri No Breztri Aerosphere Aerosphere Aerosphere 160-9-4.8 160-9-4.8 160-9-4.8 MCG/ACT MCG/ACT MCG/ACT Pregabalin Pregabalin No 1{capsu Pregabalin 50 MG 50 MG le} 50 MG Atorvastati Atorvastati No 1{table QD Atorvastat n Calcium n Calcium t} in Calcium 40 MG 40 MG 40 MG Kroger Pen Kroger Pen No Kroger Pen [place] 31G [place] 31G [place] X 6 MM X 6 MM 31G X 6 MM Symbicort Symbicort No 2{puffs Symbicort 160-4.5 160-4.5 } 160-4.5 MCG/ACT MCG/ACT MCG/ACT Aspirin 81 Aspirin 81 No Aspirin 81 Lisinopril Lisinopril No Lisinopril 40 40 40 [place] Deep [place] No 1{table BID [place] 10-325 MG 10-325 MG t_as_ne 10-325 MG eded} Gabapentin Gabapentin No 1{capsu TID Gabapentin 600 MG 600 MG le} 600 MG Rybelsus 14 Rybelsus 14 No QD Rybelsus MG MG 14 MG Levothyroxi Levothyroxi No Levothyrox ne Sodium ne Sodium ine Sodium 100 MCG 100 MCG 100 MCG Linzess 72 Linzess 72 No Linzess 72 MCG MCG MCG DULoxetine DULoxetine No DULoxetine HCl 60 MG HCl 60 MG HCl 60 MG NexIUM 40 NexIUM 40 No 1{capsu QD NexIUM 40 MG MG le} MG Lantus Lantus No QD Lantus SoloStar SoloStar SoloStar 100 unit/mL 100 unit/mL 100 unit/mL buPROPion buPROPion No buPROPion HCl 75 MG HCl 75 MG HCl 75 MG PARoxetine PARoxetine No PARoxetine HCl 40 MG HCl 40 MG HCl 40 MG metFORMIN metFORMIN No BID metFORMIN HCl 1000 MG HCl 1000 MG HCl 1000 MG Omeprazole Omeprazole No QD Omeprazole 40 MG 40 MG 40 MG BD Pen BD Pen No BD Pen Needle Needle Needle Micro U/F Micro U/F Micro U/F 32G X 6 MM 32G X 6 MM 32G X 6 MM Losartan Losartan No Losartan Potassium-H Potassium-H Potassium- CTZ 50-12.5 CTZ 50-12.5 HCTZ MG MG 50-12.5 MG Breztri Breztri No Breztri Aerosphere Aerosphere Aerosphere 160-9-4.8 160-9-4.8 160-9-4.8 MCG/ACT MCG/ACT MCG/ACT Pregabalin Pregabalin No 1{capsu Pregabalin 50 MG 50 MG le} 50 MG Atorvastati Atorvastati No 1{table QD Atorvastat n Calcium n Calcium t} in Calcium 40 MG 40 MG 40 MG Kroger Pen Kroger Pen No Kroger Pen [place] 31G [place] 31G [place] X 6 MM X 6 MM 31G X 6 MM Symbicort Symbicort No 2{puffs Symbicort 160-4.5 160-4.5 } 160-4.5 MCG/ACT MCG/ACT MCG/ACT Aspirin 81 Aspirin 81 No Aspirin 81 Lisinopril Lisinopril No Lisinopril 40 40 40 [place] No 1{table BID [place] 10-325 MG 10-325 MG t_as_ne 10-325 MG eded} Gabapentin Gabapentin No 1{capsu TID Gabapentin 600 MG 600 MG le} 600 MG Rybelsus 14 Rybelsus 14 No QD Rybelsus MG MG 14 MG Levothyroxi Levothyroxi No Levothyrox ne Sodium ne Sodium ine Sodium 100 MCG 100 MCG 100 MCG Linzess 72 Linzess 72 No Linzess 72 MCG MCG MCG DULoxetine DULoxetine No DULoxetine HCl 60 MG HCl 60 MG HCl 60 MG Lantus Lantus No QD Lantus SoloStar SoloStar SoloStar 100 unit/mL 100 unit/mL 100 unit/mL Kroger Pen Kroger Pen No Kroger Pen [place] 31G [place] 31G [place] X 6 MM X 6 MM 31G [...] MM 32G X 6 MM Immunizations Ordered Filled Immunization Date Status Comments Sour e Immunization Name Name Flucelvax - single Flucelvax - single 2021-11-13 Completed [facility] dose [facility] dose syringe 16:23:00 - [facility] Flucelvax - single Flucelvax - single 2021-11-13 Completed [facility] dose syringe dose syringe 16:23:00 - [facility] Flucelvax - single Flucelvax - single 2021-11-13 Completed [facility] dose syringe dose syringe 16:23:00 - [facility] Flucelvax - single Flucelvax - single 2021-11-13 Completed [facility] dose syringe dose syringe 16:23:00 - [facility] Flucelvax - single Flucelvax - single 2021-11-13 Completed [facility] dose syringe dose syringe 16:23:00 - [facility] Flucelvax - single Flucelvax - single 2021-11-13 Completed [facility] dose syringe dose syringe 16:23:00 - [facility] FLUZONE HIGH DOSE FLUZONE HIGH DOSE 2021-02-01 Completed [facility] OVER 65 OVER 65 11:51:00 - [facility] FLUZONE HIGH DOSE FLUZONE HIGH DOSE 2021-02-01 Completed [facility] OVER 65 OVER 65 11:51:00 - [facility] FLUZONE HIGH DOSE FLUZONE HIGH DOSE 2021-02-01 Completed [facility] OVER 65 OVER 65 11:51:00 - [facility] FLUZONE HIGH DOSE FLUZONE HIGH DOSE 2021-02-01 Completed [facility] OVER 65 OVER 65 11:51:00 - [facility] FLUZONE HIGH DOSE FLUZONE HIGH DOSE 2021-02-01 Completed [facility] OVER 65 OVER 65 11:51:00 - [facility] FLUZONE HIGH DOSE FLUZONE HIGH DOSE 2021-02-01 Completed [facility] OVER 65 OVER 65 11:51:00 - [facility] FLUZONE HIGH DOSE FLUZONE HIGH DOSE 2021-02-01 Completed [facility] OVER 65 OVER 65 11:51:00 - [facility] FLUZONE HIGH DOSE FLUZONE HIGH DOSE 2021-02-01 Completed [facility] OVER 65 OVER 65 11:51:00 - [facility] FLUZONE HIGH DOSE FLUZONE HIGH DOSE 2021-02-01 Completed [facility] OVER 65 OVER 65 11:51:00 - [facility] FLUZONE HIGH DOSE FLUZONE HIGH DOSE 2021-02-01 Completed [facility] OVER 65 OVER 65 11:51:00 - [facility] FLUZONE HIGH DOSE FLUZONE HIGH DOSE 2021-02-01 Completed [facility] OVER 65 OVER 65 11:51:00 - [facility] FLUZONE HIGH DOSE FLUZONE HIGH DOSE 2021-02-01 Completed [facility] OVER 65 OVER 65 11:51:00 - [facility] FLUZONE HIGH DOSE FLUZONE HIGH DOSE 2021-02-01 Completed [facility] OVER 65 OVER 65 11:51:00 - [facility] Bupivicaine [place] Bupivicaine [place] 2020-11-10 Completed [facility] 08:30:00 [facility] Kenalog Kenalog 2020-11-10 Completed [facility] (Triamcinolone) (Triamcinolone) 08:30:00 [facility] Moderna COVID-19 Moderna COVID-19 2020-07-22 Completed [facility] Vaccine Vaccine 14:48:00 [facility] Moderna COVID-19 Moderna COVID-19 2020-07-22 Completed [facility] Vaccine Vaccine 14:48:00 - [facility] Moderna COVID-19 Moderna COVID-19 2020-07-22 Completed [facility] Vaccine Vaccine 14:48:00 [facility] Moderna COVID-19 Moderna COVID-19 2020-07-22 Completed [facility] Vaccine Vaccine 14:48:00 [facility] Moderna COVID-19 Moderna COVID-19 2020-07-22 Completed [facility] Vaccine Vaccine 14:48:00 - [facility] Moderna COVID-19 Moderna COVID-19 2020-07-22 Completed [facility] Vaccine Vaccine 14:48:00 - [facility] Moderna COVID-19 Moderna COVID-19 2020-07-22 Completed [facility] Vaccine Vaccine 14:48:00 - [facility] Moderna COVID-19 Moderna COVID-19 2020-07-22 Completed [facility] Vaccine Vaccine 14:48:00 - [facility] Moderna COVID-19 Moderna COVID-19 2020-07-22 Completed [facility] Vaccine Vaccine 14:48:00 - [facility] Moderna COVID-19 Moderna COVID-19 2020-07-22 Completed [facility] Vaccine Vaccine 14:48:00 - [facility] Moderna COVID-19 Moderna COVID-19 2020-07-22 Completed [facility] Vaccine Vaccine 14:48:00 - [facility] Moderna COVID-19 Moderna COVID-19 2020-07-22 Completed [facility] Vaccine Vaccine 14:48:00 - [facility] Moderna COVID-19 Moderna COVID-19 2020-07-22 Completed [facility] Vaccine Vaccine 14:48:00 [facility] Bupivicaine [place] Bupivicaine [place] 2020-07-12 Completed [facility] 09:13:00 [facility] Synvisc 1 Synvisc 1 2020-07-12 Completed [facility] 08:50:00 [facility] Moderna COVID-19 Moderna COVID-19 2020-06-22 Completed [facility] Vaccine Vaccine 14:40:00 - [facility] Moderna COVID-19 Moderna COVID-19 2020-06-22 Completed [facility] Vaccine Vaccine 14:40:00 - [facility] Moderna COVID-19 Moderna COVID-19 2020-06-22 Completed [facility] Vaccine Vaccine 14:40:00 - [facility] Moderna COVID-19 Moderna COVID-19 2020-06-22 Completed [facility] Vaccine Vaccine 14:40:00 - [facility] Moderna COVID-19 Moderna COVID-19 2020-06-22 Completed [facility] Vaccine Vaccine 14:40:00 - [facility] Moderna COVID-19 Moderna COVID-19 2020-06-22 Completed [facility] Vaccine Vaccine 14:40:00 - [facility] Moderna COVID-19 Moderna COVID-19 2020-06-22 Completed [facility] Vaccine Vaccine 14:40:00 - [facility] Moderna COVID-19 Moderna COVID-19 2020-06-22 Completed [facility] Vaccine Vaccine 14:40:00 - [facility] Moderna COVID-19 Moderna COVID-19 2020-06-22 Completed [facility] Vaccine Vaccine 14:40:00 - [facility] Moderna COVID-19 Moderna COVID-19 2020-06-22 Completed [facility] Vaccine Vaccine 14:40:00 - [facility] Moderna COVID-19 Moderna COVID-19 2020-06-22 Completed [facility] Vaccine Vaccine 14:40:00 - [facility] Moderna COVID-19 Moderna COVID-19 2020-06-22 Completed [facility] Vaccine Vaccine 14:40:00 - [facility] Moderna COVID-19 Moderna COVID-19 2020-06-22 Completed [facility] Vaccine Vaccine 14:40:00 - [facility] Moderna COVID-19 Moderna COVID-19 2020-06-22 Completed [facility] Vaccine Vaccine 14:40:00 - [facility] Shingrix Shingrix 2020-06-02 Completed [facility] 14:49:00 - [facility] Shingrix Shingrix 2020-06-02 Completed [facility] 14:49:00 - [facility] Shingrix Shingrix 2020-06-02 Completed [facility] 14:49:00 - [facility] Shingrix Shingrix 2020-06-02 Completed [facility] 14:49:00 - [facility] Shingrix Shingrix 2020-06-02 Completed [facility] 14:49:00 - [facility] Shingrix Shingrix 2020-06-02 Completed [facility] 14:49:00 - [facility] Shingrix Shingrix 2020-06-02 Completed [facility] 14:49:00 - [facility] Shingrix Shingrix 2020-06-02 Completed [facility] 14:49:00 - [facility] Shingrix Shingrix 2020-06-02 Completed [facility] 14:49:00 - [facility] Shingrix Shingrix 2020-06-02 Completed [facility] 14:49:00 - [facility] Shingrix Shingrix 2020-06-02 Completed [facility] 14:49:00 - [facility] Shingrix Shingrix 2020-06-02 Completed [facility] 14:49:00 - [facility] Shingrix Shingrix 2020-06-02 Completed [facility] 14:49:00 - [facility] Prevnar 13 (PCV13) Prevnar 13 (PCV13) 2020-03-04 Completed [facility] 14:49:00 [facility] Prevnar 13 (PCV13) Prevnar 13 (PCV13) 2020-03-04 Completed [facility] 14:49:00 [facility] Prevnar 13 (PCV13) Prevnar 13 (PCV13) 2020-03-04 Completed [facility] 14:49:00 [facility] Prevnar 13 (PCV13) Prevnar 13 (PCV13) 2020-03-04 Completed [facility] 14:49:00 [facility] Prevnar 13 (PCV13) Prevnar 13 (PCV13) 2020-03-04 Completed [facility] 14:49:00 [facility] Prevnar 13 (PCV13) Prevnar 13 (PCV13) 2020-03-04 Completed [facility] 14:49:00 [facility] Prevnar 13 (PCV13) Prevnar 13 (PCV13) 2020-03-04 Completed [facility] 14:49:00 [facility] Prevnar 13 (PCV13) Prevnar 13 (PCV13) 2020-03-04 Completed [facility] 14:49:00 - [facility] Prevnar 13 (PCV13) Prevnar 13 (PCV13) 2020-03-04 Completed [facility] 14:49:00 - [facility] Prevnar 13 (PCV13) Prevnar 13 (PCV13) 2020-03-04 Completed [facility] 14:49:00 - [facility] Prevnar 13 (PCV13) Prevnar 13 (PCV13) 2020-03-04 Completed [facility] 14:49:00 - [facility] Prevnar 13 (PCV13) Prevnar 13 (PCV13) 2020-03-04 Completed [facility] 14:49:00 - [facility] Prevnar 13 (PCV13) Prevnar 13 (PCV13) 2020-03-04 Completed [facility] 14:49:00 [facility] Fluzone 6-35 months Fluzone 6-35 months 2020-01-13 Completed [facility] 17:25:00 [facility] Fluzone 6-35 months Fluzone 6-35 months 2020-01-13 Completed [facility] 17:25:00 [facility] Fluzone 6-35 months Fluzone 6-35 months 2020-01-13 Completed [facility] 17:25:00 [facility] Fluzone 6-35 months Fluzone 6-35 months 2020-01-13 Completed [facility] 17:25:00 [facility] Fluzone 6-35 months Fluzone 6-35 months 2020-01-13 Completed [facility] 17:25:00 [facility] Fluzone 6-35 months Fluzone 6-35 months 2020-01-13 Completed [facility] 17:25:00 [facility] Fluzone 6-35 months Fluzone 6-35 months 2020-01-13 Completed [facility] 17:25:00 [facility] Fluzone 6-35 months Fluzone 6-35 months 2020-01-13 Completed [facility] 17:25:00 [facility] Fluzone 6-35 months Fluzone 6-35 months 2020-01-13 Completed [facility] 17:25:00 [facility] Fluzone 6-35 months Fluzone 6-35 months 2020-01-13 Completed [facility] 17:25:00 - [facility] Fluzone 6-35 months Fluzone 6-35 months 2020-01-13 Completed [facility] 17:25:00 [facility] Fluzone 6-35 months Fluzone 6-35 months 2020-01-13 Completed [facility] 17:25:00 [facility] Fluzone 6-35 months Fluzone 6-35 months 2020-01-13 Completed [facility] 17:25:00 - [facility] Fluzone 6-35 months Fluzone 6-35 months 2020-01-13 Completed [facility] 17:25:00 - [facility] Prevnar 13 Prevnar 13 2016-12-04 Completed [facility] -Pneumonia Vaccine -Pneumonia Vaccine 13:25:00 - [facility] Prevnar 13 Prevnar 13 2016-12-04 Completed [facility] -Pneumonia Vaccine -Pneumonia Vaccine 13:25:00 [facility] Prevnar 13 Prevnar 13 2016-12-04 Completed [facility] -Pneumonia Vaccine -Pneumonia Vaccine 13:25:00 - [facility] Prevnar 13 Prevnar 13 2016-12-04 Completed [facility] -Pneumonia Vaccine -Pneumonia Vaccine 13:25:00 [facility] Prevnar 13 Prevnar 13 2016-12-04 Completed [facility] -Pneumonia Vaccine -Pneumonia Vaccine 13:25:00 - [facility] Prevnar 13 Prevnar 13 2016-12-04 Completed [facility] -Pneumonia Vaccine -Pneumonia Vaccine 13:25:00 [facility] Prevnar 13 Prevnar 13 2016-12-04 Completed [facility] -Pneumonia Vaccine -Pneumonia Vaccine 13:25:00 - [facility] Prevnar 13 Prevnar 13 2016-12-04 Completed [facility] -Pneumonia Vaccine -Pneumonia Vaccine 13:25:00 [facility] Prevnar 13 Prevnar 13 2016-12-04 Completed [facility] -Pneumonia Vaccine -Pneumonia Vaccine 13:25:00 [facility] Prevnar 13 Prevnar 13 2016-12-04 Completed [facility] -Pneumonia Vaccine -Pneumonia Vaccine 13:25:00 [facility] Prevnar 13 Prevnar 13 2016-12-04 Completed [facility] -Pneumonia Vaccine -Pneumonia Vaccine 13:25:00 - [facility] Prevnar 13 Prevnar 13 2016-12-04 Completed [facility] -Pneumonia Vaccine -Pneumonia Vaccine 13:25:00 - [facility] Prevnar 13 Prevnar 13 2016-12-04 Completed [facility] -Pneumonia Vaccine -Pneumonia Vaccine 13:25:00 - [facility] Prevnar 13 Prevnar 13 2016-12-04 Completed [facility] -Pneumonia Vaccine -Pneumonia Vaccine 13:25:00 - [facility] Adacel (Tdap) Adacel (Tdap) 2015-05-31 [facility] 13:24:[facility] - [facility] Adacel (Tdap) Adacel (Tdap) 2015-05-31 [facility] 13:24[facility]00 [facility] Adacel (Tdap) Adacel (Tdap) 2015-05-31 [facility] 13:24:00 - [facility] Adacel (Tdap) Adacel (Tdap) 2015-05-31 [facility] 13:24:[facility] - [facility] Adacel (Tdap) Adacel (Tdap) 2015-05-31 [facility] 13:24:[facility] - [facility] Adacel (Tdap) Adacel (Tdap) 2015-05-31 [facility] 13:24:00 - [facility] Adacel (Tdap) Adacel (Tdap) 2015-05-31 [facility] 13:24:00 - [facility] Adacel (Tdap) Adacel (Tdap) 2015-05-31 [facility] 13:24:00 - [facility] Adacel (Tdap) Adacel (Tdap) 2015-05-31 [facility] 13:24[facility]00 [facility] Adacel (Tdap) Adacel (Tdap) 2015-05-31 [facility] 13:24[facility]00 [facility] Adacel (Tdap) Adacel (Tdap) 2015-05-31 [facility] 13:24[facility]00 [facility] Adacel (Tdap) Adacel (Tdap) 2015-05-31 [facility] 13:24:[facility] - [facility] Adacel (Tdap) Adacel (Tdap) 2015-05-31 [facility] 13:24[facility]00 [facility] Adacel (Tdap) Adacel (Tdap) 2015-05-31 [facility] 13:24[facility]00 [facility] Pneumovax (PPSV23) Pneumovax (PPSV23) 2015-01-03 Completed [facility] 13:25:00 [facility] Pneumovax (PPSV23) Pneumovax (PPSV23) 2015-01-03 Completed [facility] 13:25:00 [facility] Pneumovax (PPSV23) Pneumovax (PPSV23) 2015-01-03 Completed [facility] 13:25:00 [facility] Pneumovax (PPSV23) Pneumovax (PPSV23) 2015-01-03 Completed [facility] 13:25:00 [facility] Pneumovax (PPSV23) Pneumovax (PPSV23) 2015-01-03 Completed [facility] 13:25:00 - [facility] Pneumovax (PPSV23) Pneumovax (PPSV23) 2015-01-03 Completed [facility] 13:25:00 [facility] Pneumovax (PPSV23) Pneumovax (PPSV23) 2015-01-03 Completed [facility] 13:25:00 [facility] Pneumovax (PPSV23) Pneumovax (PPSV23) 2015-01-03 Completed [facility] 13:25:00 [facility] Pneumovax (PPSV23) Pneumovax (PPSV23) 2015-01-03 Completed [facility] 13:25:00 [facility] Pneumovax (PPSV23) Pneumovax (PPSV23) 2015-01-03 Completed [facility] 13:25:00 [facility] Pneumovax (PPSV23) Pneumovax (PPSV23) 2015-01-03 Completed [facility] 13:25:00 [facility] Pneumovax (PPSV23) Pneumovax (PPSV23) 2015-01-03 Completed [facility] 13:25:00 - [facility] Pneumovax (PPSV23) Pneumovax (PPSV23) 2015-01-03 Completed [facility] 13:25:00 - [facility] Pneumovax (PPSV23) Pneumovax (PPSV23) 2015-01-03 Completed [facility] 13:25:00 - [facility] Zostavax Zostavax 2013-12-11 Completed [facility] 13:24:00 - [facility] Zostavax Zostavax 2013-12-11 Completed [facility] 13:24:00 - [facility] Zostavax Zostavax 2013-12-11 Completed [facility] 13:24:00 - [facility] Zostavax Zostavax 2013-12-11 Completed [facility] 13:24:00 - [facility] Zostavax Zostavax 2013-12-11 Completed [facility] 13:24:00 - [facility] Zostavax Zostavax 2013-12-11 Completed [facility] 13:24:00 - [facility] Zostavax Zostavax 2013-12-11 Completed [facility] 13:24:00 - [facility] Zostavax Zostavax 2013-12-11 Completed [facility] 13:24:00 - [facility] Zostavax Zostavax 2013-12-11 Completed [facility] 13:24:00 - [facility] Zostavax Zostavax 2013-12-11 Completed [facility] 13:24:00 - [facility] Zostavax Zostavax 2013-12-11 Completed [facility] 13:24:00 - [facility] Zostavax Zostavax 2013-12-11 Completed [facility] 13:24:00 - [facility] Zostavax Zostavax 2013-12-11 Completed [facility] 13:24:00 - [facility] Zostavax Zostavax 2013-12-11 Completed [facility] 13:24:00 - [facility] Shingrix Shingrix Unknown Completed [facility] - [facility] Flucelvax - single Flucelvax - single Unknown Completed [facility] dose syringe dose syringe - [place] [facility] Pneumovax (PPSV23) Pneumovax (PPSV23) Unknown Completed [facility] Prevnar 13 Prevnar 13 Unknown Completed [facility] -Pneumonia Vaccine -Pneumonia Vaccine [facility] FLUZONE HIGH DOSE FLUZONE HIGH DOSE Unknown Completed Common [facility] OVER 65 OVER 65 - [facility] Fluzone 6-35 months Fluzone 6-35 months Unknown Com[facility] Moderna COVID-19 Unknown Completed [facility] Vaccine Vaccine [facility] Adacel (Tdap) Adacel (Tdap) Unknown Com[facility] Moderna COVID-19 Unknown Completed [facility] Vaccine Vaccine [facility] Zostavax Zostavax Unknown Completed [facility] Prevnar 13 (PCV13) Prevnar 13 (PCV13) Unknown Completed [facility] Prevnar 13 (PCV13) Prevnar 13 (PCV13) Unknown Completed [facility] FLUZONE HIGH DOSE FLUZONE HIGH DOSE Unknown Completed [facility] OVER 65 OVER 65 - [facility] Adacel (Tdap) Adacel (Tdap) Unknown Completed [facility] Zostavax Zostavax Unknown Completed [facility] Fluzone 6-35 months Fluzone 6-35 months Unknown Completed [facility] Prevnar 13 Prevnar 13 Unknown Completed [facility] -Pneumonia Vaccine -Pneumonia Vaccine [facility] Pneumovax (PPSV23) Pneumovax (PPSV23) Unknown Completed [facility] Shingrix Shingrix Unknown Completed [facility] COVID[facility] Moderna COVID-19 Unknown Completed [facility] Vaccine Vaccine [facility] Prevnar 20 (PCV20) Prevnar 20 (PCV20) Unknown Completed [facility] FluAD Quad SD FluAD Quad SD Unknown Completed [facility] Vaccine Vaccine [facility] Flucelvax - single Flucelvax - single Unknown Completed [facility] dose syringe dose syringe [facility] Prevnar 20 (PCV20) Prevnar 20 (PCV20) Unknown Completed [facility] COVID-[facility] Moderna COVID-19 Unknown Completed [facility] Vacc[facility] Vaccine [facility] COVID-19 Unknown Completed [facility] Vaccine Vaccine [facility] FluAD Quad SD FluAD Quad SD Unknown Completed [facility] Prevnar 13 (PCV13) Prevnar 13 (PCV13) Unknown Completed [facility] Shingrix Shingrix Unknown Completed [facility] Flucelvax - single Flucelvax - single Unknown Completed [facility] dose syringe dose syringe [facility] Pneumovax (PPSV23) Pneumovax (PPSV23) Unknown Completed [facility] Prevnar 13 Prevnar 13 Unknown Completed [facility] -Pneumonia Vaccine -Pneumonia Vaccine [facility] FLUZONE HIGH DOSE FLUZONE HIGH DOSE Unknown Completed [facility] OVER 65 OVER 65 [facility] Fluzone 6-35 months Fluzone 6-35 months Unknown Completed [facility] Adacel (Tdap) Adacel (Tdap) Unknown Completed [facility] Zostavax Zostavax Unknown Completed [facility] Vital Signs Vital Name Observation Time Observation Value Comments Source height 2022-05-16 10:20:00 63.5 [in_i] [facility] weight 2022-05-16 10:20:00 196.2 [lb_av] [facility] temperature 2022-05-16 10:20:00 97.4 [degF] [facility] bmi 2022-05-16 10:20:00 34.21 kg/m2 [facility] oximetry 2022-05-16 10:20:00 96 % [facility] respiratory rate 2022-05-16 10:20:00 16 /min Comm on [facility] blood pressure 2022-05-16 10:20:00 133 mm[Hg] Common [facility] - systolic [facility] blood pressure 2022-05-16 10:20:00 74 mm[Hg] Common [facility] - diastolic [facility] height 2022-02-12 10:20:00 63.5 [in_i] Common [facility] weight 2022-02-12 10:20:00 203 [lb_av] [facility] temperature 2022-02-12 10:20:00 97.0 [degF] [facility] bmi 2022-02-12 10:20:00 35.39 kg/m2 [facility] oximetry 2022-02-12 10:20:00 96 % [facility] respiratory rate 2022-02-12 10:20:00 17 /min Comm on [facility] blood pressure 2022-02-12 10:20:00 136 mm[Hg] Common [facility] systolic [facility] blood pressure 2022-02-12 10:20:00 80 mm[Hg] Common [facility] - diastolic [facility] height 2022-02-12 10:20:00 63.5 [in_i] Common [facility] weight 2022-02-12 10:20:00 203 [lb_av] [facility] temperature 2022-02-12 10:20:00 97.0 [degF] [facility] bmi 2022-02-12 10:20:00 35.39 kg/m2 [facility] oximetry 2022-02-12 10:20:00 96 % [facility] respiratory rate 2022-02-12 10:20:00 17 /min Comm on [facility] blood pressure 2022-02-12 10:20:00 136 mm[Hg] Common [facility] - systolic [facility] blood pressure 2022-02-12 10:20:00 80 mm[Hg] Common [facility] - diastolic [facility] Systolic blood 2021-11-20 15:00:00 133 mm[Hg] Univer sity of pressure [facility] Diastolic blood 2021-11-20 15:00:00 76 mm[Hg] Unive rsity of [facility] Heart rate 2021-11-20 15:00:00 75 /min Universi ty [facility] Body temperature 2021-11-20 15:00:00 36.28 Elena Univ ersity [facility] height 2021-11-13 13:20:00 63.5 [in_i] [facility] weight 2021-11-13 13:20:00 200 [lb_av] [facility] temperature 2021-11-13 13:20:00 97.2 [degF] [facility] bmi 2021-11-13 13:20:00 34.87 kg/m2 [facility] oximetry 2021-11-13 13:20:00 96 % [facility] respiratory rate 2021-11-13 13:20:00 16 /min Comm on [facility] blood pressure 2021-11-13 13:20:00 138 mm[Hg] Common [facility] - systolic [facility] blood pressure 2021-11-13 13:20:00 72 mm[Hg] Common [facility] - diastolic [facility] height 2021-08-10 09:40:00 63.5 [in_i] Common [facility] weight 2021-08-10 09:40:00 205.2 [lb_av] Common [facility] temperature 2021-08-10 09:40:00 98.1 [degF] Common [facility] bmi 2021-08-10 09:40:00 35.78 kg/m2 [facility] oximetry 2021-08-10 09:40:00 97 % Common S [facility] respiratory rate 2021-08-10 09:40:00 18 /min Comm on [facility] blood pressure 2021-08-10 09:40:00 136 mm[Hg] Common [facility] - systolic [facility] blood pressure 2021-08-10 09:40:00 76 mm[Hg] Common [facility] - diastolic [facility] height 2021-06-07 13:20:00 63.5 [in_i] [facility] weight 2021-06-07 13:20:00 211.8 [lb_av] [facility] temperature 2021-06-07 13:20:00 98.0 [degF] Common S [facility] bmi 2021-06-07 13:20:00 36.93 kg/m2 Common [facility] oximetry 2021-06-07 13:20:00 94 % Common S [facility] blood pressure 2021-06-07 13:20:00 124 mm[Hg] Common [facility] - systolic [facility] blood pressure 2021-06-07 13:20:00 84 mm[Hg] Common [facility] - diastolic [facility] height 2021-02-09 10:00:00 63.5 [in_i] Common S [facility] weight 2021-02-09 10:00:00 210 [lb_av] Common S [facility] temperature 2021-02-09 10:00:00 97.3 [degF] Common S [facility] bmi 2021-02-09 10:00:00 36.61 kg/m2 Common S [facility] oximetry 2021-02-09 10:00:00 97 % Common S [facility] respiratory rate 2021-02-09 10:00:00 16 /min Comm on [facility] blood pressure 2021-02-09 10:00:00 124 mm[Hg] Common [facility] - systolic [facility] blood pressure 2021-02-09 10:00:00 71 mm[Hg] Common [facility] - diastolic [facility] height 2021-02-01 11:20:00 63.5 [in_i] Common [facility] weight 2021-02-01 11:20:00 206.0 [lb_av] Common [facility] temperature 2021-02-01 11:20:00 96.5 [degF] [facility] bmi 2021-02-01 11:20:00 35.91 kg/m2 [facility] oximetry 2021-02-01 11:20:00 96 % [facility] respiratory rate 2021-02-01 11:20:00 18 /min Comm on [facility] blood pressure 2021-02-01 11:20:00 110 mm[Hg] Common [facility] - systolic [facility] blood pressure 2021-02-01 11:20:00 80 mm[Hg] Common [facility] - diastolic [facility] height 2020-12-05 11:20:00 63.5 [in_i] Common [facility] weight 2020-12-05 11:20:00 215 [lb_av] [facility] bmi 2020-12-05 11:20:00 37.48 kg/m2 [facility] Procedures Procedure Date / Time Performed Performing Clinician Sourc e POCT GLUCOSE 2021-11-20 14:59:00 Julio Cesar Delcid [facility] (AUTOMATED) Medical Branch DISCLOSURE AND 2021-11-20 05:01:00 Doctor Unassigned, No [facility] CONSENT, MEDICAL AND Name Medical [facility] SURGICAL PROCEDURES Encounters Start End Encounter Admission Attending Care Care Encounter Source Date/Time Date/Time Type Type Clinicians Facility Department ID 2022-12-05 [id number] Common 11:26:00 Sharri 98519 [facility] 2022-08-28 Outpatient Tucker, STLMLC STLMLC [id number] Common 08:26:00 Sharri 15532 [facility] 2022-08-16 Outpatient Tucker, STLMLC STLMLC [id number] Common 10:01:00 Sharri 51016 [facility] 2022-02-08 Outpatient Tucker, STLMLC STLMLC [id number] Common 07:27:00 Sharri 42472 [facility] 2021-11-09 Outpatient Tucker, STLMLC STLMLC [id number] Common 10:22:00 Sharri 99515 [facility] 2021-08-08 Outpatient Tucker, STLMLC STLMLC [id number] Common 10:32:00 Sharri [facility] 2021-06-06 Outpatient Tucker, STLMLC STLMLC [id number] Common 11:49:00 Sharri [facility] 2021-06-05 Outpatient Tucker, STLMLC STLMLC [id number] Common 10:30:01 Sharri 26371 [facility] 2021-03-29 Outpatient Tucker, STLMLC STLMLC [id number] Common 14:24:54 Sharri 02525 [facility] 2021-03-29 Outpatient Tucker, STLMLC STLMLC [id number] Common 14:23:28 Sharri 70463 [facility] 2021-03-29 Outpatient Tucker, STLMLC STLMLC [id number] Common 13:48:09 Sharri 68830 [facility] 2021-03-29 Outpatient Tucker, STLMLC STLMLC [id number] Common 13:47:01 Sharri 99952 [facility] 2021-03-29 Outpatient Tucker, STLMLC STLMLC [id number] Common 13:10:13 Sharri 84932 [facility] 2021-03-29 Outpatient Tucker, STLMLC STLMLC [id number] Common 13:08:48 Sharri 40804 [facility] 2021-03-29 Outpatient Tucker, STLMLC STLMLC [id number] Common 12:52:28 Sharri 37303 [facility] 2021-03-29 Outpatient Tucker, STLMLC STLMLC [id number] Common 12:07:10 Shrari 98273 [facility] 2021-03-29 Outpatient Tucker, STLMLC STLMLC [id number] Common 11:06:07 Sharri 59899 [facility] 2021-03-29 Outpatient Millender, STLMLC STLMLC [id number] Common 11:00:07 Sheila 06922 [facility] 2021-03-29 Outpatient Millender, STLMLC STLMLC [id number] Common 10:59:24 Sheila 45995 [facility] 2022-05-16 2022-05-16 OFFICE STLMLC STLMLC [id number] Co mmon 00:00:00 00:00:00 VISIT [facility] PT - CHI LEVEL [address] [place] [address] 2022-04-24 2022-04-24 (TEL) STLMLC STLMLC [id number] Co mmon 00:00:00 00:00:00 [facility] 2022-02-12 2022-02-12 OFFICE STLMLC STLMLC [id number] Co mmon 00:00:00 00:00:00 VISIT [facility] PT - CHI LEVEL [address] [place] [address] 2021-11-28 2021-11-28 (TEL) STLMLC STLMLC [id number] Co mmon 00:00:00 00:00:00 [facility] 2021-11-27 2021-11-27 Telephone Bhavin [facility] [id number] Univers 00:00:00 00:00:00 Julio Cesar QUEZADA [id number] kerline [facility] [id number] [phone] [place] [address] Branch 2021-11-20 2021-11-20 Outpatient Rose DELCID [facility] [id number] Univers 10:00:00 12:11:13 JULIO CESAR [facility] 2021-11-20 2021-11-20 [facility] [id number] Univers 10:00:00 12:00:00 Visit Julio Cesar QUEZADA [id number] ity of [facility] [id number] [phone] [facility] 199 Branch 2021-11-20 2021-11-20 Orders Doctor JOSEPH [id number] Univers 00:00:00 00:00:00 Only Unassigned, SILVER [id number] ity of [facility] [id number] Anders as [phone] [facility] 009 Branch 2021-11-16 2021-11-16 Laboratory Only, Adc Test [facility] [id number]. [id number] Univers 09:00:00 09:15:00 Only Julio Cesar Delcid [id number] ity of [place] [id number] [place] [phone] [facility] 353 Branch 2021-11-16 2021-11-16 [facility] [id number] Univers 09:00:00 09:00:00 JULIO CESAR [facility] 2021-11-14 2021-11-14 (TEL) [facility] [id number] Co mmon 00:00:00 00:00:00 Spirit - CHI [facility] 2021-11-14 2021-11-14 [facility]phone [facility] [id number] Univers 00:00:00 00:00:00 Julio Cesar QUEZADA [id number] ity of [facility] [id number] [phone] [facility] 199 Branch 2021-11-13 2021-11-13 SUB ANNUAL [facility] [id number] Common 00:00:00 00:00:00 [facility] Spirit WELLNESS - CHI VISIT [facility] 2021-11-13 2021-11-13 (TEL) [facility] [id number] Co mmon 00:00:00 00:00:00 Spirit - [facility] 2021-11-09 2021-11-09 Office [facility] [id number] Univers 13:30:00 14:23:10 Visit Julio Cesar QUEZAAD [id number] ity of [facility] [id number] [phone] [facility] 199 Branch 2021-11-09 2021-11-09 Outpatient [facility] [id number] Univers 13:30:00 14:23:10 [facility] 2021-11-09 2021-11-09 Orders Doctor JOSEPH [id number] Univers 00:00:00 00:00:00 Only Unassigned, SILVER [id number] ity of [facility] [id number] Anders [phone] [facility] 009 Branch 2021-08-10 2021-08-10 OFFICE STLC STLC [id number] Co mmon 00:00:00 00:00:00 VISIT EST Spir it PT LEVEL 3 - CHI [facility] 2021-07-16 2021-07-16 Emergency [facility] E[facility] [id number] Univers 14:32:00 18:49:00 MARVA [facility] 2021-07-16 2021-07-16 Emergency [facility] [id number] Univers 14:32:00 18:49:00 Marva ROBBINS [id number] i ty [facility] [id number] [facility] [phone] [facility] 084 Branch 2021-06-15 2021-06-15 (TEL) STLMLC STLMLC [id number] Co mmon 00:00:00 00:00:00 Spirit - [facility] 2021-06-07 2021-06-07 OFFICE STLMLC STLMLC [id number] Co mmon 00:00:00 00:00:00 VISIT Spirit ESTAB PT - CHI LEVEL 4 [facility] 2021-05-25 2021-05-25 (TEL) STLMLC STLMLC [id number] Co mmon 00:00:00 00:00:00 Spirit - [facility] 2021-05-22 2021-05-22 Emergency X [facility] ERT [id number] Univers 17:26:00 20:37:00 TREVER ity of [facility] 2021-05-22 2021-05-22 Emergency [facility] [id number] Univers 17:26:00 20:37:00 Trever ROBBINS [id number] i ty of [place] [id number] [facility] [phone] [facility] 084 Branch 2021-05-22 2021-05-22 Orders Doctor JOSEPH [id number] Univers 00:00:00 00:00:00 Only Unassigned, SILVER [id number] [facility] [id number] [place] [phone] [facility] 009 Branch 2021-04-24 2021-04-24 (TEL) STLMLC STLMLC [id number] Co mmon 00:00:00 00:00:00 [facility] CHI [facility] 2021-02-09 2021-02-09 OFFICE STLMLC STLMLC [id number] Co mmon 00:00:00 00:00:00 VISIT EST Spir it PT LEVEL 3 - CHI [facility] 2021-02-01 2021-02-01 SUB ANNUAL STLMLC STLMLC [id number] Common 00:00:00 00:00:00 MCR Spirit WELLNESS - CHI VISIT [facility] 2020-12-05 2020-12-05 OFFICE STLMLC STLMLC [id number] Co mmon 00:00:00 00:00:00 VISIT Spirit ESTAB PT - CHI LEVEL 4 [facility] 2020-11-28 2020-11-28 Outpatient STLMLC STLMLC [id number] Common 00:00:00 00:00:00 Spirit CHI [facility] 2020-11-10 2020-11-10 Outpatient STLMLC STLMLC [id number] Common 00:00:00 00:00:00 [facility] 2020-11-09 2020-11-09 Outpatient STLMLC STLMLC [id number] Common 00:00:00 00:00:00 [facility] 2020-11-02 2020-11-02 Outpatient STLMLC STLMLC [id number] Common 00:00:00 00:00:00 [facility] 2020-10-27 2020-10-27 Outpatient STLMLC STLMLC [id number] Common 00:00:00 00:00:00 [facility] 2020-10-16 2020-10-16 Outpatient STLMLC STLMLC [id number] Common 00:00:00 00:00:00 [facility] 2020-10-11 2020-10-11 Outpatient STLMLC STLMLC [id number] Common 00:00:00 00:00:00 [facility] 2020-09-23 2020-09-23 Outpatient STLMLC STLMLC [id number] Common 00:00:00 00:00:00 [facility] 2020-08-30 2020-08-30 Outpatient STLMLC STLMLC [id number] Common 00:00:00 00:00:00 [facility] 2020-08-11 2020-08-11 Outpatient STLMLC STLMLC [id number] Common 00:00:00 00:00:00 [facility] 2020-08-02 2020-08-02 Outpatient STLMLC STLMLC [id number] Common 00:00:00 00:00:00 [facility] 2020-07-20 2020-07-20 Outpatient STLMLC STLMLC [id number] Common 00:00:00 00:00:00 [facility] 2020-07-20 2020-07-20 Outpatient STLMLC STLMLC [id number] Common 00:00:00 00:00:00 [facility] 2020-07-12 2020-07-12 Outpatient STLMLC STLMLC [id number] Common 00:00:00 00:00:00 [facility] 2020-07-04 2020-07-04 Outpatient STLMLC STLMLC [id number] Common 00:00:00 00:00:00 [facility] 2020-06-17 2020-06-17 Outpatient STLMLC STLMLC [id number] Common 00:00:00 00:00:00 [facility] 2020-06-16 2020-06-16 Outpatient STLMLC STLMLC [id number] Common 00:00:00 00:00:00 [facility] 2020-04-27 2020-04-27 Outpatient STLMLC STLMLC [id number] Common 00:00:00 00:00:00 [facility] 2020-02-04 2020-02-04 Outpatient STLMLC STLMLC [id number] Common 00:00:00 00:00:00 [facility] 2020-01-26 2020-01-26 Outpatient STLMLC STLMLC [id number] Common 00:00:00 00:00:00 [facility] 2020-01-26 2020-01-26 Outpatient STLMLC STLMLC [id number] Common 00:00:00 00:00:00 [facility] 2019-10-12 2019-10-12 [id number] Common 08:06:00 08:06:00 [facility] [address] [facility] 2019-10-05 2019-10-05 [facility] [id number] Common 14:20:00 14:20:00 [facility] [address] [facility] 2019-09-14 2019-09-14 [facility] [id number] Common 09:43:00 09:43:00 [facility] [address] [facility] 2019-07-28 2019-07-28 [facility] [id number] Common 16:10:00 16:10:00 [facility] [address] [facility] 2019-07-28 2019-07-28 [facility] [id number] Common 10:18:00 10:18:[address] [facility] 2019-04-15 2019-04-15 [facility] [id number] Common 15:42:00 15:42:[address] [facility] 2019-04-09 2019-04-09 [facility] [id number] Common 13:08:00 13:08:[address] [facility] 2019-03-16 2019-03-16 [facility] [id number] Common 11:40:00 11:40:[address] [facility] 2019-01-22 2019-01-22 [facility] [id number] Common 16:11:00 16:11:[address] [facility] 2018-12-11 2018-12-11 [facility] [id number] Common 13:00:00 13:00:[address] [facility] 2018-09-09 2018-09-09 [facility] [id number] Common 13:00:00 13:00:[address] [facility] 2018-07-15 2018-07-15 [facility] [id number] Common 14:44:00 14:44:[address] [facility] 2018-06-11 2018-06-11 [facility] [id number] Common 16:22:00 16:22:[address] [facility] 2018-06-03 2018-06-03 [facility] [id number] Common 13:49:00 13:49:[address] [facility] 2018-05-21 2018-05-21 [facility] [id number] Common 13:00:00 13:00:[address] [facility] 2018-03-18 2018-03-18 [facility] [id number] Common 09:57:00 09:57:00 t [facility] [address] Spir [address] Road [facility] 2018-02-19 2018-02-19 [facility] [id number] Common 13:00:00 13:00:00 [facility] [address] Spir [address] [facility] 2017-12-04 2017-12-04 [facility] [id number] Common 14:17:00 14:17:00 [facility] [address] Spir [address] [facility] 2017-11-27 2017-11-27 [facility] [id number] Common 13:00:00 13:00:[address] [facility] 2017-09-25 2017-09-25 [facility] [id number] Common 16:32:00 16:32:00 [facility] [address] Spir [address] [facility] 2017-09-09 2017-09-09 [facility] [id number] Common 13:00:00 13:00:00 [facility] [address] Spir [address] [facility] Results Test Description Test Time Test Comments Results Result Comments Source HEMOGLOBIN A1C 2022-02-12 00:00:00 Test Item Value Reference Range Interpretation Comme nts A1C (test code = 4548-4) 6.3 POCT GLUCOSE (AUTOMATED)2021-11-20 15:01:41 Test Item Value Reference Range Interpretation Comments POCT GLU (test code = 9058251292) 166 mg/dL 70-110 H Lab Interpretation (test code = Abnormal 96900-8) [facility] [id number]:00:00 Test Item Value Reference Range Interpretation Comments A1C (test code = 4548-4) 6.9 HEMOGLOBIN [id number] 00:00:00 Test Item Value Reference Range Interpretation Comments A1C (test code = 4548-4) 8.1 HEMOGLOBIN [id number] 00:00:00 Test Item Value Reference Range Interpretation Comments A1C (test code = 4548-4) 6.7
[2023-01-02] MEDS: GABAPENTIN 300 MG CAP PO SCH ×3 (16:00→20:03)
[2023-01-02] MEDS ORDERED: HOME MED [ALBUTEROL INHALER 60 PUFF/8 GM] IH PRN (16:01)
[2023-01-02 16:14] LABS: Hematocrit 44.8 % (36.0-45.0)
[2023-01-02 16:38] VITALS: BMI 31.6
[2023-01-02] MEDS: CEFAZOLIN SODIUM 2 GM in NA CHLORIDE 0.9% 100 ML IVPB SCH (17:00)
--- NOTE | 2023-01-02 19:24 | P.OP ---
Preoperative diagnosis: right knee osteoarthritis Postoperative diagnosis: same Primary procedure: right total knee arthroplasty Anesthesia: general Estimated blood loss: 60 cc Specimen: right knee bone remnants Findings: see dictation Operative Technique: Indication For Procedure: Kenia is a 72 year-old female presenting to my clinic with signs, symptoms and x-ray findings consistent with severe right knee osteoarthritis. I discussed with the patient at length risks and benefits associated with operative and nonoperative treatment. She had failed conservative treatment measures and had significant difficulties with ADLs secondary to her pain. We discussed operative treatment and elected to proceed with right total knee arthroplasty. She expressed understanding and elected to proceed with operative treatment. Description Of Procedure: After informed consent was obtained, the patient was identified in the preoperative holding area. The right lower extremity was ma rked. The patient was then taken to the PACU where she underwent a right lower extremity adductor canal block performed by Anesthesia. She was then taken to the operating room, transferred to the operating table in supine fashion, and placed under general anesthesia. The right lower extremity was then prepped and draped in usual sterile fashion. A time-out was initiated. The correct patient and procedure were confirmed and identified. The patient did receive her preoperative prophylactic antibiotics. The right lower extremity was then exsanguinated and tourniquet was inflated to 300 mmHg. Approximately 15 cm longitudinal incision was made centered over the anterior aspect of the right knee. Dissection was then taken to the extensor mechanism and a medial parapatellar arthrotomy was performed. The patella was everted and dislocated laterally and the knee was flexed in the fat pad. Medial and lateral meniscus and ACL were all excised exposing the distal femur. Excess hypertrophic synovium was also excised within the suprapatellar pouch. The patient had an MRI of her right knee preoperatively for surgical planning and creation of cutting blocks. The cutting block was then placed over the distal femur and pins were then placed. The distal femoral cutting block was then placed over the pins. An carloz wing was then used to ensure proper depth cut and the distal femur was then cut. The chamfer cutting guide was then placed over the distal end of the femur. Anterior, posterior cuts as well as anterior and posterior chamfer cuts were then made again confirming proper depth of the cut using an Carloz wing. Excess bone remnants were then sent to pathology for further evaluation. Next, attention was taken to the proximal tibia. A tibial jig and tibial cutting block was then placed on proximal aspect of the right tibia and locked into position. Pins were then placed and alignment guide was then used to confirm proper alignment of the cut and then coronal and sagittal planes. Once this was confirmed, the cutting jig was placed over the pins and the proximal tibia was cut. Sizing trays were then selected and size 10 mm spacer was used and there was good overall balance in flexion and extension. Next, the trial implants were then placed using the size 8 standard CR femur and a size E tibia and an 10 mm MC poly. There was overall good range of motion and good stability. The trial implants were then removed. The wound was then irrigated thoroughly with normal saline and the knee was then injected with 20 cc of 0.5% Marcaine both in the posterior capsule and medial and lateral gutters as well as quadriceps tendon and periosteum. The tibia was then punched. The femur was drilled. The cement was then prepared on the back table. Cement was then placed first on the tibial surface followed by size E tibia. Excess cement was removed with [place] elevators. Size 8 standard CR femur was then placed on the distal femur after cement was placed on the distal femur. Excess cement was then removed and a size 10 mm MC trial poly was then placed. The knee was held in extension as the cement hardened. Undersurface of the patella was prepared debriding osteophytes using rongeurs as well as osteophytes.. Cement was placed on the undersurface of the patella after it was cut and a size 32 patella was placed. Once the cement was hardened, the knee was ranged, there was good overall stability both in flexion, extension and as well as stability with varus and valgus stresses. Trial poly was then removed and a size 10 mm MC poly was then placed and locked into position. The knee was then ranged again. There was good overall range of motion both for flexion and extension with good stability. The wound was then irrigated again thoroughly with normal saline using pulse lavage. Tourniquet was let down. Hemostasis was achieved using Bovie electrocautery. Extensor mechanism was then approximated using a #1 Vicryl both in interrupted and running fashion. The fascia was then approximated using 0 Vicryl. Subcutaneous tissue was approximated with a 2-0 Vicryl. Skin was approximated using radha. Sterile dressings were applied. The patient was awakened and transferred back in stable condition Complications: None Implants: Biomet Susy Persona 8 CR femur, E tibia, 10 MC poly, 32 patella Fluids & blood products: per anesthesia record; TT: 70 mins @ 300 mmHg Transferred to: Recovery Room Condition: Good
--- NOTE | 2023-01-02 19:31 | RAD REPORT ---
EXAM DESCRIPTION: RAD - Knee Right 2 View - 01/02/2023 2:34 pm CLINICAL HISTORY: Post Op COMPARISON: Knee Right 3 View dated 03/29/2022; Knee Right 3 View dated 07/13/2010 TECHNIQUE: Right knee, 3 views. FINDINGS: Sequelae of total right knee arthroplasty. Components in satisfactory alignment. Postsurgi ja changes with soft tissue gas and skin radha anteriorly. No fracture, dislocation or periosteal reaction.No joint effusion seen. No soft tissue abnormality. IMPRESSION: Expected sequelae of total right knee arthroplasty as above.
[2023-01-03] MEDS: HYDROCODONE/APAP 10/325 TAB PO PRN ×2 (01:14→10:23)
[2023-01-03] MEDS: CEFAZOLIN SODIUM 2 GM in NA CHLORIDE 0.9% 100 ML IVPB SCH ×2 (01:14→09:21)
[2023-01-03] MEDS: ENOXAPARIN 30 MG/0.3 ML SQ SCH ×2 (06:00→09:21)
[2023-01-03] MEDS ORDERED: LEVOTHYROXINE SOD 0.1 MG TAB PO SCH (06:30)
[2023-01-03] MEDS ORDERED: PANTOPRAZOLE 40MG TABLET PO SCH (07:30)
[2023-01-03 07:36] LABS: Hematocrit 39.8 % (36.0-45.0)
[2023-01-03] MEDS ORDERED: METFORMIN ER 500 MG TAB PO SCH (08:00)
[2023-01-03] MEDS ORDERED: DULOXETINE 30 MG CAP PO SCH (09:00)
[2023-01-03] MEDS ORDERED: PARoxetine HCL 10 MG TAB PO SCH (09:00)
[2023-01-03] MEDS ORDERED: HOME MED 1 EA UNK (Duloxetine Hcl [Duloxetine Hcl] 60 MG Capsule.Dr) PO SCH (09:00)
[2023-01-03] MEDS ORDERED: ATORVASTATIN 20 MG TAB PO SCH (09:00)
[2023-01-03] MEDS ORDERED: HOME MED 1 EA UNK (Semaglutide [Rybelsus] 14 MG Tablet) PO SCH (09:00)
[2023-01-03] MEDS ORDERED: HOME MED 1 EA UNK (Metformin Hcl [Metformin Er Gastric] 1,000 MG Tabergr24h) PO SCH (09:00)
[2023-01-03] MEDS ORDERED: LOSARTAN/HCTZ 50-12.5 PO SCH (09:00)
[2023-01-03] MEDS ORDERED: CELECOXIB 100 MG CAPSULE PO SCH (09:00)
[2023-01-03] MEDS ORDERED: HOME MED 1 EA UNK (Paroxetine Hcl [Paxil] 40 MG Tablet) PO SCH (09:00)
[2023-01-03] MEDS ORDERED: HOME MED 1 EA UNK (Omeprazole [Prilosec] 40 MG Capsule.Dr) PO SCH (09:00)
[2023-01-03] MEDS: GABAPENTIN 300 MG CAP PO SCH (09:18)
[2023-01-03 11:20] VITALS: O2SAT 97
--- NOTE | 2023-01-03 11:38 | P.DS ---
Admission Date: 01/02/23 Discharge Date: 01/03/23 Disposition: DC HOME/HOME HEALTH CARE Discharge Condition: GOOD Consultations: None Procedures: Right total knee arthroplasty on January 02, 2023 Brief History of Present Illness: Kenia is a 72-year-old female that underwent right total knee arthroplasty on January 02, 2023 without complication. She was admitted to floor in stable condition. Hospital Course: Kenia is a 72-year-old female that underwent right total knee arthroplasty on January 02, 2023 without complication. She was admitted to floor in stable condition. Her pain was controlled while on the floor and mobilize safely with physical therapy. She was discharged in stable condition. She was given Lovenox while in the hospital for DVT prophylaxis and was discharged on Xarelto. She will follow-up in 2 weeks for reevaluation and staple removal. Vital Signs/Physical Exam: Temp Pulse Resp BP Pulse Ox 96.3 F L 66 16 116/59 L 97 01/03/23 08:00 01/03/23 09:18 01/03/23 08:00 01/03/23 09:18 01/03/23 08:00 Laboratory Data at Discharge: WBC 11.00 thou/uL (4.3-10.9) H 12/28/22 10:49 Hgb 13.1 g/dL (12.0-15.0) D 01/03/23 07:23 Hct 39.8 % (36.0-45.0) 01/03/23 07:23 Plt Count 317 thou/uL (152-406) 12/28/22 10:49 PT 9.7 SECONDS (9.5-12.5) 12/28/22 10:49 INR 0.88 12/28/22 10:49 APTT 35.8 SECONDS (24.3-36.9) 12/28/22 10:49 Sodium 142 mEq/L (136-145) 12/28/22 10:49 Potassium 3.8 mEq/L (3.5-5.1) 12/28/22 10:49 BUN 17 mg/dL (7-18) 12/28/22 10:49 Creatinine 0.76 mg/dL (0.55-1.02) 12/28/22 10:49 Glucose 107 mg/dL (74-106) H 12/28/22 10:49 Home Medications: Albuterol Inhaler [Ventolin Inhaler*] 1 puff .ROUTE DAILY PRN 12/28/22 Atorvastatin Calcium 20 mg PO DAILY 12/28/22 Budesonide/Formoterol Fumarate [Symbicort 160-4.5 Mcg Inhaler] 1 inh .ROUTE DAILY PRN 12/28/22 Duloxetine HCl 60 mg PO DAILY 12/28/22 Gabapentin 600 mg PO TID 12/28/22 Hydrocodone Bit/Acetaminophen [[place] 10-325 Tablet] 1 tab PO TID PRN 12/28/22 Levothyroxine [Synthroid*] 100 mcg PO DAILY 12/28/22 Losartan/Hydrochlorothiazide [Losartan-Hctz 50-12.5 mg Tab] 1 tab PO DAILY 12/28/22 Metformin HCl [Metformin ER Gastric] 1 tab PO DAILY 12/28/22 Omeprazole [Prilosec] 40 mg PO DAILY 12/28/22 PARoxetine HCL [Paxil] 40 mg PO DAILY 12/28/22 Semaglutide [Rybelsus] 14 mg PO DAILY 12/28/22 Physician Discharge Instructions: Keep dressing clean, dry and intact. Begin Xarelto tomorrow, January 04, with breakfast and take once daily until prescription completed. Use bilateral thigh-high KELL hose for 2 weeks to aid with swelling. Follow-up with Dr. Davis in 2 weeks for staple removal. Diet: ADA Activity: Weight bearing as tolerated Followup: Sharri Hull NP [Primary Care Provider] - Juwan Davis MD [ACTIVE - CAN ADMIT] - 1-2 Weeks
[2023-01-03 12:13] VITALS: BP 136/70; TEMP 97.9
== END 2023-01-03 12:25 | disposition home health service (06) ==
LOC: OR 08:30 → 2ND 13:54
PROVIDERS: ADMIT Orthopaedic Surgery Sports Medicine; ATTEND Orthopaedic Surgery Sports Medicine
PROC: 0SRC069 Replacement of Right Knee Joint with Oxidized Zirconium on Polyethylene Synthetic Substitute, Cemented, Open Approach (ICD-10-PCS; principal; 2023-01-02 11:00)
DX: M17.11 Unilateral primary osteoarthritis, right knee (principal)
CPT/HCPCS: 93005; 85025; 80048; 36415 ×3; 85610; 82947 ×6; 88304; 88311; 85730; 85018 ×2; 85014 ×2; 73560; 97116; 97139; 97161; 97530; 94010; 27447; J3475; A4216; J2704; J0171; J2001 ×3; J1650 ×2; J2250; J3010; J1100; J2405; G0378 ×3; J7030; G0379; 88305